=== PATIENT | male | born 1940 | race Caucasian/White ===

== ENCOUNTER 2017-04-20 12:06 | Inpatient (IN) ==
[2017-04-20] MEDS ORDERED: *HR* HYDROmorphone (PF) 1 MG/ML SYRINGE IVP ONE ×2 (12:27→14:17)
[2017-04-20] MEDS ORDERED: Ondansetron 4 MG/2 ML VIAL IVP PRN ×2 (12:27→21:21)
[2017-04-20] MEDS ORDERED: 0.9 % Sodium Chloride 1,000 ML IVC ONE (12:27)
[2017-04-20 12:50] LABS: Basophils # 0.1 K/mcL (0.0-0.2); Eosinophils # 0.4 K/mcL (0.0-0.6); Eosinophils % 4.3 %; Hematocrit 31.7 % (37.5-50.1); Hemoglobin 9.9 g/dL (12.9-16.9); Immature Granulocytes % 0.3 % (0-4); Lymphocytes % 10.3 %; Mean Corpuscular HGB Conc 31.2 g/dL (31.6-35.5); Mean Corpuscular Hemoglobin 30.7 pg (28.0-33.3); Mean Corpuscular Volume 98.4 fL (83.0-100.0); Monocytes # 0.7 K/mcL (0.0-1.3); Monocytes % 7.7 %; Neutrophils # 7.2 K/mcL (1.6-8.9); Platelet Count 251 K/mcL (140-400); Red Blood Count 3.22 M/mcL (4.19-5.50); Red Cell Distribution Width 14.6 % (11.5-14.5); Segmented Neutrophils % 76.4 %
--- NOTE | 2017-04-20 12:54 | Emergency Department Note ---
Disposition Clinical Impression: Left upper limb pain, Left upper extremity swelling Disposition: Admitted As Inpatient Condition: Fair Extremity Problem HPI - General Chief complaint: ED Extremity Problem,Nontraumatic Stated complaint: Left hand swelling/pain Time Seen by Provider: 04/20/17 12:15 Source: patient Mode of arrival: private vehicle Limitations: no limitations Nursing Notes Reviewed: Yes Vital Signs Reviewed: Yes - History of Present Illness HPI Narrative: 76-year-old male history of ESRD postoperative day 7 from left upper extremity thromboendarterectomy and fistula placement who presents to the ER with a chief complaint of left upper extremity pain. Patient reports he has had swelling in the left upper extremities since the procedure but it has worsened over the last week. States he was taking his home pain medication regimen prescribed by his vascular surgeon but the pain became unbearable today so he came in for evaluation. He is scheduled to follow up with his vascular surgeon tomorrow. Patient states he is right-hand dominant. He does report some paresthesias to the left hand and forearm. Does have decreased range of motion of the left hand secondary to swelling and pain. Pt Subjective Complaint: extremity pain, extremity swelling Onset (ago): day(s) Consistency: Worsening Injury Location: left, upper extremity Pain Scale: 9 Improves with: nothing Worsens with: nothing Associated symptoms: Reports: denies other symptoms Context: recent surgery/procedure - Related Data Home Medications Medication Instructions Recorded Confirmed Aspirin 81 mg PO DAILY 09/07/15 04/20/17 Atorvastatin [Lipitor] 40 mg PO DAILY 09/07/15 04/20/17 Calcitriol [Rocaltrol] 0.25 mcg PO BID 09/07/15 04/20/17 Calcium Carbonate/Vitamin D3 1 each PO DAILY 09/07/15 04/20/17 [Calcium 500-Vit D3 400 Tablet] Cyanocobalamin (Vitamin B-12) 500 mcg SL DAILY 09/07/15 04/20/17 [Vitamin B-12] Furosemide [Lasix] 40 mg PO DAILY 09/07/15 04/20/17 Gabapentin [Neurontin] 600 mg PO HS 09/07/15 04/20/17 Gluc/Samy-MSM#1/C/Heber/Slava/Bor 1 each PO DAILY 09/07/15 04/20/17 [Osteo Bi-Flex Caplet] Insulin Glargine [Lantus] 15 unit SQ QAM 09/07/15 04/20/17 Propafenone [Rhythmol] 150 mg PO BID 09/07/15 04/20/17 Sodium Bicarbonate 325 mg PO BID 09/07/15 04/20/17 Warfarin [Coumadin] 2.5 mg PO [id number] 09/07/15 04/20/17 Warfarin [Coumadin] 5 mg PO MO 09/07/15 04/20/17 clonazePAM [Klonopin] 0.5 mg PO HS 09/07/15 04/20/17 Calcium Acetate 667 mg PO TID 04/13/17 04/20/17 Cilostazol [Pletal] 100 mg PO BID 04/13/17 04/20/17 Multivitamin [One Daily Essential] 1 tab PO DAILY 04/13/17 04/20/17 Allergies Allergy/AdvReac Type Severity Reaction Status Date / Time Sulfa (Sulfonamide Allergy Rash Verified 04/20/17 12:13 Antibiotics) All systems ED: reviewed and negative except as stated. Cardiovascular: Denies: chest pain Respiratory: Denies: dyspnea Gastrointestinal: Denies: abdominal pain Integumentary: Reports: lesions Neurological: Reports: paresthesias Past Medical History - Past Medical History Medical history: Reports: atrial fibrillation, COPD, coronary artery disease, diabetes, GERD, hyperlipidemia, hypertension, myocardial infarction, other Surgical history: Reports: bariatric surgery, cholecystectomy, pacemaker/AICD, other Psychiatric history: Reports: no psych history, anxiety - Social History Smoking Status: Never smoker Smokeless Tobacco Status: No Alcohol use: Reports: none Drug use: Reports: none Physical Exam - General Limitations: no limitations General appearance: alert, in no apparent distress - Head Head exam: atraumatic, normocephalic - Eye Eye exam: Present: normal appearance - ENT ENT exam: normal exam - Neck Neck exam: Present: normal inspection, full ROM - Chest Chest inspection: Present: normal inspection, symmetric chest wall rise - Respiratory Respiratory exam: Present: normal lung sounds bilaterally - Cardiovascular Cardiovascular exam: Present: regular rate, normal rhythm, normal heart sounds - Abdominal Exam Abdominal exam: Present: soft, Non-Tender. Absent: tenderness - Expanded Upper Extremity Exam Shoulder exam: Present: normal inspection, full ROM Arm exam: Present: swelling (Mild soft tissue swelling) Elbow exam: Present: tenderness, other (bruit palpated just medial to the left elbow) Forearm/Wrist exam: Present: tenderness, swelling (Soft tissue swelling of the elbow distal to the hand) Hand exam: Present: tenderness (There is tenderness over the dorsum of the left hand with significant soft tissue swelling and ecchymosis), swelling, ecchymosis. Absent: full ROM Course Course Narrative: Patient seen and examined upon arrival. Unable to appreciate a radial pulse by ultrasound or palpation. Bruit is present adjacent to the medial epicondyle. He has significant soft tissue swelling more appreciable just proximal to the elbow and distal to the hand. His hand is cold to the touch with a delayed cap refill of 4 seconds. Plan to discuss with his mold yard supervisor and vascular surgeon for workup and management. - Reevaluation(s) Reevaluation #1: Discussed with emergency vehicle technician after arterial and venous studies. Reports the patient was unable to tolerate some of the procedure but they were able to visualize to mistreated and no proximal DVT normal arterial flow and patency of his fistula. I relayed these findings to the patient was agreeable with admission. He does feel better after some pain medication. I will also discuss with his vascular surgeon given his ultrasound findings - Consultations Consultation #1: I spoke with the on-call mold yard supervisor Dr. Mcdonald. The patient follows with him for end-stage renal disease currently being managed without dialysis. Discussed the patient's history and exam and concerns. He agrees with concern for a still syndrome and recommends we also speak with vascular surgery. Reports that if we have to do a dye load at study to treat with gentle fluids as well as NAC and the patient will likely require dialysis. Consultation #2: I spoke with the on-call vascular surgeon Dr. Ambrose. Patient is postoperative day 7 from a left upper extremity radial thromboendarterectomy and fistula placement. Here we were unable to appreciate a radial pulse by ultrasound or palpation. Discussed with the vascular surgeon who reports that he had poor radial signal operatively. Does report to check and ulnar pulse as well as pursue arterial Doppler imaging. Agreeable with DVT rule out of the upper betsy by ultrasound as well. Does not recommend angiogram for evaluation. Consultation #3: I spoke again with the patient's vascular surgeon and mold yard supervisor. They are both in agreement to evaluate the patient in the hospital and consultation. Vital Signs Temperature 98.1 F 04/20/17 12:10 Pulse Rate 93 04/20/17 12:10 Respiratory Rate 20 04/20/17 12:10 Blood Pressure 188/82 04/20/17 12:10 O2 Sat by Pulse Oximetry 94 04/20/17 12:10 Temperature 98.0 F 04/24/17 11:46 Pulse Rate 52 04/24/17 11:46 Respiratory Rate 15 04/24/17 11:46 Blood Pressure 144/62 04/24/17 11:46 O2 Sat by Pulse Oximetry 91 04/24/17 11:46 Oxygen Delivery Oxygen Delivery Room Air Extremity Problem, Nontraumati - MDM Narrative Medical decision making narrative: 76-year-old male presents to the ER to the left upper extremity pain and swelling. He is postoperative day 7 from a left upper extremity fistula placement for dialysis. Here noted to have an absent radial pulse on exam with the presence of an ulnar pulse. Case discussed with his vascular surgeon who reported that his radial signal was poor when he evaluated him one week ago. Did discuss about ultrasound for DVT evaluation as well as Doppler study. Ultrasound does not demonstrate a proximal DVT with flow confirmed through the fistula however the patient was unable to tolerate the full procedure. Case discussed with his mold yard supervisor and vascular surgeon. He is admitted to the hospitalist service for pain control and for further management. - Medical Records Medical records reviewed: Yes I reviewed the patient's medical records. - Lab Data Lab results reviewed: Yes I reviewed the patient's lab results. Result diagrams: 04/24/17 03:55 04/24/17 03:55 Lab Results 04/20/17 04/20/17 04/20/17 Range/Units 12:40 12:40 12:40 WBC 9.4 (4.3-11.1) K/mcL RBC 3.22 L (4.19-5.50) M/mcL Hgb 9.9 L (12.9-16.9) g/dL Hct 31.7 L (37.5-50.1) % MCV 98.4 (83.0-100.0) fL MCH 30.7 (28.0-33.3) pg MCHC 31.2 L (31.6-35.5) g/dL RDW 14.6 H (11.5-14.5) % Plt Count 251 (140-400) K/mcL MPV 10.0 (9.4-12.4) fL Immature Gran % 0.3 (0-4) % Seg Neutrophils % 76.4 % Lymphocytes % 10.3 % Monocytes % 7.7 % Eosinophils % 4.3 % Basophils % 1.0 % Neutrophils # 7.2 (1.6-8.9) K/mcL Lymphocytes # 1.0 (0.6-4.6) K/mcL Monocytes # 0.7 (0.0-1.3) K/mcL Eosinophils # 0.4 (0.0-0.6) K/mcL Basophils # 0.1 (0.0-0.2) K/mcL PT 15.3 H (9.4-12.1) Seconds INR 1.4 APTT 33.5 (26.0-36.0) Seconds Sodium 140 (136-145) mEq/L Potassium 3.8 (3.5-5.1) mEq/L Chloride 109 H (98-107) mEq/L Carbon Dioxide 18 L (23-29) mEq/L BUN 119 H (8-23) mg/dL Creatinine 6.28 H (0.70-1.30) mg/dL Est GFR ( Amer) 11 L (> 60) Est GFR (Non-Af Amer) 9 L (> 60) BUN/Creatinine Ratio 19 (6-26) Glucose 185 H (70-105) mg/dL POC Glucose (58-89) Calculated Osmolality 333 H (280-300) Lactic Acid (0.5-2.2) mmol/L Calcium 9.0 (8.6-10.3) mg/dL Magnesium (1.6-2.6) mg/dL Total Bilirubin (0.3-1.0) mg/dL AST (13-39) Units/L ALT (7-52) Units/L Alkaline Phosphatase (34-104) Units/L Serum Total Protein (6.4-8.9) g/dL Albumin (3.5-5.7) g/dL Globulin (2.4-3.5) g/dL Albumin/Globulin Ratio (1.1-2.2) Triglycerides (< 150) mg/dL Cholesterol (< 200) mg/dL LDL Cholesterol, Calc (0-99) mg/dL VLDL Cholesterol, Calc (< 31) mg/dL HDL Cholesterol (40-59) mg/dL Cholesterol/HDL Ratio (0-4.9) Hep Bs Antigen (Nonreactive) Hep Bs Antibody mIU/mL Specimen Rejected 04/20/17 04/20/17 04/20/17 Range/Units 14:47 18:10 21:21 WBC (4.3-11.1) K/mcL RBC (4.19-5.50) M/mcL Hgb (12.9-16.9) g/dL Hct (37.5-50.1) % MCV (83.0-100.0) fL MCH (28.0-33.3) pg MCHC (31.6-35.5) g/dL RDW (11.5-14.5) % Plt Count (140-400) K/mcL MPV (9.4-12.4) fL Immature Gran % (0-4) % Seg Neutrophils % % Lymphocytes % % Monocytes % % Eosinophils % % Basophils % % Neutrophils # (1.6-8.9) K/mcL Lymphocytes # (0.6-4.6) K/mcL Monocytes # (0.0-1.3) K/mcL Eosinophils # (0.0-0.6) K/mcL Basophils # (0.0-0.2) K/mcL PT (9.4-12.1) Seconds INR APTT (26.0-36.0) Seconds Sodium (136-145) mEq/L Potassium (3.5-5.1) mEq/L Chloride (98-107) mEq/L Carbon Dioxide (23-29) mEq/L BUN (8-23) mg/dL Creatinine (0.70-1.30) mg/dL Est GFR ( Amer) (> 60) Est GFR (Non-Af Amer) (> 60) BUN/Creatinine Ratio (6-26) Glucose (70-105) mg/dL POC Glucose 167 H 151 H (58-89) Calculated Osmolality (280-300) Lactic Acid 1.0 (0.5-2.2) mmol/L Calcium (8.6-10.3) mg/dL Magnesium (1.6-2.6) mg/dL Total Bilirubin (0.3-1.0) mg/dL AST (13-39) Units/L ALT (7-52) Units/L Alkaline Phosphatase (34-104) Units/L Serum Total Protein (6.4-8.9) g/dL Albumin (3.5-5.7) g/dL Globulin (2.4-3.5) g/dL Albumin/Globulin Ratio (1.1-2.2) Triglycerides (< 150) mg/dL Cholesterol (< 200) mg/dL LDL Cholesterol, Calc (0-99) mg/dL VLDL Cholesterol, Calc (< 31) mg/dL HDL Cholesterol (40-59) mg/dL Cholesterol/HDL Ratio (0-4.9) Hep Bs Antigen (Nonreactive) Hep Bs Antibody mIU/mL Specimen Rejected 04/21/17 04/21/17 04/21/17 Range/Units 04:06 04:06 04:06 WBC (4.3-11.1) K/mcL RBC (4.19-5.50) M/mcL Hgb (12.9-16.9) g/dL Hct (37.5-50.1) % MCV (83.0-100.0) fL MCH (28.0-33.3) pg MCHC (31.6-35.5) g/dL RDW (11.5-14.5) % Plt Count (140-400) K/mcL MPV (9.4-12.4) fL Immature Gran % (0-4) % Seg Neutrophils % % Lymphocytes % % Monocytes % % Eosinophils % % Basophils % % Neutrophils # (1.6-8.9) K/mcL Lymphocytes # (0.6-4.6) K/mcL Monocytes # (0.0-1.3) K/mcL Eosinophils # (0.0-0.6) K/mcL Basophils # (0.0-0.2) K/mcL PT 16.2 H (9.4-12.1) Seconds INR 1.5 APTT 31.7 (26.0-36.0) Seconds Sodium 136 (136-145) mEq/L Potassium 4.6 (3.5-5.1) mEq/L Chloride 110 H (98-107) mEq/L Carbon Dioxide 11 L (23-29) mEq/L BUN 121 H (8-23) mg/dL Creatinine 6.28 H (0.70-1.30) mg/dL Est GFR ( Amer) 11 L (> 60) Est GFR (Non-Af Amer) 9 L (> 60) BUN/Creatinine Ratio 19 (6-26) Glucose 218 H (70-105) mg/dL POC Glucose (58-89) Calculated Osmolality 327 H (280-300) Lactic Acid (0.5-2.2) mmol/L Calcium 8.2 L (8.6-10.3) mg/dL Magnesium 1.8 (1.6-2.6) mg/dL Total Bilirubin 0.6 (0.3-1.0) mg/dL AST 19 (13-39) Units/L ALT 5 L (7-52) Units/L Alkaline Phosphatase 135 H (34-104) Units/L Serum Total Protein 6.3 L (6.4-8.9) g/dL Albumin 3.3 L (3.5-5.7) g/dL Globulin 3.0 (2.4-3.5) g/dL Albumin/Globulin Ratio 1.1 (1.1-2.2) Triglycerides 88 (< 150) mg/dL Cholesterol 64 (< 200) mg/dL LDL Cholesterol, Calc 25 (0-99) mg/dL VLDL Cholesterol, Calc 18 (< 31) mg/dL HDL Cholesterol 21 L (40-59) mg/dL Cholesterol/HDL Ratio 3.0 (0-4.9) Hep Bs Antigen (Nonreactive) Hep Bs Antibody mIU/mL Specimen Rejected Clotted 04/21/17 04/21/17 04/21/17 Range/Units 05:27 07:11 10:45 WBC 8.0 (4.3-11.1) K/mcL RBC 3.00 L (4.19-5.50) M/mcL Hgb 9.2 L (12.9-16.9) g/dL Hct 29.9 L (37.5-50.1) % MCV 99.7 (83.0-100.0) fL MCH 30.7 (28.0-33.3) pg MCHC 30.8 L (31.6-35.5) g/dL RDW 14.7 H (11.5-14.5) % Plt Count 221 (140-400) K/mcL MPV 9.8 (9.4-12.4) fL Immature Gran % 0.4 (0-4) % Seg Neutrophils % 71.2 % Lymphocytes % 12.9 % Monocytes % 11.4 % Eosinophils % 3.1 % Basophils % 1.0 % Neutrophils # 5.7 (1.6-8.9) K/mcL Lymphocytes # 1.0 (0.6-4.6) K/mcL Monocytes # 0.9 (0.0-1.3) K/mcL Eosinophils # 0.3 (0.0-0.6) K/mcL Basophils # 0.1 (0.0-0.2) K/mcL PT (9.4-12.1) Seconds INR APTT (26.0-36.0) Seconds Sodium (136-145) mEq/L Potassium (3.5-5.1) mEq/L Chloride (98-107) mEq/L Carbon Dioxide (23-29) mEq/L BUN (8-23) mg/dL Creatinine (0.70-1.30) mg/dL Est GFR ( Amer) (> 60) Est GFR (Non-Af Amer) (> 60) BUN/Creatinine Ratio (6-26) Glucose (70-105) mg/dL POC Glucose 188 H 139 H (58-89) Calculated Osmolality (280-300) Lactic Acid (0.5-2.2) mmol/L Calcium (8.6-10.3) mg/dL Magnesium (1.6-2.6) mg/dL Total Bilirubin (0.3-1.0) mg/dL AST (13-39) Units/L ALT (7-52) Units/L Alkaline Phosphatase (34-104) Units/L Serum Total Protein (6.4-8.9) g/dL Albumin (3.5-5.7) g/dL Globulin (2.4-3.5) g/dL Albumin/Globulin Ratio (1.1-2.2) Triglycerides (< 150) mg/dL Cholesterol (< 200) mg/dL LDL Cholesterol, Calc (0-99) mg/dL VLDL Cholesterol, Calc (< 31) mg/dL HDL Cholesterol (40-59) mg/dL Cholesterol/HDL Ratio (0-4.9) Hep Bs Antigen (Nonreactive) Hep Bs Antibody mIU/mL Specimen Rejected 04/21/17 Range/Units 12:40 WBC (4.3-11.1) K/mcL RBC (4.19-5.50) M/mcL Hgb (12.9-16.9) g/dL Hct (37.5-50.1) % MCV (83.0-100.0) fL MCH (28.0-33.3) pg MCHC (31.6-35.5) g/dL RDW (11.5-14.5) % Plt Count (140-400) K/mcL MPV (9.4-12.4) fL Immature Gran % (0-4) % Seg Neutrophils % % Lymphocytes % % Monocytes % % Eosinophils % % Basophils % % Neutrophils # (1.6-8.9) K/mcL Lymphocytes # (0.6-4.6) K/mcL Monocytes # (0.0-1.3) K/mcL Eosinophils # (0.0-0.6) K/mcL Basophils # (0.0-0.2) K/mcL PT (9.4-12.1) Seconds INR APTT (26.0-36.0) Seconds Sodium (136-145) mEq/L Potassium (3.5-5.1) mEq/L Chloride (98-107) mEq/L Carbon Dioxide (23-29) mEq/L BUN (8-23) mg/dL Creatinine (0.70-1.30) mg/dL Est GFR ( Amer) (> 60) Est GFR (Non-Af Amer) (> 60) BUN/Creatinine Ratio (6-26) Glucose (70-105) mg/dL POC Glucose (58-89) Calculated Osmolality (280-300) Lactic Acid (0.5-2.2) mmol/L Calcium (8.6-10.3) mg/dL Magnesium (1.6-2.6) mg/dL Total Bilirubin (0.3-1.0) mg/dL AST (13-39) Units/L ALT (7-52) Units/L Alkaline Phosphatase (34-104) Units/L Serum Total Protein (6.4-8.9) g/dL Albumin (3.5-5.7) g/dL Globulin (2.4-3.5) g/dL Albumin/Globulin Ratio (1.1-2.2) Triglycerides (< 150) mg/dL Cholesterol (< 200) mg/dL LDL Cholesterol, Calc (0-99) mg/dL VLDL Cholesterol, Calc (< 31) mg/dL HDL Cholesterol (40-59) mg/dL Cholesterol/HDL Ratio (0-4.9) Hep Bs Antigen Nonreactive (Nonreactive) Hep Bs Antibody 0.00 mIU/mL Specimen Rejected - Radiology Data Radiology results reviewed: Yes I reviewed the patient's radiology results. Yulissa - Yulissa Situation: Demographics, MOA Background: Presenting Complaint, Relevant PMH, Meds, & Allergies Assessment: Course and respsone to treatment, Exam Concerns, Patient/Family Expectation Recommendation: Barrier(s) to disposition, Recommendation based on pending studies, treatments, or consults SMaximilian Report Given to: Dr. Elise Duenas Repor Time: 15:02 Attestation Statement - Attestation Attestation: I, Joe Villareal, examined this patient and my medical decision-making was reviewed with the DESKIDDING MACHINE OPERATOR/PA/Advanced Practice Nurse/Resident Physician. I agree with the documented findings, disposition and treatment plan as described except to the extent set forth below. 76-year-old male presents to emergency room with concerns of left upper extremity pain and swelling. Patient is status post thromboendarterectomy and fistula placement of the left upper extremity 7 days. On initial presentation the patient has significant edema of the left upper extremity. He has decreased pulse to the radial artery of the left upper extremity. Resident spoke with the vascular surgeon who is familiar with this patient's case and presentation who stated patient had poor radial artery flow to begin with. Patient has identifiable flow within the radial artery although it is limited however there is palpable pulse to the ulnar artery. Initial concern was for possible compartment syndrome however after speaking with the vascular surgeon we will forego the CTA of the left upper extremity and obtain ultrasound of the left of her x-rays to rule out DVT and to further evaluate vascular flow. Patient will be admitted to the hospital for further care and evaluation.
[2017-04-20 12:55] LABS: INR 1.4; Prothrombin Time 15.3 Seconds (9.4-12.1)
[2017-04-20 12:58] LABS: Activated Partial Thrombo Time 33.5 Seconds (26.0-36.0)
[2017-04-20 13:08] LABS: Potassium 3.8 mEq/L (3.5-5.1)
[2017-04-20] MEDS ORDERED: Naloxone 0.4 MG/ML INJ IVP PRN (21:21)
[2017-04-20] MEDS ORDERED: Acetaminophen 325 MG TABLET PO PRN (21:21)
[2017-04-20] MEDS ORDERED: Dextrose Gel 15 GM PO PRN ×2 (21:31)
[2017-04-20] MEDS ORDERED: D5% in Water 1,000 ML IVC PRN (21:31)
[2017-04-20] MEDS ORDERED: *HR* Dextrose 50 % in Water (Syg) 50 ML SYRINGE IVP PRN (21:31)
[2017-04-20] MEDS: Insulin LISPRO 300 UNITS/3 ML VIAL SQ SCH (21:54)
--- NOTE | 2017-04-20 23:08 | Internal Med History&Physical ---
Date of Encounter: 04/20/17 Time of Encounter: 20:00 Assessment and Plan (1) Pain and swelling of left upper extremity Current visit: Yes Status: Acute Acute edema and erythema of LUE 1 week following thromboendarterectomy and fistula placement. Consults placed to Nephrology and Surgery in ED and I appreciate the consults. Pt. to be NPO @ midnight for possible surgical intervention in a.m. Will hold Coumadin tonight and resume tomorrow if surgery is not warranted. Continue Rhythmol and aspirin. Stair-step pain medications for pain mgmt. Pt. discussed w/Dr. Meraz who agrees w/plan of care. Pt. is at high risk for further morbidity based on current pain/sweeling/sx in LUE and current GFR of 9 and creatinine of 6.28. Observation. (2) GERD (gastroesophageal reflux disease) Current visit: Yes Status: Chronic Hx of chronic GERD. IVP Zofran 6 mg Q6 PRN. Prilosec 40 mg daily. Qualifiers: Esophagitis presence: esophagitis presence not specified Qualified Code(s) : K21.9 - Gastro-esophageal reflux disease without esophagitis (3) HLD (hyperlipidemia) Current visit: Yes Status: Chronic Hx of chronic HLD. Lipid panel in a.m. labs. Continue pts. Lipitor. Qualifiers: Hyperlipidemia type: pure hypercholesterolemia Qualified Code(s): E78.00 - Pure hypercholesterolemia, unspecified; E78.0 - Pure hypercholesterolemia (4) HTN (hypertension) Current visit: Yes Status: Chronic Hx of chronic HTN. Pt. does not currently take HTN medication. Monitor pt. and VS. Qualifiers: Hypertension type: essential hypertension Qualified Code(s): I10 - Essential (primary) hypertension (5) Atrial fibrillation Current visit: Yes Status: Chronic Hx of chronic paroxysmal atrial fibrillation. Continuous cardiac telemetry. Continue pts. Rhythmol and aspirin therapy. Will hold Coumadin d/t possible surgical intervention in a.m. and continue w/pharmacy dosing tomorrow if surgery is not warranted. Qualifiers: Atrial fibrillation type: paroxysmal Qualified Code(s): I48.0 - Paroxysmal atrial fibrillation (6) CAD (coronary artery disease) Current visit: Yes Status: Chronic Hx of chronic CAD w/hx of angioplasty and stent placement x2. Continuous cardiac telemetry. Continue patient's Lipitor, aspirin therapy, and Rythmol. We will hold patient's Coumadin due to possible surgical intervention tomorrow. If surgery is not recommended or warranted, will continue patient's Coumadin with pharmacy dosing. Qualifiers: Coronary Disease-Associated Artery/Lesion type: unspecified vessel or lesion type Associated angina: without angina Qualified Code(s): I25.10 - Atherosclerotic heart disease of [place] coronary artery without angina pectoris (7) Diabetes Current visit: Yes Status: Chronic Hx of chronic diabetes controlled w/insulin. Continue pts. a.m. insulin and add low-dose correction insulin sliding scale with hypoglycemic protocol. A1c in a.m. labs. BG checks before meals at bedtime. Qualifiers: Diabetes mellitus type: type 2 Diabetes mellitus complication status: without complication Diabetes mellitus shelter insulin use: with superintendent container terminal use Qualified Code(s): E11.9 - Type 2 diabetes mellitus without complications (8) ESRD (end stage renal disease) Current visit: Yes Status: Chronic Hx of ESRD. Pt. had LUE thromboendarterectomy and fistula placement one week ago. Current creatinine 6.28 and GFR 9. Will use IV fluids judiciously and avoid nephrotoxins. (9) DVT prophylaxis Current visit: Yes Status: Acute Bilateral SCDs on LEs for DVT prophylaxis d/t possible surgical intervention in the a.m. on LUE. Internal Medicine - H&P: HPI Chief complaint: LUE swelling/pain Admitted From: Emergency Dept Plans for Post Hospital Care: Home History of present illness: Mr. Nicole is a 76 year old male with medical hx of atrial fibrillation, COPD, CAD, diabetes controlled with insulin, GERD, HLD, HTN, and history of angioplasty with stent placement 2 presents to ED with chief complaint of erythema and edema to left upper extremity. Patient reports surgery in 1 week ago in [facility]. Pt reports pain and swelling began 1 day after surgery which has worsened in the past 2 days. Pt. reports residual weakness to the LUE and LLE d/ t previous stroke. Patient denies recent illness, fever, chills, nausea, vomiting, chest pain, palpitations, changes in vision, headache, cough, congestion, unusual bleeding, diarrhea, constipation, numbness, tingling, dizziness, lightheadedness, pre-syncope, or syncope. Past Med Surg Social Fam HX - Past Medical History Source: patient, old records reviewed Medical history: atrial fibrillation, COPD, coronary artery disease, diabetes, GERD, hyperlipidemia, hypertension, myocardial infarction, other Psychiatric history: no psych history, anxiety - Past Surgical History Surgical History: bariatric surgery, cholecystectomy, pacemaker/AICD, other - Social History Smoking Status: Former smoker Packs per day: 4 PPD - Reports quitting 22 years ago Smokeless Tobacco Status: No Alcohol use: none Drug use: none Current living situation: Home Activity Level: Independent ambulation Recent Out of Country Travel Within the Last 8 Weeks: No Exposure or Possible Exposure to Illness During Travel: No - Family History Father History Unknown: Yes Race: Family Member Ethnicity: Non- Living Status: Age at : 55 Cause of : Stroke Hx Family Cardiac Disorders: Yes (Stroke) Hx Family Respiratory Disorders: No Hx Family Cancer: No Hx Family GI Disorders: No Hx Family Endocrine Disorder: No Hx Family Neuromuscular Disorders: No Hx Family Neurologic Disorders: No Hx Family HEENT Disorders: No Hx Family Autoimmune Disorders: No Mother Race: Family Member Ethnicity: Non- Living Status: Age at : 70 Cause of : [place] Hx Family Cardiac Disorders: Yes ([place], HTN) Hx Family Endocrine Disorder: Yes (DM) Brother Race: Family Member Ethnicity: Non- Living Status: Age at : 70 Cause of : Fall w/injury to head Sister Race: Family Member Ethnicity: Non- Living Status: Still Living Hx Family Endocrine Disorder: Yes (DM) Internal Medicine - H&P: Meds Aspirin 81 mg PO DAILY 09/07/15 [History] Atorvastatin [Lipitor] 40 mg PO DAILY 09/07/15 [History] Calcitriol [Rocaltrol] 0.25 mcg PO BID 09/07/15 [History] Calcium Carbonate/Vitamin D3 [Calcium 500-Vit D3 400 Tablet] 1 each PO DAILY 11/15 [History] Cyanocobalamin (Vitamin B-12) [Vitamin B-12] 500 mcg SL DAILY 09/07/15 [History] Furosemide [Lasix] 40 mg PO DAILY 09/07/15 [History] Gabapentin [Neurontin] 600 mg PO HS 09/07/15 [History] Gluc/Samy-MSM#1/C/Heber/Slava/Bor [Osteo Bi-Flex Caplet] 1 each PO DAILY 09/07/15 [ History] Insulin Glargine [Lantus] 15 unit SQ QAM 09/07/15 [History] Propafenone [Rhythmol] 150 mg PO BID 09/07/15 [History] Sodium Bicarbonate 325 mg PO BID 09/07/15 [History] Warfarin [Coumadin] 2.5 mg PO SUTUWETHFRSA 09/07/15 [History] Warfarin [Coumadin] 5 mg PO MO 09/07/15 [History] clonazePAM [Klonopin] 0.5 mg PO HS 09/07/15 [History] Calcium Acetate 667 mg PO TID 04/13/17 [History] Cilostazol [Pletal] 100 mg PO BID 04/13/17 [History] Multivitamin [One Daily Essential] 1 tab PO DAILY 04/13/17 [History] 3 Allergy/AdvReac Type Severity Reaction Status Date / Time Sulfa (Sulfonamide Allergy Rash Verified 04/20/17 12:13 Antibiotics) All Systems PM: A 10-system review of systems was performed and is negative for pertinent findings except as documented above in the HPI. - Constitutional Constitutional: no chills, no fever(s), no night sweats - EENT Eyes: no change in vision, no discharge, no pain, no photophobia Ears: no ear discharge, no ear pain, no tinnitus Nose, mouth and throat: no dysphagia, no nasal discharge, no neck pain, no sore throat - Breasts Breasts: as per HPI - Cardiovascular Cardiovascular ROS IM: no chest pain, no diaphoresis, no dyspnea, no lightheadedness, no palpitations, no syncope - Respiratory Respiratory: no cough, no dyspnea, no wheezing, no excessive phlegm production - Gastrointestinal Gastrointestinal: no abdominal pain, no diarrhea, no hematemesis, no hematochezia, no melena, no nausea, no vomiting - Genitourinary Genitourinary ROS male: as per HPI - Musculoskeletal Musculoskeletal ROS IM: no numbness, no tingling - Integumentary Integumentary IM: as per HPI, erythema (LUE), other (Edema to LUE) - Neurological Neurological ROS: no confusion, no convulsions, no focal weakness, no numbness, no tingling, no tremor(s) - Psychiatric Psychiatric: as per HPI - Endocrine Endocrine IM: as per HPI - Hematologic/Lymphatic Hematologic/Lymphatic: no easy bruising - Allergic/Immunologic Allergic/Immunologic: as per HPI - Constitutional Vitals: Temp Pulse Resp BP Pulse Ox 98.0 F 93 16 172/89 96 04/20/17 20:43 04/20/17 20:43 04/20/17 20:43 04/20/17 20:43 04/20/17 20:43 General appearance: Present: cooperative, mild distress (Pain in LUE), A&O X 3, pleasant, obese, answers questions appropriately - Head Head exam: Present: atraumatic, normocephalic - Eye Eye exam: Present: PERRL, conjuntiva pink, sclera anicteric Pupils: Present: PERRL - ENT ENT exam: Present: normal exam, normal external ear exam - Neck Neck exam general surgery: Present: normal inspection, supple, trachea midline. Absent: lymphadenopathy - Respiratory Respiratory exam: Present: CTAB. Absent: accessory muscle use, rales, rhonchi, wheezes - Cardiovascular Cardiovascular exam: Present: RRR, +S1, +S2. Absent: diastolic murmur, gallop, rubs, systolic murmur - GI/Abdominal GI/Abdominal exam: Present: normal bowel sounds, soft, no peritoneal signs. Absent: distended, tenderness - Rectal Rectal exam: Present: deferred - Additional comments: exam deferred. - Extremities Exam Extremities exam: Present: warm, radial pulses palpable and symmetrical. Absent : calf tenderness, cyanotic, pedal edema - Back Exam Back exam: Present: normal inspection - Neurological Exam Neurological exam: Present: CN II-XII intact, oriented X3, no focal deficits. Absent: pronater drift, facial droop, speech deficit - Psychiatric Psychiatric exam: Present: agitated - Skin Skin exam: Present: erythema (And edema of LUE) Internal Med - H&P Results - Labs CBC & Chem 7: 04/20/17 12:40 04/20/17 12:40 - Diagnostic Studies Chest x-ray Additional comments: Impressions Chest X-Ray 04/20/17 12:27 IMPRESSION: Cardiomegaly with trace left pleural effusion. D/ / Mimi Gonzalez MD / Mimi Gonzalez MD Interpreting Provider: Mimi M. Gonzalez, MD
[2017-04-20] MEDS: *HR* HYDROcodone/Acet 5/325 mg TABLET PO PRN (23:27)
[2017-04-21] MEDS: *HR* HYDROmorphone (PF) 1 MG/ML SYRINGE IVP PRN ×5 (00:09→21:33)
[2017-04-21] MEDS ORDERED: *HR* HYDROmorphone (PF) 1 MG/ML SYRINGE IVP ONE (02:35)
[2017-04-21 04:38] LABS: INR 1.5; Prothrombin Time 16.2 Seconds (9.4-12.1)
[2017-04-21 04:40] LABS: Activated Partial Thrombo Time 31.7 Seconds (26.0-36.0)
[2017-04-21 05:20] LABS: Albumin 3.3 g/dL (3.5-5.7); Albumin/Globulin Ratio 1.1 (1.1-2.2); Bilirubin,Total 0.6 mg/dL (0.3-1.0); Calcium 8.2 mg/dL (8.6-10.3); Magnesium 1.8 mg/dL (1.6-2.6); Potassium 4.6 mEq/L (3.5-5.1); Total Protein 6.3 g/dL (6.4-8.9)
[2017-04-21 05:41] LABS: Basophils # 0.1 K/mcL (0.0-0.2); Eosinophils # 0.3 K/mcL (0.0-0.6); Eosinophils % 3.1 %; Hematocrit 29.9 % (37.5-50.1); Hemoglobin 9.2 g/dL (12.9-16.9); Immature Granulocytes % 0.4 % (0-4); Lymphocytes % 12.9 %; Mean Corpuscular HGB Conc 30.8 g/dL (31.6-35.5); Mean Corpuscular Hemoglobin 30.7 pg (28.0-33.3); Mean Corpuscular Volume 99.7 fL (83.0-100.0); Mean Platelet Volume 9.8 fL (9.4-12.4); Monocytes # 0.9 K/mcL (0.0-1.3); Monocytes % 11.4 %; Neutrophils # 5.7 K/mcL (1.6-8.9); Platelet Count 221 K/mcL (140-400); Red Cell Distribution Width 14.7 % (11.5-14.5); Segmented Neutrophils % 71.2 %
[2017-04-21] MEDS: Calcium Acetate 667 MG CAPSULE PO SCH ×3 (08:09→17:51)
[2017-04-21] MEDS: Cyanocobalamin (B-12) 1,000 MCG TABLET PO SCH (08:09)
[2017-04-21] MEDS: OSTEO BI FLEX PO SCH (08:10)
[2017-04-21] MEDS: Multivit/Ca/Min/Fe/FA 1 TAB TABLET PO SCH (08:10)
[2017-04-21] MEDS: Furosemide 40 MG TABLET PO SCH (08:10)
[2017-04-21] MEDS: Calcium 500-Vit D3 PO SCH (08:11)
[2017-04-21] MEDS ORDERED: Aspirin 81 MG TAB.CHEW PO SCH (09:00)
[2017-04-21] MEDS ORDERED: NON-FORMULARY MEDICATION 1 EACH EACH (Insulin Glargine [Lantus] 15 UNIT) SQ SCH (09:00)
[2017-04-21] MEDS: Insulin LISPRO 300 UNITS/3 ML VIAL SQ SCH ×4 (09:08→21:34)
[2017-04-21] MEDS: Insulin DETEMIR 100 UNIT/ML X5UNITS SQ SCH (09:08)
--- NOTE | 2017-04-21 10:54 | Nephrology Consult Note ---
Date of Encounter: 04/21/17 Time of Encounter: 10:49 Assessment and Plan (1) Chronic kidney disease, stage V Current Visit: Yes Status: Chronic Patient has chronic kidney disease stage V secondary to diabetes and hypertension. GFR is 9. Patient is 1 week postop from AV fistula formation and is having complications related to this with an apparent cellulitis with worsening pain and swelling. Vascular surgery, Dr. Ambrose, is following and we appreciate his assistance. Concern for vascular steal syndrome. Formal vascular studies pending. Patient has worsening of his metabolic acidosis and uremia related to chronic kidney disease. In light of this we will plan to initiate hemodialysis. We will consult interventional radiology for permacath placement. Continue to hold Coumadin, aspirin has been stopped in preparation for this procedure. Nothing by mouth at midnight. Plan for initiation of hemodialysis tomorrow pending access. Anemia: Likely related to anemia of chronic kidney disease. Hemoglobin 9.2 this morning, goal hemoglobin of 10 and 11. No evidence of active bleeding. We will initiate Aranesp 40 g. Continue iron-containing vitamin supplementation. Albumin low at 3.3. Recommend adding Nepro shakes, one can, 3 times a day with meals once the patient is able to eat. (2) Complication of AV dialysis fistula Current Visit: Yes Status: Acute Qualifiers: Encounter type: initial encounter Qualified Code(s): T82.9XXA - Unspecified complication of cardiac and vascular prosthetic device, implant and graft, initial encounter (3) Atrial fibrillation Current Visit: Yes Status: Chronic Qualifiers: Atrial fibrillation type: paroxysmal Qualified Code(s): I48.0 - Paroxysmal atrial fibrillation (4) Diabetes Current Visit: Yes Status: Chronic Qualifiers: Diabetes mellitus type: type 2 Diabetes mellitus complication status: without complication Diabetes mellitus penitentiary insulin use: with penitentiary use Qualified Code(s): E11.9 - Type 2 diabetes mellitus without complications ; Z79.4 - terminal gauger (current) use of insulin; Z79.4 - prison (current) use of insulin; Z79.4 - terminal gauger (current) use of insulin; Z79.4 - prison ( current) use of insulin (5) HTN (hypertension) Current Visit: Yes Status: Chronic Qualifiers: Hypertension type: essential hypertension Qualified Code(s): I10 - Essential (primary) hypertension (6) CAD (coronary artery disease) Current Visit: Yes Status: Chronic Qualifiers: Coronary Disease-Associated Artery/Lesion type: unspecified vessel or lesion type Associated angina: without angina Qualified Code(s): I25.10 - Atherosclerotic heart disease of [place] coronary artery without angina pectoris History of Present Illness - Reason for Consult Consult date: 04/21/17 Chronic Kidney Disease Requesting physician: Kyle Sanchez - Chief Complaint L arm pain - History of Present Illness Patient is a 76-year-old male with history of chronic kidney disease stage V, atrial fibrillation who presents with left arm pain and swelling. History is somewhat limited by the patient recently receiving pain medication and being somewhat drowsy. Patient states that approximately 1 week ago on April 13 the patient underwent procedure to establish a fistula in his left extremity for chronic dialysis access. He states that since then he has had increasing pain and swelling in the left upper extremity. He states that the pain was so unbearable that he had to come to the hospital yesterday. He states he has never had anything like this before. Other than this he has no other complaints. He denies uremic symptoms such as loss of appetite, fatigue, confusion. He denies fever, chills, chest pain, shortness of breath, abdominal pain, worsening lower extremity edema. Past Med Surg Social Fam HX - Past Medical History Medical history: atrial fibrillation, COPD, coronary artery disease, diabetes, GERD, hyperlipidemia, hypertension, myocardial infarction, other Psychiatric history: no psych history, anxiety - Past Surgical History Surgical History: bariatric surgery, cholecystectomy, pacemaker/AICD, other - Social History Smoking Status: Former smoker Packs per day: 4 PPD - Reports quitting 22 years ago Smokeless Tobacco Status: No Alcohol use: none Drug use: none - Family History Mother Race: Family Member Ethnicity: Non- Living Status: Age at : 70 Cause of : ID Hx Family Cardiac Disorders: Yes ([place], HTN) Hx Family Endocrine Disorder: Yes (DM) Brother Race: Family Member Ethnicity: Non- Living Status: Age at : 70 Cause of : Fall w/injury to head Sister Race: Family Member Ethnicity: Non- Living Status: Still Living Hx Family Endocrine Disorder: Yes (DM) Father History Unknown: Yes Race: Family Member Ethnicity: Non- Living Status: Age at : 55 Cause of : Stroke Hx Family Cardiac Disorders: Yes (Stroke) Hx Family Respiratory Disorders: No Hx Family Cancer: No Hx Family GI Disorders: No Hx Family Endocrine Disorder: No Hx Family Neuromuscular Disorders: No Hx Family Neurologic Disorders: No Hx Family HEENT Disorders: No Hx Family Autoimmune Disorders: No Medications and Allergies Aspirin 81 mg PO DAILY 09/07/15 [History] Atorvastatin [Lipitor] 40 mg PO DAILY 09/07/15 [History] Calcitriol [Rocaltrol] 0.25 mcg PO BID 09/07/15 [History] Calcium Carbonate/Vitamin D3 [Calcium 500-Vit D3 400 Tablet] 1 each PO DAILY 11/15 [History] Cyanocobalamin (Vitamin B-12) [Vitamin B-12] 500 mcg SL DAILY 09/07/15 [History] Furosemide [Lasix] 40 mg PO DAILY 09/07/15 [History] Gabapentin [Neurontin] 600 mg PO HS 09/07/15 [History] Gluc/Samy-MSM#1/C/Heber/Slava/Bor [Osteo Bi-Flex Caplet] 1 each PO DAILY 09/07/15 [ History] Insulin Glargine [Lantus] 15 unit SQ QAM 09/07/15 [History] Propafenone [Rhythmol] 150 mg PO BID 09/07/15 [History] Sodium Bicarbonate 325 mg PO BID 09/07/15 [History] Warfarin [Coumadin] 2.5 mg PO SUTUWETHFRSA 09/07/15 [History] Warfarin [Coumadin] 5 mg PO MO 09/07/15 [History] clonazePAM [Klonopin] 0.5 mg PO HS 09/07/15 [History] Calcium Acetate 667 mg PO TID 04/13/17 [History] Cilostazol [Pletal] 100 mg PO BID 04/13/17 [History] Multivitamin [One Daily Essential] 1 tab PO DAILY 04/13/17 [History] 3 Allergy/AdvReac Type Severity Reaction Status Date / Time Sulfa (Sulfonamide Allergy Rash Verified 04/20/17 12:13 Antibiotics) Review of Systems ROS unobtainable: due to mental status (Patient slightly somnelent and unable to participate fully in ROS) Exam - Vital Signs Vital signs: Initial Vital Signs Temp Pulse Resp BP Pulse Ox 98.1 F 93 20 188/82 94 04/20/17 12:10 04/20/17 12:10 04/20/17 12:10 04/20/17 12:10 04/20/17 12:10 Vital Signs - Last 8 Hours Temp Pulse Resp BP Pulse Ox 04/21/17 07:16 97.6 F 76 16 156/91 93 04/21/17 04:52 97.7 F 85 16 136/60 95 Intake and Output 04/20/17 04/21/17 04/21/17 23:59 07:59 15:59 Output Total 700 / 700 0 / 0 Balance -700 / -700 0 / 0 Output: Urine 700 / 700 0 / 0 Other: Meal NPO # Voids 1 Weight 107.19 kg Blood Glucose* 151 188 Patient Weight 04/21/17 23:59 Weight 107.19 kg - General Appearance General appearance: well-developed, well-nourished, appears started age EENT: ATNC, PERRL, mucous membranes moist Neck: supple Respiratory: clear Cardiology: no murmurs, no rub, no gallops, edema (Trace bilateral lower extremity.), regular rate, regular rhythm - Dialysis Access Dialysis Vascular Access: Arteriovenous Fistula (L UE) thrill: No bruit: No Gastrointestinal: normoactive bowel sounds, no tenderness, no guarding, no masses Integumentary: no rash, cool/clammy Additional Comments: Left upper extremity is cool to touch distally with edema and erythema present. There is a surgical incision at 2 sites in the left upper extremity. No drainage noted. Pulses in the left upper extremity were unable to be palpated but this is due to pain while attempting to palpate a radial pulse. Capillary refills less than 2 seconds. No cyanosis present. Neurologic: no focal deficit, alert and oriented x3 Additional Comments: Slightly somnolent. Responds to questions appropriately. Musculoskeletal: no deformities, erythema, no cyanosis Results - Lab Results 04/21/17 05:27 04/21/17 04:06 Most recent lab results Calcium 8.2 mg/dL (8.6-10.3) L 04/21/17 04:06 Magnesium 1.8 mg/dL (1.6-2.6) 04/21/17 04:06 Consult Discharge Plan - Plan Referrals: Jace Will DO [Primary Care Provider] -
[2017-04-21] MEDS ORDERED: 0.9 % Sodium Chloride 500 ML ONE ×2 (11:56→12:51)
--- NOTE | 2017-04-21 12:41 | Internal Med Progress Note ---
Date of Encounter: 04/21/17 Time of Encounter: 12:39 - Assessment and plan (1) Complication of AV dialysis fistula Current Visit: Yes Status: Acute Assessment and plan: s/p AVF formation on 04/13/[address] Ambrose. Now with swelling, pain and ecchymosis to left arm; appears cellulitic with warmth, tenderness and drainage. Start Vanco, cefepime. Left upper extremity arterial, venous Dopplers pending. Dr. Ambrose consulted. Cautious pain management with renal disease. Qualifiers: Encounter type: initial encounter Qualified Code(s): T82.9XXA - Unspecified complication of cardiac and vascular prosthetic device, implant and graft, initial encounter (2) Chronic kidney disease, stage V Current Visit: Yes Status: Chronic Assessment and plan: per hx. non-oliguric. Follows with Nephrology. Had recent AV fistula as noted above. Now with worsening renal function. Plan to place temporary HD catheter with HD initiation on 04/22. Holding Coumadin, ASA. NPO at midnight. IR consulted for temporary HD catheter placement. Nephrology following. (3) Atrial fibrillation Current Visit: Yes Status: Chronic Assessment and plan: hx PAF. Rate controlled. Continue home propafenone. Resume Coumadin when able Qualifiers: Atrial fibrillation type: paroxysmal Qualified Code(s): I48.0 - Paroxysmal atrial fibrillation (4) CAD (coronary artery disease) Current Visit: Yes Status: Chronic Assessment and plan: per hx. Denies CP. Cont home statin. Resume ASA, Coumadin when able Qualifiers: Coronary Disease-Associated Artery/Lesion type: unspecified vessel or lesion type Associated angina: without angina Qualified Code(s): I25.10 - Atherosclerotic heart disease of [place] coronary artery without angina pectoris (5) Diabetes Current Visit: Yes Status: Chronic Assessment and plan: per hx. blood sugars variable but acceptable. Continue home long-acting, add SSRI. Monitor blood sugar and titrate PRN Qualifiers: Diabetes mellitus type: type 2 Diabetes mellitus complication status: without complication Diabetes mellitus shelter insulin use: with long term care administrator use Qualified Code(s): E11.9 - Type 2 diabetes mellitus without complications ; Z79.4 - skilled nursing (current) use of insulin; Z79.4 - continuous churn buttermaker (current) use of insulin; Z79.4 - continuous churn buttermaker (current) use of insulin; Z79.4 - continuous churn buttermaker ( current) use of insulin (6) PVD (peripheral vascular disease) Current Visit: Yes Status: Acute Assessment and plan: per hx. Cont home Pletal. Resume ASA when able (7) DVT prophylaxis Current Visit: Yes Status: Acute Assessment and plan: SCDs. Resume Coumadin when able - Time Spent With Patient 25 - 35 minutes - Subjective Interval history: Seen and examined at bedside. Patient is new to me. Information obtained from chart review and patient report. He complains of 10 on a 10 left arm pain. Worse with dressing changes. PRN IV Dilaudid helps take the edge off. - Constitutional Vitals: Temp Pulse Resp BP Pulse Ox 98.0 F 75 16 135/63 92 04/21/17 10:42 04/21/17 10:42 04/21/17 10:42 04/21/17 10:42 04/21/17 10:42 General appearance: Present: cooperative, A&O X 3, morbidly obese, pleasant, obese, answers questions appropriately - Head Head exam: Present: atraumatic, normocephalic - Eye Eye exam: Present: PERRL, conjuntiva pink, sclera anicteric Pupils: Present: PERRL - Neck Neck exam general surgery: Present: supple, trachea midline. Absent: lymphadenopathy - Respiratory Respiratory exam: Present: CTAB. Absent: accessory muscle use, rales, rhonchi, wheezes - Cardiovascular Cardiovascular exam: Present: RRR, +S1, +S2. Absent: diastolic murmur, gallop, rubs, systolic murmur - GI/Abdominal GI/Abdominal exam: Present: normal bowel sounds, soft, no peritoneal signs. Absent: distended, tenderness - Extremities Exam Extremities exam: Present: joint swelling, tenderness, warm, radial pulses palpable and symmetrical. Absent: calf tenderness, cyanotic, pedal edema Additional comments: Left arm grossly edematous with ecchymosis and tenderness. Serous drainage from wrist incision. - Neurological Exam Neurological exam: Present: CN II-XII intact, oriented X3, no focal deficits. Absent: pronater drift, facial droop, speech deficit - Skin Skin exam: Present: dry, intact Internal Medicine: Result - Labs CBC & Chem 7: 04/21/17 05:27 04/21/17 04:06 Labs: Short CBC 04/21/17 Range/Units 05:27 WBC 8.0 (4.3-11.1) K/mcL Hgb 9.2 L (12.9-16.9) g/dL Hct 29.9 L (37.5-50.1) % Plt Count 221 (140-400) K/mcL Neutrophils # 5.7 (1.6-8.9) K/mcL BMP 04/21/17 04:06 Sodium 136 Potassium 4.6 Chloride 110 H Carbon Dioxide 11 L BUN 121 H Creatinine 6.28 H Glucose 218 H Calcium 8.2 L Liver Function 04/21/17 Range/Units 04:06 Total Bilirubin 0.6 (0.3-1.0) mg/dL AST 19 (13-39) Units/L ALT 5 L (7-52) Units/L Alkaline Phosphatase 135 H (34-104) Units/L Albumin 3.3 L (3.5-5.7) g/dL - ABG Interpretation ABG results: PT/INR, D-dimer PT 16.2 Seconds (9.4-12.1) H 04/21/17 04:06 Consult Discharge Plan - Plan Referrals: Jace Will DO [Primary Care Provider] -
[2017-04-21] MEDS ORDERED: *HR* FentaNYL (PF) 100 MCG/2 ML VIAL IVP ONE (12:47)
[2017-04-21] MEDS ORDERED: Vancomycin 1,500 MG in D5% in Water 250 ML IVPB SCH (13:00)
[2017-04-21] MEDS ORDERED: Cefepime HCl 1,000 MG in Water for inj. (sterile) 10 ML IVPB SCH (13:00)
[2017-04-21] MEDS ORDERED: *HR* Heparin 5,000 UNIT/ML VIAL ONE (13:06)
--- NOTE | 2017-04-21 13:20 | Vascular/Endovasc Consult Note ---
Date of Encounter: 04/22/17 Time of Encounter: 08:00 Assessment and Plan (1) Cellulitis Current Visit: Yes Status: Acute Patient has developed significant cellulitis of the left forearm following creation of his left antecubital AV fistula last week. I agree with the patient being admitted and placed on intravenous antibiotics. I also recommended that the patient keep the left upper extremity elevated so that the elbow and the wrist will be higher than the level of the heart. Qualifiers: Site of cellulitis: extremity Site of cellulitis of extremity: upper extremity Laterality: left Qualified Code(s): L03.114 - Cellulitis of left upper limb (2) Pain and swelling of left upper extremity Current Visit: Yes Status: Acute Patient has pain and swelling secondary to left upper extremity cellulitis. Venous scan was negative for DVT in the central venous system. Patient is undergoing intravenous antibiotic treatment as well as elevation to control his left upper extremity symptoms. (3) ESRD (end stage renal disease) Current Visit: Yes Status: Chronic Patient has worsening of his renal status. A temporary hemodialysis catheter was placed with intention for initiating dialysis tomorrow. - History of Present Illness Consult date: 04/21/17 Consult reason: Left arm pain and swelling Chief complaint: Left arm pain and swelling History of present illness: Mr. Nicole is a 76 year old male admitted from the emergency room yesterday with left upper extremity symptoms. He states that about 1 day after his surgery on April 13 he developed discomfort in the left upper extremity with swelling. The swelling involved the left fingers, hand, and forearm and upper arm. He denies any trauma or manipulation to the arm outside of what occurred with his surgical procedure. He states that the discomfort and swelling or worsening and he sought medical attention yesterday afternoon. He had undergone surgery on April 13 with creation of a left antecubital arteriovenous fistula. Initially the radial artery was explored at the wrist but was found to be a small and severely calcified vessel. This was endarterectomized and patched but flow through this vessel was very minimal. The ulnar artery was patent. At the conclusion of surgery the patient was documented to have a biphasic ulnar signal at the wrist. Past Med Surg Social Fam HX - Past Medical History Medical history: atrial fibrillation, COPD, coronary artery disease, diabetes, GERD, hyperlipidemia, hypertension, myocardial infarction, other Psychiatric history: no psych history, anxiety - Past Surgical History Surgical History: bariatric surgery, cholecystectomy, pacemaker/AICD, other - Social History Smoking Status: Former smoker Packs per day: 4 PPD - Reports quitting 22 years ago Smokeless Tobacco Status: No Alcohol use: none Drug use: none - Family History Mother Race: Family Member Ethnicity: Non- Living Status: Age at : 70 Cause of : CA Hx Family Cardiac Disorders: Yes (CA, HTN) Hx Family Endocrine Disorder: Yes (DM) Brother Race: Family Member Ethnicity: Non- Living Status: Age at : 70 Cause of : Fall w/injury to head Sister Race: Family Member Ethnicity: Non- Living Status: Still Living Hx Family Endocrine Disorder: Yes (DM) Father History Unknown: Yes Race: Family Member Ethnicity: Non- Living Status: Age at : 55 Cause of : Stroke Hx Family Cardiac Disorders: Yes (Stroke) Hx Family Respiratory Disorders: No Hx Family Cancer: No Hx Family GI Disorders: No Hx Family Endocrine Disorder: No Hx Family Neuromuscular Disorders: No Hx Family Neurologic Disorders: No Hx Family HEENT Disorders: No Hx Family Autoimmune Disorders: No Medications and Allergies Aspirin 81 mg PO DAILY 09/07/15 [History] Atorvastatin [Lipitor] 40 mg PO DAILY 09/07/15 [History] Calcitriol [Rocaltrol] 0.25 mcg PO BID 09/07/15 [History] Calcium Carbonate/Vitamin D3 [Calcium 500-Vit D3 400 Tablet] 1 each PO DAILY 11/15 [History] Cyanocobalamin (Vitamin B-12) [Vitamin B-12] 500 mcg SL DAILY 09/07/15 [History] Furosemide [Lasix] 40 mg PO DAILY 09/07/15 [History] Gabapentin [Neurontin] 600 mg PO HS 09/07/15 [History] Gluc/Samy-MSM#1/C/Heber/Slava/Bor [Osteo Bi-Flex Caplet] 1 each PO DAILY 09/07/15 [ History] Insulin Glargine [Lantus] 15 unit SQ QAM 09/07/15 [History] Propafenone [Rhythmol] 150 mg PO BID 09/07/15 [History] Sodium Bicarbonate 325 mg PO BID 09/07/15 [History] Warfarin [Coumadin] 2.5 mg PO SUTUWETHFRSA 09/07/15 [History] Warfarin [Coumadin] 5 mg PO MO 09/07/15 [History] clonazePAM [Klonopin] 0.5 mg PO HS 09/07/15 [History] Calcium Acetate 667 mg PO TID 04/13/17 [History] Cilostazol [Pletal] 100 mg PO BID 04/13/17 [History] Multivitamin [One Daily Essential] 1 tab PO DAILY 04/13/17 [History] 3 Allergy/AdvReac Type Severity Reaction Status Date / Time Sulfa (Sulfonamide Allergy Rash Verified 04/20/17 12:13 Antibiotics) All Systems Review: A 10-system review of systems was performed and is negative for pertinent findings except as documented above in the HPI. Exam Vital Signs, Last 4 Hours Temp Pulse Resp BP Pulse Ox 04/21/17 10:42 98.0 F 75 16 135/63 92 General: Present: Conversant HEENT: Present: Atraumatic, Normocephaly Neck: Absent: JVD Cardiac: Present: Reg Rate and Rhythm Lungs: Present: Normal Breath Sounds Neuro: Present: Alert and responsive. Absent: No focal deficits noted ( Decreased range of motion of left upper extremity due to swelling and pain on minimal manipulation.) Abdomen: Present: Soft, Non-tender Vascular: Present: Edema (Patient has edema of the left upper extremity extending from the fingers into the upper third of the upper arm region. There is skin discoloration on the ventral lateral aspect of the forearm. The patient has tenderness to manipulation of the hand and forearm and upper arm region. The AV fistula is patent by Doppler but the patient is tender to manipulation I palpation over the area so I was unable to feel a thrill though the patient had an excellent thrill at the time of the creation of the AV fistula.) Consult Discharge Plan - Plan Referrals: Jace Will DO [Primary Care Provider] -
--- NOTE | 2017-04-21 13:23 | IR Procedure Note ---
Date of procedure: 04/21/17 Consent Obtained: Written consent Timeout: Correct patient and procedure verified, Time out performed, Skin prep completed Local anesthetic: Lidocaine 1% Indications: Acute on chronic renal failure Procedure Performed: Temp dialysis catheter placement Results/Findings: RIJ 15.5 fr 20 cm temp dialysis catheter placement Complications: None; Tolerated procedure well (Monitor on floor)
[2017-04-21] MEDS ORDERED: Vancomycin 1,500 MG in D5% in Water 250 ML IVPB ONE (14:00)
[2017-04-21] MEDS: *HR* HYDROcodone/Acet 5/325 mg TABLET PO PRN (14:11)
[2017-04-21] MEDS: clonazePAM 0.5 MG TABLET PO SCH (21:33)
[2017-04-21] MEDS: Gabapentin 300 MG CAPSULE PO SCH (21:33)
[2017-04-22 05:51] LABS: Basophils # 0.1 K/mcL (0.0-0.2); Basophils % 0.7 %; Eosinophils # 0.1 K/mcL (0.0-0.6); Eosinophils % 0.9 %; Hematocrit 29.2 % (37.5-50.1); Immature Granulocytes % 1.3 % (0-4); Lymphocytes # 0.8 K/mcL (0.6-4.6); Mean Corpuscular HGB Conc 30.8 g/dL (31.6-35.5); Mean Corpuscular Hemoglobin 31.4 pg (28.0-33.3); Mean Corpuscular Volume 101.7 fL (83.0-100.0); Mean Platelet Volume 10.7 fL (9.4-12.4); Monocytes # 0.9 K/mcL (0.0-1.3); Monocytes % 10.6 %; Neutrophils # 6.8 K/mcL (1.6-8.9); Nucleated Red Blood Cells 0.3 /100 WBC (0); Platelet Count 223 K/mcL (140-400); Red Blood Count 2.87 M/mcL (4.19-5.50); Red Cell Distribution Width 14.6 % (11.5-14.5); Segmented Neutrophils % 77.5 %
[2017-04-22] MEDS ORDERED: 0.9 % Sodium Chloride 250 ML IVC PRN (06:27)
[2017-04-22] MEDS: *HR* HYDROmorphone (PF) 1 MG/ML SYRINGE IVP PRN ×3 (08:10→20:52)
--- NOTE | 2017-04-22 09:03 | Nephrology Progress Note ---
Date of Encounter: 04/22/17 Time of Encounter: 09:01 - Assessment and Plan (1) ESRD (end stage renal disease) Current Visit: Yes Status: Chronic Stage V chronic kidney disease progressed to end-stage renal disease requiring dialysis, secondary to DM, HTN. Patient had temporary hemodialysis catheter placed yesterday and hemodialysis was initiated today. Today's date 1 of 3 consecutive treatments to initiate hemodialysis. We hope to have a tunneled permacath placed yesterday however the patient was on aspirin and cilostazol and this was required to be held for 2 days before permacath could be placed there for a temporary hemodialysis line was placed and aspirin and cilostazol was held with the anticipation of placement of an tunneled HD catheter tomorrow by interventional radiology. NPO at midnight for planned procedure. Given the patient's edema patient may have complications including steel syndrome or central vein stenosis. Will discuss with vascular surgery regarding any further workup to evaluate proper flow through his developing fistula. Anemia: Slightly worse today at 9.0, likely related to anemia of chronic kidney disease. No evidence of active bleeding. Hemoglobin is below goal of 10-11 for anemia of chronic kidney disease therefore we will start Aranesp 40 g weekly. Recent Iron studies in January show an Iron level of 33 and 12%, will recheck in the morning, if still low patient may benefit from IV iron infusion. As for the patient's chronic metabolic acidosis, this should improve with the initiation of dialysis, therefore will stop oral sodium bicarbonate. Patient's left upper extremity erythema and edema looks improved today. I am not convinced there is a clear cellulitis present, we would recommend narrowing antibiotic coverage with the hopes of discontinuing vancomycin due to potential nephrotoxicity. Continue a nephro protective strategy by avoiding nephrotoxins, dosing medications by GFR, and avoiding IV contrast if able. (2) Complication of AV dialysis fistula Current Visit: Yes Status: Acute Qualifiers: Encounter type: initial encounter Qualified Code(s): T82.9XXA - Unspecified complication of cardiac and vascular prosthetic device, implant and graft, initial encounter (3) Atrial fibrillation Current Visit: Yes Status: Chronic Qualifiers: Atrial fibrillation type: paroxysmal Qualified Code(s): I48.0 - Paroxysmal atrial fibrillation (4) Diabetes Current Visit: Yes Status: Chronic Qualifiers: Diabetes mellitus type: type 2 Diabetes mellitus complication status: without complication Diabetes mellitus superintendent marine oil terminal insulin use: with superintendent marine oil terminal use Qualified Code(s): E11.9 - Type 2 diabetes mellitus without complications ; Z79.4 - nursing home (current) use of insulin; Z79.4 - nursing home (current) use of insulin; Z79.4 - buttermaker (current) use of insulin; Z79.4 - buttermaker ( current) use of insulin (5) HTN (hypertension) Current Visit: Yes Status: Chronic Qualifiers: Hypertension type: essential hypertension Qualified Code(s): I10 - Essential (primary) hypertension (6) CAD (coronary artery disease) Current Visit: Yes Status: Chronic Qualifiers: Coronary Disease-Associated Artery/Lesion type: unspecified vessel or lesion type [place] vs. transplanted heart: [place] heart Associated angina: without angina Qualified Code(s): I25.10 - Atherosclerotic heart disease of [place] coronary artery without angina pectoris Subjective Principal diagnosis: LUE swelling Interval history: Patient seen and examined in dialysis. Patient states that he feels okay today. He states the pain in his left arm is slightly better. He is somewhat sleepy due to recently receiving pain medication. He is currently receiving hemodialysis treatment and is tolerating it well. He denies uremic symptoms such as loss of appetite, nausea, vomiting, confusion. Objective - Vital Signs Vital signs: Vital Signs Temp Pulse Resp BP Pulse Ox 04/22/17 06:39 98.5 F 87 14 152/90 90 04/22/17 04:27 97.9 F 112 16 112/60 94 04/21/17 23:12 97.6 F 92 16 115/41 91 04/21/17 20:30 91 04/21/17 19:23 97.6 F 83 18 116/42 91 04/21/17 14:14 97.5 F L 71 14 165/75 90 Intake and Output 04/21/17 04/22/17 04/22/17 23:59 07:59 15:59 Intake Total 0 / 0 0 / 0 Output Total 600 / 600 300 / 300 Balance -600 / -600 -300 / -300 Intake: Oral 0 / 0 0 / 0 Output: Urine 600 / 600 300 / 300 Other: Weight 107.19 kg Blood Glucose* 303 199 Patient Weight 04/22/17 23:59 Weight 107.19 kg - General Appearance General appearance: Present: well-developed, well-nourished, appears started age EENT: Present: ATNC, PERRL, mucous membranes moist Neck: Present: supple Respiratory: Present: clear Cardiology: Present: no murmurs, no rub, no gallops, rapid rhythm, irregular rhythm Dialysis Vascular Access: Arteriovenous Fistula (Left antecubital area) thrill: Yes bruit: Yes Gastrointestinal: Present: normoactive bowel sounds, no tenderness, no guarding Integumentary: Present: warm and dry, erythema Additional Comments: Left upper extremity: Extremity is edematous and erythematous to the area above the elbow. Exquisitely tender to touch. Appears improved from yesterday. Neurologic: Present: no focal deficit, alert and oriented x3 Musculoskeletal: Present: no cyanosis, no clubbing - Lab 04/22/17 03:40 04/22/17 03:40 Most recent lab results Calcium 8.2 mg/dL (8.6-10.3) L 04/21/17 04:06 Magnesium 1.8 mg/dL (1.6-2.6) 04/21/17 04:06 Consult Discharge Plan - Plan Referrals: Jace Will DO [Primary Care Provider] -
[2017-04-22 09:12] LABS: Albumin 3.4 g/dL (3.5-5.7); Albumin/Globulin Ratio 1.1 (1.1-2.2); Bilirubin,Total 0.5 mg/dL (0.3-1.0); Calcium 8.6 mg/dL (8.6-10.3); Potassium 4.8 mEq/L (3.5-5.1); Total Protein 6.4 g/dL (6.4-8.9)
--- NOTE | 2017-04-22 10:26 | Internal Med Progress Note ---
Date of Encounter: 04/22/17 Time of Encounter: 10:30 - Assessment and plan (1) ESRD (end stage renal disease) Current Visit: Yes Status: Chronic Assessment and plan: Nephrology is following and initiating HD today. Appreciate their help. (2) Cellulitis Current Visit: Yes Status: Acute Assessment and plan: I have changed his antibiotic to ceftriaxone. Stop vancomycin cefepime. Qualifiers: Site of cellulitis: extremity Site of cellulitis of extremity: upper extremity Laterality: left Qualified Code(s): L03.114 - Cellulitis of left upper limb (3) Diabetes Current Visit: Yes Status: Chronic Assessment and plan: per hx. blood sugars 199 this morning. He is injuring up and down as low as 60 point. Continue Levemir 15 units and insulin sliding scale. Continue with Accu -Cheks. Qualifiers: Diabetes mellitus type: type 2 Diabetes mellitus complication status: without complication Diabetes mellitus custodial insulin use: with custodial use Qualified Code(s): E11.9 - Type 2 diabetes mellitus without complications ; Z79.4 - long term care administrator (current) use of insulin; Z79.4 - long term care administrator (current) use of insulin; Z79.4 - long term care administrator (current) use of insulin; Z79.4 - long term care administrator ( current) use of insulin (4) HTN (hypertension) Current Visit: Yes Status: Chronic Assessment and plan: Blood pressure stable. lasix Qualifiers: Hypertension type: essential hypertension Qualified Code(s): I10 - Essential (primary) hypertension (5) Atrial fibrillation Current Visit: Yes Status: Chronic Assessment and plan: hx PAF. Rate controlled. Continue home propafenone. Resume Coumadin when able Qualifiers: Atrial fibrillation type: paroxysmal Qualified Code(s): I48.0 - Paroxysmal atrial fibrillation (6) DVT prophylaxis Current Visit: Yes Status: Acute Assessment and plan: SCDs. Resume Coumadin when able - Subjective Interval history: No acute events. The patient was seen and examined. He is to start dialysis today through a temporary catheter. Plans for tunneled HD catheter tomorrow. He is afebrile complaints. - Constitutional Vitals: Temp Pulse Resp BP Pulse Ox 97.9 F 87 19 122/46 90 04/22/17 08:30 04/22/17 06:39 04/22/17 08:30 04/22/17 10:15 04/22/17 06:39 General appearance: Present: cooperative, A&O X 3, morbidly obese, pleasant, obese, answers questions appropriately Exam: GEN: NAD CVS: RRR. S1, S2, No m/r/g RESP: CTAB ABD: Soft, NT, ND, +BS EXT: Left upper extremity is noted with edema and erythema. Area is tender to palpation.. 2+ DP, NEURO: Nonfocal Internal Medicine: Result - Labs CBC & Chem 7: 04/22/17 03:40 04/22/17 03:40 Labs: Short CBC 04/22/17 Range/Units 03:40 WBC 8.8 (4.3-11.1) K/mcL Hgb 9.0 L (12.9-16.9) g/dL Hct 29.2 L (37.5-50.1) % Plt Count 223 (140-400) K/mcL Neutrophils # 6.8 (1.6-8.9) K/mcL BMP 04/22/17 03:40 Sodium 139 Potassium 4.8 Chloride 109 H Carbon Dioxide 13 L BUN 124 H Creatinine 7.12 H Glucose 186 H Calcium 8.6 Liver Function 04/22/17 Range/Units 03:40 Total Bilirubin 0.5 (0.3-1.0) mg/dL AST 18 (13-39) Units/L ALT 7 (7-52) Units/L Alkaline Phosphatase 127 H (34-104) Units/L Albumin 3.4 L (3.5-5.7) g/dL - ABG Interpretation ABG results: PT/INR, D-dimer PT 16.2 Seconds (9.4-12.1) H 04/21/17 04:06 Consult Discharge Plan - Plan Referrals: Jace Will DO [Primary Care Provider] -
[2017-04-22 12:09] LABS: Hepatitis B Surface Antigen Nonreactive (Nonreactive)
[2017-04-22] MEDS: Furosemide 40 MG TABLET PO SCH (12:11)
[2017-04-22] MEDS: Multivit/Ca/Min/Fe/FA 1 TAB TABLET PO SCH (12:11)
[2017-04-22] MEDS: Calcium Acetate 667 MG CAPSULE PO SCH ×3 (12:11→17:11)
[2017-04-22] MEDS: Cyanocobalamin (B-12) 1,000 MCG TABLET PO SCH (12:11)
[2017-04-22] MEDS: Insulin LISPRO 300 UNITS/3 ML VIAL SQ SCH ×4 (12:49→20:43)
[2017-04-22] MEDS ORDERED: Aminoglycoside Consult 1 EACH MC ONE (13:47)
[2017-04-22] MEDS: Insulin DETEMIR 100 UNIT/ML X5UNITS SQ SCH (15:00)
--- NOTE | 2017-04-22 16:24 | Vascular/Endovas Progress Note ---
Date of Encounter: 04/22/17 Time of Encounter: 16:15 - Assessment and plan (1) Cellulitis Current Visit: Yes Status: Acute Patient has developed significant cellulitis of the left forearm following creation of his left antecubital AV fistula last week. I agree with the patient being admitted and placed on intravenous antibiotics. I also recommended that the patient keep the left upper extremity elevated so that the elbow and the wrist will be higher than the level of the heart. The patient's edema is less on my examination afternoon. The patient's erythema at the elbow area is essentially the same. The induration of the tissue around the elbow is less than yesterday. The patient's arm was lying flat in bed and so I elevated it again on a pillow as noted above. Qualifiers: Site of cellulitis: extremity Site of cellulitis of extremity: upper extremity Laterality: left Qualified Code(s): L03.114 - Cellulitis of left upper limb (2) Pain and swelling of left upper extremity Current Visit: Yes Status: Acute Patient has pain and swelling secondary to left upper extremity cellulitis. Venous scan was negative for DVT in the central venous system. Patient is undergoing intravenous antibiotic treatment as well as elevation to control his left upper extremity symptoms. (3) ESRD (end stage renal disease) Current Visit: Yes Status: Chronic Patient has worsening of his renal status. A temporary hemodialysis catheter was placed with intention for initiating dialysis tomorrow. - Subjective Interval history: Patient is seen in his room as he is now onto a period he had had his first treatment with hemodialysis today. He is very exhausted and is lying in a diagonal fashion across his bed. He offers very little verbal stimuli and appears sleeping. His is at his bedside and I discussed with her primarily the patient's situation. Vital Signs, Last 4 Hours Temp Pulse Resp BP Pulse Ox 04/22/17 16:03 97.3 F L 87 13 181/51 93 - Physical Examination General: Present: Other (Patient is sleeping) Vascular: Present: Other (Left upper extremity edema is significantly less at the finger and hand level. The edema at the left elbow and upper arm level is approximately the same though the swelling is softer and less rigid. There is no exacerbation of the erythema. The fingers are cool. There is a dressing on his left forearm. He has a temporary hemodialysis catheter in the right internal jugular vein.) Results 04/22/17 03:40 04/22/17 03:40 Lab Results, Last 24 hours 04/22/17 04/22/17 03:40 03:40 WBC 8.8 Hgb 9.0 L Hct 29.2 L Plt Count 223 Sodium 139 Potassium 4.8 Chloride 109 H Carbon Dioxide 13 L BUN 124 H Creatinine 7.12 H Glucose 186 H Calcium 8.6 Total Bilirubin 0.5 AST 18 ALT 7 Alkaline Phosphatase 127 H Consult Discharge Plan - Plan Referrals: Jace Will DO [Primary Care Provider] -
[2017-04-22] MEDS: cefTRIAXone 1,000 MG in Water for inj. (sterile) 10 ML IVP SCH (17:11)
[2017-04-22] MEDS: Gabapentin 300 MG CAPSULE PO SCH (20:43)
[2017-04-22] MEDS: clonazePAM 0.5 MG TABLET PO SCH (20:43)
[2017-04-23] MEDS: *HR* HYDROmorphone (PF) 1 MG/ML SYRINGE IVP PRN (04:26)
[2017-04-23 05:01] LABS: INR 1.3; Prothrombin Time 14.3 Seconds (9.4-12.1)
[2017-04-23 05:04] LABS: Albumin 3.3 g/dL (3.5-5.7); Albumin/Globulin Ratio 1.1 (1.1-2.2); Bilirubin,Total 0.6 mg/dL (0.3-1.0); Calcium 8.8 mg/dL (8.6-10.3); Globulin 3.1 g/dL (2.4-3.5); Potassium 3.9 mEq/L (3.5-5.1); Total Protein 6.4 g/dL (6.4-8.9)
[2017-04-23 05:06] LABS: Basophils # 0.1 K/mcL (0.0-0.2); Basophils % 0.9 %; Eosinophils # 0.2 K/mcL (0.0-0.6); Eosinophils % 2.8 %; Hemoglobin 9.7 g/dL (12.9-16.9); Immature Granulocytes % 0.2 % (0-4); Lymphocytes # 0.9 K/mcL (0.6-4.6); Lymphocytes % 10.2 %; Mean Corpuscular HGB Conc 30.3 g/dL (31.6-35.5); Mean Corpuscular Hemoglobin 30.4 pg (28.0-33.3); Mean Corpuscular Volume 100.3 fL (83.0-100.0); Mean Platelet Volume 10.3 fL (9.4-12.4); Neutrophils # 6.4 K/mcL (1.6-8.9); Platelet Count 222 K/mcL (140-400); Red Blood Count 3.19 M/mcL (4.19-5.50); Red Cell Distribution Width 14.6 % (11.5-14.5); Segmented Neutrophils % 73.9 %
[2017-04-23] MEDS ORDERED: 0.9 % Sodium Chloride 250 ML IVC PRN (06:42)
[2017-04-23] MEDS ORDERED: Heparin 1,000 UNITS/500 mL 500 ML ONE (07:19)
[2017-04-23] MEDS ORDERED: ceFAZolin 2,000 MG in Water for inj. (sterile) 20 ML IVP ONE (08:05)
[2017-04-23] MEDS ORDERED: *HR* Midazolam HCl 2 MG/2 ML VIAL IVP ONE (08:06)
[2017-04-23] MEDS ORDERED: *HR* FentaNYL (PF) 100 MCG/2 ML VIAL IVP ONE (08:07)
[2017-04-23] MEDS ORDERED: 0.9 % Sodium Chloride 500 ML ONE (08:21)
[2017-04-23] MEDS ORDERED: *HR* Midazolam HCl 2 MG/2 ML VIAL ONE (08:27)
[2017-04-23] MEDS ORDERED: *HR* FentaNYL (PF) 100 MCG/2 ML VIAL ONE (08:28)
--- NOTE | 2017-04-23 08:47 | IR Procedure Note ---
Date of procedure: 04/23/17 Consent Obtained: Written consent Timeout: Correct patient and procedure verified, Time out performed, Skin prep completed Local anesthetic: Lidocaine 1% Indications: CRF Procedure Performed: permacath placement Results/Findings: RIJ 14F 28 cm Alexys-Split TDC placement Complications: None; Tolerated procedure well (Monitor on floor)
[2017-04-23] MEDS ORDERED: CeFAZolin Premix DUPLEX 2,000 MG/50 ML BAG IVPB ONE (09:00)
[2017-04-23] MEDS ORDERED: cefTRIAXone 1,000 MG in Water for inj. (sterile) 10 ML IVP SCH (09:00)
[2017-04-23] MEDS: Insulin LISPRO 300 UNITS/3 ML VIAL SQ SCH ×4 (10:09→20:12)
[2017-04-23] MEDS: Calcium Acetate 667 MG CAPSULE PO SCH ×3 (10:09→17:05)
[2017-04-23] MEDS: *HR* OxyCODONE/APAP 10/325 TABLET PO PRN ×2 (10:58→17:05)
--- NOTE | 2017-04-23 12:04 | Internal Med Progress Note ---
Date of Encounter: 04/23/17 Time of Encounter: 11:55 - Assessment and plan (1) ESRD (end stage renal disease) Current Visit: Yes Status: Chronic Assessment and plan: Nephrology is following him dialyzed again this morning. Was dialyzed yesterday. Appreciate their help. (2) Cellulitis Current Visit: Yes Status: Acute Assessment and plan: continue with ceftriaxone. Stop vancomycin cefepime. Qualifiers: Site of cellulitis: extremity Site of cellulitis of extremity: upper extremity Laterality: left Qualified Code(s): L03.114 - Cellulitis of left upper limb (3) Diabetes Current Visit: Yes Status: Chronic Assessment and plan: Continue Levemir 15 units and insulin sliding scale. Continue with Accu- Cheks. Qualifiers: Diabetes mellitus type: type 2 Diabetes mellitus complication status: without complication Diabetes mellitus long-term insulin use: with long-term use Qualified Code(s): E11.9 - Type 2 diabetes mellitus without complications ; Z79.4 - intermediate (current) use of insulin; Z79.4 - terminal press operator (current) use of insulin; Z79.4 - terminal press operator (current) use of insulin; Z79.4 - terminal press operator ( current) use of insulin (4) HTN (hypertension) Current Visit: Yes Status: Chronic Assessment and plan: Blood pressure stable. On lasix Qualifiers: Hypertension type: essential hypertension Qualified Code(s): I10 - Essential (primary) hypertension (5) Atrial fibrillation Current Visit: Yes Status: Chronic Assessment and plan: hx PAF. Rate controlled. Continue home propafenone. Resume Coumadin as I do not think there is any more surgical procedures planned. Qualifiers: Atrial fibrillation type: paroxysmal Qualified Code(s): I48.0 - Paroxysmal atrial fibrillation (6) DVT prophylaxis Current Visit: Yes Status: Acute Assessment and plan: SCDs. We will resume Coumadin. - Subjective Interval history: No acute events. The patient went for permacath placement this morning. There is no complications. I saw the patient while he is in dialyzed. He feels tired otherwise has no complaints. He has been afebrile. - Constitutional Vitals: Temp Pulse Resp BP Pulse Ox 97.4 F L 111 18 125/97 94 04/23/17 09:35 04/23/17 08:40 04/23/17 09:35 04/23/17 11:20 04/23/17 08:40 General appearance: Present: cooperative, A&O X 3, morbidly obese, pleasant, obese, answers questions appropriately Exam: GEN: NAD CVS: RRR. S1, S2, No m/r/g RESP: CTAB ABD: Soft, NT, ND, +BS EXT: Left upper extremity is noted with edema and erythema. Area is tender to palpation.. 2+ DP, NEURO: Nonfocal Internal Medicine: Result - Labs CBC & Chem 7: 04/23/17 04:24 04/23/17 04:24 Labs: Short CBC 04/23/17 Range/Units 04:24 WBC 8.7 (4.3-11.1) K/mcL Hgb 9.7 L (12.9-16.9) g/dL Hct 32.0 L (37.5-50.1) % Plt Count 222 (140-400) K/mcL Neutrophils # 6.4 (1.6-8.9) K/mcL BMP 04/23/17 04:24 Sodium 142 Potassium 3.9 Chloride 106 Carbon Dioxide 24 BUN 96 H Creatinine 5.71 H Glucose 86 Calcium 8.8 Liver Function 04/23/17 Range/Units 04:24 Total Bilirubin 0.6 (0.3-1.0) mg/dL AST 19 (13-39) Units/L ALT 8 (7-52) Units/L Alkaline Phosphatase 128 H (34-104) Units/L Albumin 3.3 L (3.5-5.7) g/dL - ABG Interpretation ABG results: PT/INR, D-dimer PT 14.3 Seconds (9.4-12.1) H 04/23/17 04:24 Consult Discharge Plan - Plan Referrals: Jace Will DO [Primary Care Provider] -
[2017-04-23] MEDS ORDERED: 0.9 % Sodium Chloride 2,000 ML ONE (12:45)
[2017-04-23] MEDS: Insulin DETEMIR 100 UNIT/ML X5UNITS SQ SCH (13:41)
[2017-04-23] MEDS: Cyanocobalamin (B-12) 1,000 MCG TABLET PO SCH (13:42)
[2017-04-23] MEDS: Furosemide 40 MG TABLET PO SCH (13:42)
[2017-04-23] MEDS: Renal Vitamin 1 MG CAPSULE PO SCH (13:42)
[2017-04-23] MEDS: *HR* HYDROcodone/Acet 5/325 mg TABLET PO PRN ×2 (13:42→20:37)
--- NOTE | 2017-04-23 15:48 | Electrocardiograph Report ---
[address] [place] [address] Test Date: 2017-04-22 Pat Name: Pawan Nicole Department: 115 Room: 2A Gender: M Professor Of Voice: [id number] : 1940 Requested By: Tammy Gaytan Order Number: [id number] Reading MD: Shree Patrick DO Measurements Intervals [place] Rate: 85 P: 99 FL: 114 QRS: -3 QRSD: 142 T: -35 QT: 395 QTc: 438 Interpretive Statements SINUS RHYTHM RIGHT BUNDLE BRANCH BLOCK POSSIBLE ANTEROSEPTAL MYOCARDIAL INFARCTION, OF INDETERMINATE AGE POSSIBLE INFERIOR MYOCARDIAL INFARCTION, OF INDETERMINATE AGE Electronically Signed On 04-23-2017 15:47:11 EST by Shree Patrick DO
--- NOTE | 2017-04-23 16:37 | Vascular/Endovas Progress Note ---
Date of Encounter: 04/23/17 Time of Encounter: 16:35 - Assessment and plan (1) Cellulitis Current Visit: Yes Status: Acute Left upper extremity cellulitis is improving. Edema of the left upper extremity is improving. Increased range of motion of fingers and hand. No signs of extension of infection. Qualifiers: Site of cellulitis: extremity Site of cellulitis of extremity: upper extremity Laterality: left Qualified Code(s): L03.114 - Cellulitis of left upper limb (2) Pain and swelling of left upper extremity Current Visit: Yes Status: Acute Left upper extremity swelling is decreased at the hand and wrist area. Maximum swelling appears to be in the proximal forearm and distal upper arm. I would recommend continued treatment with elevation and occupational therapy for range of motion therapy as well. Once patient is stabilized on dialysis the patient may be discharged so he may require short-term extended care assistance. (3) ESRD (end stage renal disease) Current Visit: Yes Status: Chronic Patient had PermCath placed today via right internal jugular vein. Patient had second hemodialysis treatment today. From vascular surgery perspective patient may be discharged once dialysis stability has been achieved. - Subjective Interval history: P the patient was seen on to a period he is status post insertion of permanent hemodialysis catheter via the right internal jugular vein and is status post his second hemodialysis treatment earlier today. On his visit this afternoon he has no new complaints. He appears to be more awake and alert and talkative than he was yesterday. He has no new left upper extremity symptoms. Vital Signs, Last 4 Hours Temp Resp BP 04/23/17 12:36 98 F 20 138/89 - Physical Examination General: Present: Conversant, No Apparent Distress Vascular: Present: Other (The left upper extremity dressing was removed and the wound inspected and then a new clean dressing applied. The patient's left fingers and hand shows improvement with significant decrease in the edema. The greatest area of edema remains at the proximal forearm and lower upper arm region. The erythema is diminished. The patient does have areas of bleb formation which are intact and other areas with a bleb formation has spontaneously sloughed. The underlying tissue here is pain. There is no signs to suggest a compartment syndrome or necrotizing fasciitis. He has increased range of motion of his fingers and wrist but still not normal. He is receiving care from rehabilitative services to assist in his recovery for the left upper extremity.) Results 04/23/17 04:24 12/22/17 04:24 Lab Results, Last 24 hours 04/23/17 04/23/17 04/23/17 04:24 04:24 04:24 WBC 8.7 Hgb 9.7 L Hct 32.0 L Plt Count 222 INR 1.3 Sodium 142 Potassium 3.9 Chloride 106 Carbon Dioxide 24 BUN 96 H Creatinine 5.71 H Glucose 86 Calcium 8.8 Total Bilirubin 0.6 AST 19 ALT 8 Alkaline Phosphatase 128 H Consult Discharge Plan - Plan Referrals: Jace Will DO [Primary Care Provider] -
--- NOTE | 2017-04-23 16:37 | Nephrology Progress Note ---
Date of Encounter: 04/23/17 Time of Encounter: 10:35 - Assessment and Plan (1) Complication of AV dialysis fistula Current Visit: Yes Status: Acute Per vascular surgery. Qualifiers: Encounter type: initial encounter Qualified Code(s): T82.9XXA - Unspecified complication of cardiac and vascular prosthetic device, implant and graft, initial encounter (2) Diabetes Current Visit: Yes Status: Chronic Per primary team. Qualifiers: Diabetes mellitus type: type 2 Diabetes mellitus complication status: without complication Diabetes mellitus terminal carman insulin use: with terminal carman use Qualified Code(s): E11.9 - Type 2 diabetes mellitus without complications ; Z79.4 - director long term care (current) use of insulin; Z79.4 - director long term care (current) use of insulin; Z79.4 - alf (current) use of insulin; Z79.4 - director long term care ( current) use of insulin (3) ESRD (end stage renal disease) Current Visit: Yes Status: Chronic Patient on dialysis. Today is day 2. Plan to dialyze Wednesday. Renal dose medications. Renal diet. (4) HTN (hypertension) Current Visit: Yes Status: Chronic Goal blood pressure less than 130/80. Titrate antihypertensive medications as needed. Qualifiers: Hypertension type: essential hypertension Qualified Code(s): I10 - Essential (primary) hypertension Subjective Principal diagnosis: LUE swelling Interval history: Patient seen while on dialysis. He had no new complaint. Objective - Vital Signs Vital signs: Vital Signs Temp Pulse Resp BP Pulse Ox 04/23/17 12:36 98 F 20 138/89 04/23/17 12:05 121/72 04/23/17 11:50 129/74 04/23/17 11:35 122/80 04/23/17 11:20 125/97 04/23/17 11:05 169/86 04/23/17 10:50 145/81 04/23/17 10:35 176/90 04/23/17 10:20 120/76 04/23/17 10:05 178/68 04/23/17 09:50 163/73 04/23/17 09:35 97.4 F L 18 166/53 04/23/17 08:40 111 11 165/94 94 04/23/17 08:35 110 20 139/76 92 04/23/17 08:30 108 14 148/90 94 04/23/17 08:09 95 14 167/74 04/23/17 06:25 97.7 F 115 20 139/50 93 04/23/17 03:58 97.8 F 72 16 128/68 92 04/23/17 00:56 98.2 F 80 15 133/65 94 04/22/17 20:09 97.3 F L 87 17 166/76 90 Intake and Output 04/23/17 04/23/17 04/23/17 07:59 15:59 23:59 Intake Total 600 / 600 Output Total 3100 / 3100 Balance -2500 / -2500 Intake: Oral 0 / 0 Intake, Rinseback and Flushes 600 / 600 Output: Urine 0 / 0 Total Dialysis (HD) Output 3100 / 3100 Other: Weight 105.7 kg Blood Glucose* 111 105 Hemodialysis Net Fluid Removed 2500 (mL) Patient Weight 04/23/17 23:59 Weight 105.7 kg - General Appearance General appearance: Present: well-developed, well-nourished EENT: Present: ATNC Neck: Present: supple Respiratory: Present: clear (anteriorly) Dialysis Vascular Access: Venous Catheter Integumentary: Present: warm and dry Musculoskeletal: Present: no cyanosis Psychiatric: Present: mood/affect appropriate - Lab 04/23/17 04:24 04/23/17 04:24 Most recent lab results Calcium 8.8 mg/dL (8.6-10.3) 04/23/17 04:24 Magnesium 1.8 mg/dL (1.6-2.6) 04/21/17 04:06 Consult Discharge Plan - Plan Referrals: Jace Will DO [Primary Care Provider] -
[2017-04-23] MEDS: cefTRIAXone 1,000 MG in Water for inj. (sterile) 10 ML IVP SCH (17:05)
[2017-04-23] MEDS ORDERED: Warfarin perPT PO PRN (18:00)
[2017-04-23] MEDS ORDERED: *HR* Warfarin 5 MG TABLET PO ONE (18:00)
--- NOTE | 2017-04-23 18:10 | Electrocardiograph Report ---
[address] [address] Test Date: 2017-04-22 Pat Name: Pawan Nicole Department: 115 Room: [facility] Gender: M Va Underwriter: [id number] : [id number] Requested By: Tammy Gaytan Order Number: [id number] Reading MD: Joe Avery Measurements Intervals [place] Rate: 97 P: [place]: 0 QRS: -2 QRSD: 157 T: -36 QT: 380 QTc: 434 Interpretive Statements ELECTRONIC VENTRICULAR PACEMAKER ABNORMAL RHYTHM ECG Electronically Signed On 04-23-2017 18:09:00 EST by Joe Avery
[2017-04-23] MEDS: clonazePAM 0.5 MG TABLET PO SCH (20:13)
[2017-04-23] MEDS: Gabapentin 300 MG CAPSULE PO SCH (20:13)
[2017-04-23] MEDS: Calcium 500-Vit D3 PO SCH (22:24)
[2017-04-23] MEDS: OSTEO BI FLEX PO SCH (22:24)
[2017-04-23] MEDS: Multivit/Ca/Min/Fe/FA 1 TAB TABLET PO SCH (22:25)
[2017-04-24] MEDS: *HR* OxyCODONE/APAP 10/325 TABLET PO PRN ×2 (01:45→19:40)
[2017-04-24 04:50] LABS: Calcium 8.6 mg/dL (8.6-10.3); Potassium 4.3 mEq/L (3.5-5.1)
[2017-04-24 04:52] LABS: Basophils # 0.1 K/mcL (0.0-0.2); Basophils % 1.2 %; Eosinophils # 0.3 K/mcL (0.0-0.6); Eosinophils % 3.3 %; Hematocrit 29.8 % (37.5-50.1); Hemoglobin 9.1 g/dL (12.9-16.9); Immature Granulocytes % 0.5 % (0-4); Lymphocytes # 1.4 K/mcL (0.6-4.6); Lymphocytes % 15.6 %; Mean Corpuscular HGB Conc 30.5 g/dL (31.6-35.5); Mean Corpuscular Hemoglobin 30.5 pg (28.0-33.3); Mean Platelet Volume 10.7 fL (9.4-12.4); Monocytes # 1.1 K/mcL (0.0-1.3); Monocytes % 12.1 %; Neutrophils # 5.9 K/mcL (1.6-8.9); Platelet Count 212 K/mcL (140-400); Red Blood Count 2.98 M/mcL (4.19-5.50); Red Cell Distribution Width 14.5 % (11.5-14.5); Segmented Neutrophils % 67.3 %
[2017-04-24] MEDS: *HR* HYDROcodone/Acet 5/325 mg TABLET PO PRN ×2 (05:08→09:01)
--- NOTE | 2017-04-24 07:17 | Internal Med Progress Note ---
Date of Encounter: 04/24/17 Time of Encounter: 07:30 - Assessment and plan (1) ESRD (end stage renal disease) Current Visit: Yes Status: Chronic Assessment and plan: Nephrology is following him dialyzed again this morning for day 3. Appreciate their help. (2) Cellulitis Current Visit: Yes Status: Acute Assessment and plan: continue with ceftriaxone. Stopped vancomycin cefepime. Qualifiers: Site of cellulitis: extremity Site of cellulitis of extremity: upper extremity Laterality: left Qualified Code(s): L03.114 - Cellulitis of left upper limb (3) Diabetes Current Visit: Yes Status: Chronic Assessment and plan: Increase to 30 units of Levemir from 15 units and insulin sliding scale. Continue with Accu-Cheks. Qualifiers: Diabetes mellitus type: type 2 Diabetes mellitus complication status: without complication Diabetes mellitus buttermaker insulin use: with buttermaker use Qualified Code(s): E11.9 - Type 2 diabetes mellitus without complications ; Z79.4 - exterminator helper termite (current) use of insulin; Z79.4 - MCC (current) use of insulin; Z79.4 - MCC (current) use of insulin; Z79.4 - exterminator helper termite ( current) use of insulin (4) HTN (hypertension) Current Visit: Yes Status: Chronic Assessment and plan: Blood pressure stable. On lasix Qualifiers: Hypertension type: essential hypertension Qualified Code(s): I10 - Essential (primary) hypertension (5) Atrial fibrillation Current Visit: Yes Status: Chronic Assessment and plan: hx PAF. Rate controlled. Continue home propafenone. On Coumadin for anticoag Qualifiers: Atrial fibrillation type: paroxysmal Qualified Code(s): I48.0 - Paroxysmal atrial fibrillation (6) DVT prophylaxis Current Visit: Yes Status: Acute Assessment and plan: coumadin. - Subjective Interval history: No acute events. The patient was dialyzed yesterday with plans for HD this morning. He has been afebrile. - Constitutional Vitals: Temp Pulse Resp BP Pulse Ox 98.0 F 74 17 131/76 90 04/24/17 04:55 04/24/17 04:55 04/24/17 04:55 04/24/17 04:55 04/24/17 04:55 General appearance: Present: cooperative, A&O X 3, morbidly obese, pleasant, obese, answers questions appropriately Exam: GEN: NAD CVS: RRR. S1, S2, No m/r/g RESP: CTAB ABD: Soft, NT, ND, +BS EXT: Left upper extremity is noted with edema and erythema. Area is tender to palpation.. 2+ DP, NEURO: Nonfocal Internal Medicine: Result - Labs CBC & Chem 7: 04/24/17 03:55 04/24/17 03:55 Labs: Short CBC 04/24/17 Range/Units 03:55 WBC 8.7 (4.3-11.1) K/mcL Hgb 9.1 L (12.9-16.9) g/dL Hct 29.8 L (37.5-50.1) % Plt Count 212 (140-400) K/mcL Neutrophils # 5.9 (1.6-8.9) K/mcL BMP 04/24/17 03:55 Sodium 137 Potassium 4.3 Chloride 99 Carbon Dioxide 25 BUN 68 H Creatinine 4.83 H Glucose 171 H Calcium 8.6 - ABG Interpretation ABG results: PT/INR, D-dimer PT 14.3 Seconds (9.4-12.1) H 04/23/17 04:24 - Impressions Impressions Guidance Needle Placement Ultrasound 04/23/17 00:00 IMPRESSION: 1. Right internal jugular vein tunneled dialysis catheter placement as discussed above. D/ / Cesar Blanco MD / Cesar Blanco MD Interpreting Provider: Cesar Blanco MD Insertion Tunneled Catheter 04/23/17 00:00 IMPRESSION: 1. Right internal jugular vein tunneled dialysis catheter placement as discussed above. D/ / Cesar Blanco MD / Cesar Blanco MD Interpreting Provider: Cesar Blanco MD Consult Discharge Plan - Plan Referrals: Jace Will DO [Primary Care Provider] -
[2017-04-24] MEDS: Furosemide 40 MG TABLET PO SCH (07:43)
[2017-04-24] MEDS: Calcium Acetate 667 MG CAPSULE PO SCH ×3 (07:43→18:04)
[2017-04-24] MEDS: Renal Vitamin 1 MG CAPSULE PO SCH (07:43)
[2017-04-24] MEDS: Insulin LISPRO 300 UNITS/3 ML VIAL SQ SCH ×4 (07:43→21:28)
[2017-04-24] MEDS: Cyanocobalamin (B-12) 1,000 MCG TABLET PO SCH (07:43)
[2017-04-24] MEDS ORDERED: 0.9 % Sodium Chloride 250 ML IVC PRN (08:49)
[2017-04-24] MEDS ORDERED: 0.9 % Sodium Chloride 1,000 ML PRIME SCH (09:00)
--- NOTE | 2017-04-24 09:23 | Vascular/Endovas Progress Note ---
Date of Encounter: 04/24/17 Time of Encounter: 09:19 - Assessment and plan (1) Cellulitis Current Visit: Yes Status: Acute Left upper extremity cellulitis continues to slowly improve. The patient has more spontaneous movement of the arm and hand and fingers. I recommended that the patient continue on elevation therapy, dressing changes, antibiotics, and occupational therapy for the left upper extremity. I will remain available as requested for this patient. Please let me know if I can be of any further assistance. Qualifiers: Site of cellulitis: extremity Site of cellulitis of extremity: upper extremity Laterality: left Qualified Code(s): L03.114 - Cellulitis of left upper limb (2) Pain and swelling of left upper extremity Current Visit: Yes Status: Acute Left upper extremity swelling is decreased at the hand and wrist area. Maximum swelling appears to be in the proximal forearm and distal upper arm. I would recommend continued treatment with elevation and occupational therapy for range of motion therapy as well. Once patient is stabilized on dialysis the patient may be discharged so he may require short-term extended care assistance. (3) ESRD (end stage renal disease) Current Visit: Yes Status: Chronic Patient had PermCath placed Wednesday a.m. via right internal jugular vein. From vascular surgery perspective patient may be discharged/Rehab transfer once dialysis stability has been achieved. - Subjective Interval history: Patient is sleeping onto a on my visit. He is easily aroused. He has no new complaints. He denies any issues overnight. He is tentatively scheduled for dialysis again today. Vital Signs, Last 4 Hours Temp Pulse Resp BP Pulse Ox 04/24/17 07:17 98.2 F 47 15 106/54 90 - Physical Examination General: Present: Conversant, Well developed Vascular: Present: Edema (The edema of the left upper extremity continues to slowly decrease. Again the induration in the area of the elbow is also slowly decreasing. The patient does have 2 unbroken blebs on the proximal ventral aspect of the forearm. The ecchymoses along the ventral surface is stable if not slightly improved. The patient has a easily palpable thrill over the cephalic vein in the lower upper arm region.) Results 04/24/17 03:55 04/24/17 03:55 Lab Results, Last 24 hours 04/24/17 04/24/17 03:55 03:55 WBC 8.7 Hgb 9.1 L Hct 29.8 L Plt Count 212 Sodium 137 Potassium 4.3 Chloride 99 Carbon Dioxide 25 BUN 68 H Creatinine 4.83 H Glucose 171 H Calcium 8.6 Consult Discharge Plan - Plan Referrals: Jace Will DO [Primary Care Provider] -
[2017-04-24] MEDS: Insulin DETEMIR 100 UNIT/ML X5UNITS SQ SCH (09:29)
[2017-04-24] MEDS ORDERED: *HR* HYDROmorphone (PF) 1 MG/ML SYRINGE IVP ONE (12:57)
--- NOTE | 2017-04-24 13:05 | Nephrology Progress Note ---
Date of Encounter: 04/24/17 Time of Encounter: 13:03 - Assessment and Plan (1) Complication of AV dialysis fistula Current Visit: Yes Status: Acute Per vascular surgery. s/p surgical intervention. surgical dressing c/d/i. Qualifiers: Encounter type: initial encounter Qualified Code(s): T82.9XXA - Unspecified complication of cardiac and vascular prosthetic device, implant and graft, initial encounter (2) ESRD (end stage renal disease) Current Visit: Yes Status: Chronic Patient on dialysis. Today is day 3 of dialysis. Plan to dialyze today and possibly Wednesday. Patient experienced cramping on dialysis yesterday so will not remove fluid today. Renal dose medications. Renal diet. Awaiting dialysis chair. Will likely be next week before dialysis chair is confirmed. (3) Diabetes Current Visit: Yes Status: Chronic Per primary team. Qualifiers: Diabetes mellitus type: type 2 Diabetes mellitus complication status: without complication Diabetes mellitus fdc insulin use: with fdc use Qualified Code(s): E11.9 - Type 2 diabetes mellitus without complications ; Z79.4 - skilled nursing (current) use of insulin; Z79.4 - skilled nursing (current) use of insulin; Z79.4 - skilled nursing (current) use of insulin; Z79.4 - skilled nursing ( current) use of insulin (4) HTN (hypertension) Current Visit: Yes Status: Chronic Goal blood pressure less than 130/80. Titrate antihypertensive medications as needed. Qualifiers: Hypertension type: essential hypertension Qualified Code(s): I10 - Essential (primary) hypertension Subjective Principal diagnosis: LUE swelling Interval history: Patient seen. He is frustrated that his pain is not controlled and reports he felt "terrible" while on dialysis. He initially was expressing a desire to quit dialysis, but recanted after venting his frustration. He is unaware of when he will be going home. He denies dyspnea or chest pain. Objective - Vital Signs Vital signs: Vital Signs Temp Pulse Resp BP Pulse Ox 04/24/17 11:46 98.0 F 52 15 144/62 91 04/24/17 07:17 98.2 F 47 15 106/54 90 04/24/17 04:55 98.0 F 74 17 131/76 90 04/23/17 23:39 97.7 F 100 16 118/71 88 04/23/17 19:35 98.1 F 79 16 119/91 95 Intake and Output 04/23/17 04/24/17 04/24/17 23:59 07:59 15:59 Intake Total 120 / 120 Balance 120 / 120 Intake: Oral 120 / 120 Other: Meal Breakfast Percent of Meal Consumed 80% Blood Glucose* 281 191 214 - General Appearance General appearance: Present: well-developed, well-nourished EENT: Present: ATNC Neck: Present: supple Cardiology: Present: no edema Additional Comments: bradycardic Dialysis Vascular Access: Venous Catheter (Right IJ) Additional Comments: Left arm surgical dressing c/d/i. Integumentary: Present: warm and dry Neurologic: Present: alert and oriented x3 Musculoskeletal: Present: no cyanosis Psychiatric: Present: agitated, depressed - Lab 04/24/17 03:55 04/24/17 03:55 Most recent lab results Calcium 8.6 mg/dL (8.6-10.3) 04/24/17 03:55 Magnesium 1.8 mg/dL (1.6-2.6) 04/21/17 04:06 Consult Discharge Plan - Plan Referrals: Jace Will DO [Primary Care Provider] -
[2017-04-24] MEDS ORDERED: *HR* Warfarin 5 MG TABLET PO ONE (18:00)
[2017-04-24] MEDS: cefTRIAXone 1,000 MG in Water for inj. (sterile) 10 ML IVP SCH (18:03)
[2017-04-24] MEDS: clonazePAM 0.5 MG TABLET PO SCH (19:40)
[2017-04-24] MEDS: Gabapentin 300 MG CAPSULE PO SCH (19:40)
[2017-04-24] MEDS ORDERED: 0.9 % Sodium Chloride 1,000 ML ONE (20:51)
[2017-04-25] MEDS: *HR* Morphine 2 MG/ML SYRINGE IVP PRN ×2 (01:40→22:37)
[2017-04-25 02:01] LABS: Basophils # 0.1 K/mcL (0.0-0.2); Basophils % 1.1 %; Eosinophils # 0.3 K/mcL (0.0-0.6); Eosinophils % 2.7 %; Hematocrit 30.7 % (37.5-50.1); Hemoglobin 9.7 g/dL (12.9-16.9); Immature Granulocytes % 0.3 % (0-4); Lymphocytes # 1.3 K/mcL (0.6-4.6); Mean Corpuscular HGB Conc 31.6 g/dL (31.6-35.5); Mean Corpuscular Hemoglobin 31.4 pg (28.0-33.3); Mean Corpuscular Volume 99.4 fL (83.0-100.0); Monocytes # 1.1 K/mcL (0.0-1.3); Neutrophils # 6.6 K/mcL (1.6-8.9); Platelet Count 242 K/mcL (140-400); Red Blood Count 3.09 M/mcL (4.19-5.50); Red Cell Distribution Width 14.5 % (11.5-14.5); Segmented Neutrophils % 69.9 %
[2017-04-25 02:25] LABS: Calcium 8.9 mg/dL (8.6-10.3); Potassium 3.9 mEq/L (3.5-5.1)
[2017-04-25] MEDS: Furosemide 40 MG TABLET PO SCH (09:37)
[2017-04-25] MEDS: Renal Vitamin 1 MG CAPSULE PO SCH (09:37)
[2017-04-25] MEDS: *HR* OxyCODONE/APAP 10/325 TABLET PO PRN ×2 (09:37→22:51)
[2017-04-25] MEDS: Cyanocobalamin (B-12) 1,000 MCG TABLET PO SCH (09:37)
[2017-04-25] MEDS: Calcium Acetate 667 MG CAPSULE PO SCH ×3 (09:37→17:20)
[2017-04-25] MEDS: Insulin LISPRO 300 UNITS/3 ML VIAL SQ SCH ×4 (09:38→23:13)
[2017-04-25] MEDS: *HR* Metoprolol 5 MG/5 ML VIAL IVP PRN (09:41)
--- NOTE | 2017-04-25 10:01 | Internal Med Progress Note ---
Date of Encounter: 04/25/17 Time of Encounter: 08:00 - Assessment and plan (1) ESRD (end stage renal disease) Current Visit: Yes Status: Chronic Assessment and plan: Nephrology is following. He is status post 3 days of initiation of dialysis. Appreciate their help. (2) Cellulitis Current Visit: Yes Status: Acute Assessment and plan: continue with ceftriaxone. I think this is improving. Stopped vancomycin cefepime. Qualifiers: Site of cellulitis: extremity Site of cellulitis of extremity: upper extremity Laterality: left Qualified Code(s): L03.114 - Cellulitis of left upper limb (3) Diabetes Current Visit: Yes Status: Chronic Assessment and plan: Still uncontrolled. I would give him an extra 15 units daily on top of the 30 units of Levemir that he is on. Continue with insulin sliding scale. Continue with Accu-Cheks. Qualifiers: Diabetes mellitus type: type 2 Diabetes mellitus complication status: without complication Diabetes mellitus prison insulin use: with prison use Qualified Code(s): E11.9 - Type 2 diabetes mellitus without complications ; Z79.4 - care home (current) use of insulin; Z79.4 - care home (current) use of insulin; Z79.4 - test desk trouble locator (current) use of insulin; Z79.4 - care home ( current) use of insulin (4) HTN (hypertension) Current Visit: Yes Status: Chronic Assessment and plan: Blood pressure stable. On lasix Qualifiers: Hypertension type: essential hypertension Qualified Code(s): I10 - Essential (primary) hypertension (5) Atrial fibrillation Current Visit: Yes Status: Chronic Assessment and plan: hx PAF. Rate controlled. Continue home propafenone. On Coumadin for anticoag Qualifiers: Atrial fibrillation type: paroxysmal Qualified Code(s): I48.0 - Paroxysmal atrial fibrillation (6) DVT prophylaxis Current Visit: Yes Status: Acute Assessment and plan: coumadin. (7) Goals of care, counseling/discussion Current Visit: Yes Status: Acute Assessment and plan: Patient would likely need some rehabilitation or skilled facility placement. This is likely not going to happen until after the holidays. We will keep going as is up until this is set up. - Subjective Interval history: The patient was being combative at night apparently in was disrespectful nursing staff. He is much more calmer this morning. The patient was dialyzed yesterday and has now been dialyzed for 3 days. He has been afebrile. - Constitutional Vitals: Temp Pulse Resp BP Pulse Ox 97.5 F L 91 16 137/56 90 04/25/17 03:51 04/25/17 03:51 04/25/17 03:51 04/25/17 03:51 04/25/17 03:51 General appearance: Present: cooperative, A&O X 3, morbidly obese, pleasant, obese, answers questions appropriately Exam: GEN: NAD CVS: RRR. S1, S2, No m/r/g RESP: CTAB ABD: Soft, NT, ND, +BS EXT: Left upper extremity is noted with edema and erythema. Area is tender to palpation.. 2+ DP, NEURO: Nonfocal Internal Medicine: Result - Labs CBC & Chem 7: 04/25/17 01:45 04/25/17 01:45 Labs: Short CBC 04/25/17 Range/Units 01:45 WBC 9.4 (4.3-11.1) K/mcL Hgb 9.7 L (12.9-16.9) g/dL Hct 30.7 L (37.5-50.1) % Plt Count 242 (140-400) K/mcL Neutrophils # 6.6 (1.6-8.9) K/mcL BMP 04/25/17 01:45 Sodium 138 Potassium 3.9 Chloride 100 Carbon Dioxide 26 BUN 41 H Creatinine 3.57 H Glucose 116 H Calcium 8.9 - ABG Interpretation ABG results: PT/INR, D-dimer PT 14.3 Seconds (9.4-12.1) H 04/23/17 04:24 Consult Discharge Plan - Plan Referrals: Jace Will DO [Primary Care Provider] -
[2017-04-25] MEDS ORDERED: Insulin DETEMIR 100 UNIT/ML X5UNITS SQ SCH (10:02)
--- NOTE | 2017-04-25 10:47 | Nephrology Progress Note ---
Date of Encounter: 04/25/17 Time of Encounter: 10:45 - Assessment and Plan (1) Complication of AV dialysis fistula Current Visit: Yes Status: Acute Per vascular surgery. s/p surgical intervention. surgical dressing c/d/i. Qualifiers: Encounter type: initial encounter Qualified Code(s): T82.9XXA - Unspecified complication of cardiac and vascular prosthetic device, implant and graft, initial encounter (2) ESRD (end stage renal disease) Current Visit: Yes Status: Chronic Patient on dialysis. Today is day 4 of dialysis. Plan to dialyze today for uncontrolled hypertension . . Renal dose medications. Renal diet. Awaiting dialysis chair. Will likely be next week before dialysis chair is confirmed. (3) Diabetes Current Visit: Yes Status: Chronic Per primary team. Qualifiers: Diabetes mellitus type: type 2 Diabetes mellitus complication status: without complication Diabetes mellitus ferry terminal agent insulin use: with ferry terminal agent use Qualified Code(s): E11.9 - Type 2 diabetes mellitus without complications ; Z79.4 - long-term (current) use of insulin; Z79.4 - terminal worker (current) use of insulin; Z79.4 - terminal worker (current) use of insulin; Z79.4 - terminal worker ( current) use of insulin (4) HTN (hypertension) Current Visit: Yes Status: Chronic Goal blood pressure less than 130/80. Titrate antihypertensive medications as needed. Qualifiers: Hypertension type: essential hypertension Qualified Code(s): I10 - Essential (primary) hypertension Subjective Principal diagnosis: LUE swelling Interval history: Patient seen. He is frustrated again that his pain is not controlled and reports he didn't feel "great" while on dialysis. He seems to be frustrated with all of his comorbidities. . Objective - Vital Signs Vital signs: Vital Signs Temp Pulse Resp BP Pulse Ox 04/25/17 03:51 97.5 F L 91 16 137/56 90 04/24/17 23:43 98.5 F 99 16 123/79 90 04/24/17 19:51 97.5 F L 111 17 103/54 91 04/24/17 16:50 97.0 F L 18 147/78 04/24/17 16:30 159/79 04/24/17 16:15 136/62 04/24/17 16:00 143/75 04/24/17 15:45 169/60 04/24/17 15:30 126/63 04/24/17 15:15 156/54 04/24/17 15:00 148/57 04/24/17 14:45 155/71 04/24/17 14:30 144/56 04/24/17 14:15 155/58 04/24/17 14:00 138/87 04/24/17 13:45 139/61 04/24/17 11:46 98.0 F 52 15 144/62 91 Intake and Output 04/24/17 04/25/17 04/25/17 23:59 07:59 15:59 Intake Total Output Total 2099 125 / 125 Balance -2099 -2100 -115 / -115 Intake: IV Fluids Rocephin 1,000 MG In Water for inj. (sterile) 10 ML @ 300 mls/ hr IVP Q24H [facility] Rx#:[id number] Output: Urine 0 / 0 125 / 125 Total Dialysis (HD) Output 2099 Other: Weight 106.7 kg Blood Glucose* 131 Hemodialysis Net Fluid Removed 1500 (mL) Patient Weight 04/25/17 23:59 Weight 106.7 kg - General Appearance General appearance: Present: well-developed, well-nourished EENT: Present: ATNC Neck: Present: supple Respiratory: Present: course breath sounds Cardiology: Present: edema (trace edema. ), regular rate Dialysis Vascular Access: Venous Catheter Integumentary: Present: warm and dry Neurologic: Present: alert and oriented x3 Musculoskeletal: Present: no cyanosis Psychiatric: Present: agitated (/frustrated), depressed (seems to have some element of depression. ) - Lab 04/25/17 01:45 04/25/17 01:45 Most recent lab results Calcium 8.9 mg/dL (8.6-10.3) 04/25/17 01:45 Magnesium 1.8 mg/dL (1.6-2.6) 04/21/17 04:06 Consult Discharge Plan - Plan Referrals: Jace Will DO [Primary Care Provider] -
[2017-04-25] MEDS ORDERED: *HR* Heparin 10,000 UNIT/10 ML VIAL IV PRN (11:34)
[2017-04-25] MEDS: Insulin DETEMIR 100 UNIT/ML X5UNITS SQ SCH (12:14)
[2017-04-25] MEDS: cefTRIAXone 1,000 MG in Water for inj. (sterile) 10 ML IVP SCH (17:20)
[2017-04-25 17:41] LABS: INR 1.5; Prothrombin Time 16.8 Seconds (9.4-12.1)
[2017-04-25] MEDS ORDERED: *HR* Warfarin 5 MG TABLET PO ONE (20:17)
[2017-04-25] MEDS: Gabapentin 300 MG CAPSULE PO SCH (22:39)
[2017-04-25] MEDS: clonazePAM 0.5 MG TABLET PO SCH (22:40)
[2017-04-26] MEDS: *HR* Morphine 2 MG/ML SYRINGE IVP PRN (03:45)
[2017-04-26] MEDS: *HR* Metoprolol 5 MG/5 ML VIAL IVP PRN (03:45)
[2017-04-26] MEDS: *HR* OxyCODONE/APAP 10/325 TABLET PO PRN ×2 (05:52→20:33)
[2017-04-26] MEDS: Insulin LISPRO 300 UNITS/3 ML VIAL SQ SCH ×4 (07:22→20:33)
[2017-04-26] MEDS: Renal Vitamin 1 MG CAPSULE PO SCH (07:51)
[2017-04-26] MEDS: Cyanocobalamin (B-12) 1,000 MCG TABLET PO SCH (07:51)
[2017-04-26] MEDS: Furosemide 40 MG TABLET PO SCH (07:51)
[2017-04-26] MEDS: Calcium Acetate 667 MG CAPSULE PO SCH ×3 (07:51→16:51)
--- NOTE | 2017-04-26 09:04 | Nephrology Progress Note ---
Date of Encounter: 04/26/17 Time of Encounter: 09:02 - Assessment and Plan (1) Complication of AV dialysis fistula Current Visit: Yes Status: Acute Per vascular surgery. s/p surgical intervention. surgical dressing c/d/i. Qualifiers: Encounter type: initial encounter Qualified Code(s): T82.9XXA - Unspecified complication of cardiac and vascular prosthetic device, implant and graft, initial encounter (2) ESRD (end stage renal disease) Current Visit: Yes Status: Chronic Patient on dialysis. Did not need dialysis yesterday. Plan to perform dialysis Wednesday. . Renal dose medications. Renal diet. Awaiting dialysis chair. (3) Diabetes Current Visit: Yes Status: Chronic Per primary team. Qualifiers: Diabetes mellitus type: type 2 Diabetes mellitus complication status: without complication Diabetes mellitus long-term insulin use: with long-term use Qualified Code(s): E11.9 - Type 2 diabetes mellitus without complications ; Z79.4 - petroleum terminal plant operator (current) use of insulin; Z79.4 - jail (current) use of insulin; Z79.4 - petroleum terminal plant operator (current) use of insulin; Z79.4 - jail ( current) use of insulin (4) HTN (hypertension) Current Visit: Yes Status: Chronic Goal blood pressure less than 130/80. Titrate antihypertensive medications as needed. Qualifiers: Hypertension type: essential hypertension Qualified Code(s): I10 - Essential (primary) hypertension Subjective Principal diagnosis: LUE swelling Interval history: Patient seen. He is eating better, complaining of arm pain, but overall in a better mood. Objective - Vital Signs Vital signs: Vital Signs Temp Pulse Resp BP Pulse Ox 04/26/17 06:59 98.3 F 84 16 147/83 94 04/26/17 03:18 98.1 F 80 17 171/102 94 04/25/17 23:48 97.9 F 81 18 160/80 94 04/25/17 19:58 97.9 F 75 17 127/42 98 04/25/17 15:33 97.9 F 73 17 133/58 92 04/25/17 11:21 97.8 F 81 18 108/46 92 Intake and Output 04/25/17 04/26/17 04/26/17 23:59 07:59 15:59 Intake Total 200 / 200 Output Total 200 / 200 Balance 0 / 0 Intake: Oral 200 / 200 Output: Urine 200 / 200 Other: Weight 103.5 kg Blood Glucose* 92 96 Patient Weight 04/26/17 23:59 Weight 103.5 kg - General Appearance General appearance: Present: well-developed, well-nourished, obese EENT: Present: ATNC Cardiology: Present: regular rate Neurologic: Present: alert and oriented x3 Psychiatric: Present: mood/affect appropriate - Lab 04/25/17 01:45 04/25/17 01:45 Most recent lab results Calcium 8.9 mg/dL (8.6-10.3) 04/25/17 01:45 Magnesium 1.8 mg/dL (1.6-2.6) 04/21/17 04:06 Consult Discharge Plan - Plan Referrals: Jace Will DO [Primary Care Provider] -
--- NOTE | 2017-04-26 10:00 | Internal Med Progress Note ---
Date of Encounter: 04/26/17 Time of Encounter: 09:00 - Assessment and plan (1) ESRD (end stage renal disease) Current Visit: Yes Status: Chronic Assessment and plan: Nephrology is following. He is status post 3 days of initiation of dialysis. Plan for dialysis tomorrow. Appreciate their help. (2) Cellulitis Current Visit: Yes Status: Acute Assessment and plan: continue with ceftriaxone. I think this is improving again. Stopped vancomycin cefepime. Qualifiers: Site of cellulitis: extremity Site of cellulitis of extremity: upper extremity Laterality: left Qualified Code(s): L03.114 - Cellulitis of left upper limb (3) Diabetes Current Visit: Yes Status: Chronic Assessment and plan: Much better controlled. Continue with current 45 units of Levemir every morning. Continue with insulin sliding scale. Continue with Accu-Cheks. 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 On lasix Qualifiers: Hypertension type: essential hypertension Qualified Code(s): I10 - Essential (primary) hypertension (5) Atrial fibrillation Current Visit: Yes Status: Chronic Assessment and plan: hx PAF. Rate controlled. Continue home propafenone. On Coumadin for anticoag Qualifiers: Atrial fibrillation type: paroxysmal Qualified Code(s): I48.0 - Paroxysmal atrial fibrillation (6) DVT prophylaxis Current Visit: Yes Status: Acute Assessment and plan: coumadin. (7) Goals of care, counseling/discussion Current Visit: Yes Status: Acute - Subjective Interval history: No acute events. The patient did not need dialysis yesterday. He has been afebrile. - Constitutional Vitals: Temp Pulse Resp BP Pulse Ox 98.3 F 84 16 147/83 94 04/26/17 06:59 04/26/17 06:59 04/26/17 06:59 04/26/17 06:59 04/26/17 06:59 General appearance: Present: cooperative, A&O X 3, morbidly obese, pleasant, obese, answers questions appropriately Exam: GEN: NAD CVS: RRR. S1, S2, No m/r/g RESP: CTAB ABD: Soft, NT, ND, +BS EXT: Left upper extremity is noted with edema and erythema. Area is tender to palpation.. 2+ DP, NEURO: Nonfocal Internal Medicine: Result - Labs CBC & Chem 7: 04/25/17 01:45 04/25/17 01:45 - ABG Interpretation ABG results: PT/INR, D-dimer PT 16.8 Seconds (9.4-12.1) H 04/25/17 17:20 Consult Discharge Plan - Plan Referrals: Jace Will DO [Primary Care Provider] -
[2017-04-26 10:45] LABS: INR 1.7
[2017-04-26] MEDS: cefTRIAXone 1,000 MG in Water for inj. (sterile) 10 ML IVP SCH (16:52)
[2017-04-26] MEDS ORDERED: *HR* Warfarin 5 MG TABLET PO ONE (18:00)
[2017-04-26] MEDS: Gabapentin 300 MG CAPSULE PO SCH (20:34)
[2017-04-26] MEDS: clonazePAM 0.5 MG TABLET PO SCH (20:34)
[2017-04-27] MEDS: *HR* Morphine 2 MG/ML SYRINGE IVP PRN (03:54)
[2017-04-27] MEDS: *HR* Metoprolol 5 MG/5 ML VIAL IVP PRN (03:54)
[2017-04-27 05:32] LABS: Calcium 8.5 mg/dL (8.6-10.3); Potassium 4.9 mEq/L (3.5-5.1)
[2017-04-27 05:33] LABS: Basophils # 0.1 K/mcL (0.0-0.2); Basophils % 0.9 %; Eosinophils # 0.3 K/mcL (0.0-0.6); Eosinophils % 2.5 %; Hemoglobin 10.1 g/dL (12.9-16.9); Immature Granulocytes % 0.5 % (0-4); Lymphocytes # 0.9 K/mcL (0.6-4.6); Lymphocytes % 6.9 %; Mean Corpuscular HGB Conc 30.6 g/dL (31.6-35.5); Mean Corpuscular Hemoglobin 31.2 pg (28.0-33.3); Mean Corpuscular Volume 101.9 fL (83.0-100.0); Mean Platelet Volume 10.2 fL (9.4-12.4); Monocytes # 1.1 K/mcL (0.0-1.3); Monocytes % 8.9 %; Neutrophils # 10.2 K/mcL (1.6-8.9); Platelet Count 282 K/mcL (140-400); Red Blood Count 3.24 M/mcL (4.19-5.50); Red Cell Distribution Width 13.8 % (11.5-14.5); Segmented Neutrophils % 80.3 %
[2017-04-27 05:42] LABS: INR 2.3; Prothrombin Time 24.9 Seconds (9.4-12.1)
[2017-04-27] MEDS: *HR* HYDROcodone/Acet 5/325 mg TABLET PO PRN ×2 (06:33→14:00)
[2017-04-27] MEDS ORDERED: *HR* Heparin 10,000 UNIT/10 ML VIAL IV PRN (08:02)
[2017-04-27] MEDS ORDERED: 0.9 % Sodium Chloride 250 ML IVC PRN (08:02)
[2017-04-27] MEDS ORDERED: 0.9 % Sodium Chloride 2,000 ML ONE (09:02)
--- NOTE | 2017-04-27 10:11 | Nephrology Progress Note ---
Date of Encounter: 04/27/17 Time of Encounter: 10:09 - Assessment and Plan (1) ESRD (end stage renal disease) on dialysis Current Visit: Yes Status: Acute HD today Continue strict I/Os Continue renal diet Avoid nephrotoxins if possible Waiting on chair time-per social insurance administrator notes patient going to [facility]. Once he has a chair time he can be discharged from a nephrology standpoint. (2) Complication of AV dialysis fistula Current Visit: Yes Status: Acute per vascular surgery Qualifiers: Encounter type: initial encounter Qualified Code(s): T82.9XXA - Unspecified complication of cardiac and vascular prosthetic device, implant and graft, initial encounter (3) Diabetes Current Visit: Yes Status: Chronic per primary team Qualifiers: Diabetes mellitus type: type 2 Diabetes mellitus complication status: without complication Diabetes mellitus halfway insulin use: with halfway use Qualified Code(s): E11.9 - Type 2 diabetes mellitus without complications ; Z79.4 - intermediate school teacher (current) use of insulin; Z79.4 - intermediate school teacher (current) use of insulin; Z79.4 - half-way (current) use of insulin; Z79.4 - half-way ( current) use of insulin Subjective Principal diagnosis: LUE swelling Interval history: Patient seen and examined while on dialysis. Sleeps through entire exam Objective - Vital Signs Vital signs: Vital Signs Temp Pulse Resp BP Pulse Ox 04/27/17 09:30 161/74 04/27/17 09:15 150/69 04/27/17 09:00 155/71 04/27/17 08:45 99.1 F 16 142/79 04/27/17 06:53 80 17 117/76 95 04/27/17 03:58 97.9 F 130 16 139/97 92 04/27/17 03:36 97.9 F 04/26/17 23:34 97.5 F L 87 16 125/42 94 04/26/17 19:58 97.8 F 16 141/73 96 04/26/17 16:02 98.2 F 91 17 152/76 94 04/26/17 10:57 98.0 F 94 17 142/79 95 Intake and Output 04/26/17 04/27/17 04/27/17 23:59 07:59 15:59 Intake Total 540 / 540 0 / 0 600 / 600 Output Total 275 / 275 470 / 470 Balance 265 / 265 -470 / -470 600 / 600 Intake: Oral 540 / 540 0 / 0 0 / 0 Intake, Rinseback and Flushes 600 / 600 Output: Urine 275 / 275 220 / 220 Catheter 250 / 250 Other: Meal Dinner Percent of Meal Consumed 65% # Voids 1 Weight 104.3 kg Blood Glucose* 270 202 Hemodialysis Net Fluid Removed 565 (mL) Patient Weight 04/27/17 23:59 Weight 104.3 kg - General Appearance General appearance: Present: well-developed, well-nourished EENT: Present: ATNC Neck: Present: supple Respiratory: Present: clear Cardiology: Present: no edema, normal S1, normal S2 Dialysis Vascular Access: Venous Catheter Gastrointestinal: Present: no tenderness, no guarding Integumentary: Present: warm and dry Psychiatric: Present: mood/affect appropriate, cooperative - Lab 04/27/17 04:55 04/27/17 04:55 Most recent lab results Calcium 8.5 mg/dL (8.6-10.3) L 04/27/17 04:55 Magnesium 1.8 mg/dL (1.6-2.6) 04/21/17 04:06 Consult Discharge Plan - Plan Referrals: Jace Will DO [Primary Care Provider] -
[2017-04-27] MEDS ORDERED: Insulin DETEMIR 100 UNIT/ML X5UNITS SQ SCH (10:30)
[2017-04-27] MEDS: Insulin LISPRO 300 UNITS/3 ML VIAL SQ SCH ×3 (10:55→17:29)
[2017-04-27] MEDS: Renal Vitamin 1 MG CAPSULE PO SCH (10:57)
[2017-04-27] MEDS: Calcium Acetate 667 MG CAPSULE PO SCH ×3 (10:58→17:47)
[2017-04-27] MEDS: Furosemide 40 MG TABLET PO SCH (10:58)
[2017-04-27] MEDS: Cyanocobalamin (B-12) 1,000 MCG TABLET PO SCH (10:58)
--- NOTE | 2017-04-27 11:22 | Internal Med Progress Note ---
Date of Encounter: 04/27/17 Time of Encounter: 11:00 - Assessment and plan (1) ESRD (end stage renal disease) Current Visit: Yes Status: Chronic Assessment and plan: Nephrology is following. He is status post 3 days of initiation of dialysis. He is going to be Wednesday dialysis. Appreciate their help. (2) Cellulitis Current Visit: Yes Status: Acute Assessment and plan: continue with ceftriaxone. He has a mild elevation in his white count today. We will check labs in the morning for discharge. Clinically he looks better. Qualifiers: Site of cellulitis: extremity Site of cellulitis of extremity: upper extremity Laterality: left Qualified Code(s): L03.114 - Cellulitis of left upper limb (3) Diabetes Current Visit: Yes Status: Chronic Assessment and plan: I think we can decrease his Levemir to 20 units from 45 units. He was on 15 units before coming here. Continue with insulin sliding scale. Continue with Accu-Cheks. Qualifiers: Diabetes mellitus type: type 2 Diabetes mellitus complication status: without complication Diabetes mellitus [facility] insulin use: with predatory animal exterminator use Qualified Code(s): E11.9 - Type 2 diabetes mellitus without complications ; Z79.4 - superintendent terminal (current) use of insulin; Z79.4 - group home (current) use of insulin; Z79.4 - superintendent terminal (current) use of insulin; Z79.4 - superintendent terminal ( current) use of insulin (4) HTN (hypertension) Current Visit: Yes Status: Chronic Assessment and plan: Nephrology thinks his blood pressure being elevated is secondary to volume. We will continue with Lasix. Dialysis should help. Qualifiers: Hypertension type: essential hypertension Qualified Code(s): I10 - Essential (primary) hypertension (5) Atrial fibrillation Current Visit: Yes Status: Chronic Assessment and plan: hx PAF. Rate controlled. Continue home propafenone. On Coumadin for anticoag Qualifiers: Atrial fibrillation type: paroxysmal Qualified Code(s): I48.0 - Paroxysmal atrial fibrillation (6) DVT prophylaxis Current Visit: Yes Status: Acute Assessment and plan: coumadin. (7) Goals of care, counseling/discussion Current Visit: Yes Status: Acute Assessment and plan: The patient apparently has a place to go to. I will hold his discharge today. Check labs in the morning to see if his white count continues to elevate. If his white count stays on the same or normalizes he can be discharged. - Subjective Interval history: No acute events. Patient is in dialyzed now. His blood pressures on the higher side. He has been afebrile. - Constitutional Vitals: Temp Pulse Resp BP Pulse Ox 99.1 F 80 16 173/66 95 04/27/17 08:45 04/27/17 06:53 04/27/17 08:45 04/27/17 11:00 04/27/17 06:53 General appearance: Present: cooperative, A&O X 3, morbidly obese, pleasant, obese, answers questions appropriately Exam: GEN: NAD CVS: RRR. S1, S2, No m/r/g RESP: CTAB ABD: Soft, NT, ND, +BS EXT: Left upper extremity is noted with edema and erythema. Area is tender to palpation.. 2+ DP, NEURO: Nonfoc Internal Medicine: Result - Labs CBC & Chem 7: 04/27/17 04:55 04/27/17 04:55 Labs: Short CBC 04/27/17 Range/Units 04:55 WBC 12.7 H (4.3-11.1) K/mcL Hgb 10.1 L (12.9-16.9) g/dL Hct 33.0 L (37.5-50.1) % Plt Count 282 (140-400) K/mcL Neutrophils # 10.2 H (1.6-8.9) K/mcL BMP 04/27/17 04:55 Sodium 135 L Potassium 4.9 Chloride 99 Carbon Dioxide 21 L BUN 80 H Creatinine 5.42 H Glucose 164 H Calcium 8.5 L - ABG Interpretation ABG results: PT/INR, D-dimer PT 24.9 Seconds (9.4-12.1) H 04/27/17 04:55 Consult Discharge Plan - Plan Referrals: Jace Will DO [Primary Care Provider] - (web request 04/27/2017)
--- NOTE | 2017-04-27 16:54 | Vascular/[facility] Progress Note ---
Date of Encounter: 04/27/17 Time of Encounter: 16:52 - Assessment and plan (1) Cellulitis Current Visit: Yes Status: Acute Left upper extremity cellulitis and edema is dramatically improved. Focus now is on resolution of wound care issues and increasing strength and range of motion to the left upper extremity. The AV fistula remains patent. Qualifiers: Site of cellulitis: extremity Site of cellulitis of extremity: upper extremity Laterality: left Qualified Code(s): L03.114 - Cellulitis of left upper limb (2) Pain and swelling of left upper extremity Current Visit: Yes Status: Acute Significant improvement of edema of left upper extremity. (3) ESRD (end stage renal disease) Current Visit: Yes Status: Chronic Patient had PermCath placed Wednesday a.m. via right internal jugular vein. From vascular surgery perspective patient may be discharged/Rehab transfer once dialysis stability has been achieved. The patient had dialysis today. - Subjective Interval history: Patient is resting in bed. His is at his bedside. He had dialysis earlier today. He has no new complaints. Vital Signs, Last 4 Hours Pulse Resp BP Pulse Ox 04/27/17 15:33 99 17 157/43 90 - Physical Examination Vascular: Present: Pulse, normal (The patient has a palpable thrill over the runoff veins at the antecubital area from the brachial antecubital AV fistula.) , Edema (The left upper extremity edema is markedly improved since my last checking of the wound on April 24. There is significantly less induration at the proximal elbow and distal upper arm. The erythema in the upper arm area is resolved. Patient still has decreased range of motion and some pain of the left elbow. There is essentially complete resolution of the edema of the hand and fingers.) Results 04/27/17 04:55 04/27/17 04:55 Lab Results, Last 24 hours 04/27/17 04/27/17 04/27/17 04:55 04:55 04:55 WBC 12.7 H Hgb 10.1 L Hct 33.0 L Plt Count 282 INR 2.3 Sodium 135 L Potassium 4.9 Chloride 99 Carbon Dioxide 21 L BUN 80 H Creatinine 5.42 H Glucose 164 H Calcium 8.5 L Consult Discharge Plan - Plan Referrals: Jace Will DO [Primary Care Provider] - (web request 04/27/2017) Ziggy Ambrose MD [Partnered Physician] - (Follow-up with Dr. Ambrose in 2 weeks)
[2017-04-27] MEDS: cefTRIAXone 1,000 MG in Water for inj. (sterile) 10 ML IVP SCH (17:47)
[2017-04-27] MEDS ORDERED: *HR* Warfarin 1 MG TABLET PO ONE (18:00)
[2017-04-27] MEDS: Gabapentin 300 MG CAPSULE PO SCH (21:13)
[2017-04-27] MEDS: *HR* OxyCODONE/APAP 10/325 TABLET PO PRN (21:13)
[2017-04-27] MEDS: clonazePAM 0.5 MG TABLET PO SCH (21:13)
[2017-04-28] MEDS: Insulin LISPRO 300 UNITS/3 ML VIAL SQ SCH ×2 (04:12→10:26)
[2017-04-28] MEDS: *HR* OxyCODONE/APAP 10/325 TABLET PO PRN (04:16)
[2017-04-28 04:53] LABS: Basophils # 0.1 K/mcL (0.0-0.2); Eosinophils # 0.2 K/mcL (0.0-0.6); Eosinophils % 1.8 %; Hematocrit 33.7 % (37.5-50.1); Hemoglobin 10.5 g/dL (12.9-16.9); Immature Granulocytes % 0.3 % (0-4); Immature Platelets 2.3 % (1.1-6.1); Lymphocytes # 1.4 K/mcL (0.6-4.6); Lymphocytes % 11.9 %; Mean Corpuscular HGB Conc 31.2 g/dL (31.6-35.5); Mean Corpuscular Hemoglobin 31.3 pg (28.0-33.3); Mean Corpuscular Volume 100.6 fL (83.0-100.0); Monocytes # 1.7 K/mcL (0.0-1.3); Monocytes % 13.7 %; Neutrophils # 8.6 K/mcL (1.6-8.9); Platelet Count 286 K/mcL (140-400); Red Blood Count 3.35 M/mcL (4.19-5.50); Segmented Neutrophils % 71.3 %
[2017-04-28 04:57] LABS: INR 2.3; Prothrombin Time 25.4 Seconds (9.4-12.1)
[2017-04-28 05:48] LABS: Calcium 8.7 mg/dL (8.6-10.3)
[2017-04-28] MEDS ORDERED: *HR* Heparin 10,000 UNIT/10 ML VIAL IV PRN (07:19)
[2017-04-28] MEDS ORDERED: 0.9 % Sodium Chloride 250 ML IVC PRN (07:19)
[2017-04-28] MEDS ORDERED: Insulin DETEMIR 100 UNIT/ML X5UNITS SQ SCH (10:09)
--- NOTE | 2017-04-28 10:12 | Discharge Summary ---
Date of Encounter: 04/28/17 Time of Encounter: 10:30 - Discharge Diagnosis (1) ESRD (end stage renal disease) Priority: Primary Status: Chronic (2) Cellulitis Priority: Primary Status: Acute Qualifiers: Site of cellulitis: extremity Site of cellulitis of extremity: upper extremity Laterality: left Qualified Code(s): L03.114 - Cellulitis of left upper limb (3) Diabetes Priority: Secondary Status: Chronic Qualifiers: Diabetes mellitus type: type 2 Diabetes mellitus complication status: without complication Diabetes mellitus [facility] insulin use: with oil heaterman use Qualified Code(s): E11.9 - Type 2 diabetes mellitus without complications ; Z79.4 - terminal worker (current) use of insulin; Z79.4 - intermediate (current) use of insulin; Z79.4 - intermediate (current) use of insulin; Z79.4 - intermediate ( current) use of insulin (4) HTN (hypertension) Priority: Secondary Status: Chronic Qualifiers: Hypertension type: essential hypertension Qualified Code(s): I10 - Essential (primary) hypertension (5) Atrial fibrillation Priority: Secondary Status: Chronic Qualifiers: Atrial fibrillation type: paroxysmal Qualified Code(s): I48.0 - Paroxysmal atrial fibrillation - Discharge Medications Prescriptions: OxyCODONE/APAP 10/325 [Percocet 10/325 MG] 1 each PO Q6HR PRN #12 tablet PRN Reason: Severe Pain (7-10) cephALEXin [Keflex] 500 mg PO TID #15 capsule clonazePAM [Klonopin] 0.5 mg PO HS #5 tablet Gabapentin [Neurontin] 300 mg PO HS #30 capsule Home Medications: Aspirin 81 mg PO DAILY 09/07/15 [History] Atorvastatin [Lipitor] 40 mg PO DAILY 09/07/15 [History] Calcitriol [Rocaltrol] 0.25 mcg PO BID 09/07/15 [History] Calcium Carbonate/Vitamin D3 [Calcium 500-Vit D3 400 Tablet] 1 each PO DAILY 11/15 [History] Cyanocobalamin (Vitamin B-12) [Vitamin B-12] 500 mcg SL DAILY 09/07/15 [History] Furosemide [Lasix] 40 mg PO DAILY 09/07/15 [History] Gluc/Samy-MSM#1/C/Heber/Slava/Bor [Osteo Bi-Flex Caplet] 1 each PO DAILY 09/07/15 [ History] Insulin Glargine [Lantus] 15 unit SQ QAM 09/07/15 [History] Propafenone [Rhythmol] 150 mg PO BID 09/07/15 [History] Warfarin [Coumadin] 2.5 mg PO SUTUWETHFRSA 09/07/15 [History] Warfarin [Coumadin] 5 mg PO MO 09/07/15 [History] Calcium Acetate 667 mg PO TID 04/13/17 [History] Cilostazol [Pletal] 100 mg PO BID 04/13/17 [History] Gabapentin [Neurontin] 300 mg PO HS #30 capsule 04/28/17 [Rx] Omeprazole [PriLOSEC] 40 mg PO DAILY@0630 capsule. 04/28/17 [Rx] OxyCODONE/APAP 10/325 [Percocet 10/325 MG] 1 each PO Q6HR PRN #12 tablet [Rx] Renal Vitamin [Renal Caps Softgel] 1 mg PO DAILY capsule 04/28/17 [Rx] Warfarin perPT [Coumadin perPT] 1 each PO DAILY@1800 PRN each 04/28/17 [Rx] cephALEXin [Keflex] 500 mg PO TID #15 capsule 04/28/17 [Rx] clonazePAM [Klonopin] 0.5 mg PO HS #5 tablet 04/28/17 [Rx] Allergies/Adverse Reactions: 3 Allergy/AdvReac Type Severity Reaction Status Date / Time Sulfa (Sulfonamide Allergy Rash Verified 04/20/17 12:13 Antibiotics) Date of admission: 04/21/17 13:04 Primary care physician: Jace Will DO Consults: 04/21/17 15:32 Consult to Invasive Line Access Team [CONS] Routine Reason for Consult: limited vascular access Line Type: EPIV 04/21/17 19:16 Consult to Media Buyer [CONS] Routine Reason for SW Consult: Please help arrange for a dialysis unit for new onset ESRD for thrice weekly HD. Thank you. 04/22/17 06:30 Consult to Dialysis [CONS] ONCE 04/23/17 06:45 Consult to Dialysis [CONS] ONCE 04/24/17 09:00 Consult to Dialysis [CONS] ONCE 04/25/17 11:45 Consult to Dialysis [CONS] ONCE 04/27/17 08:15 Consult to Dialysis [CONS] ONCE 04/28/17 07:30 Consult to Dialysis [CONS] ONCE - Patient Status Disposition: Transfer SNF - Discharge Instructions Follow Up With: Jace Will DO [Primary Care Provider] - (web request 04/27/2017) Ziggy Ambrose MD [Partnered Physician] - (Follow-up with Dr. Ambrose in 2 weeks) Ian Herrera MD [Partnered Physician] - (2 weeks) - Diet and Activity Activity: increase activity as tolerated Diet: diabetic diet (renal diet) Hospital course: Mr. Nicole is a 76 year old male with medical hx of atrial fibrillation, COPD, CAD, diabetes controlled with insulin, GERD, HLD, HTN, and history of angioplasty with stent placement 2 presented to ED with chief complaint of erythema and edema to left upper extremity. Patient reported surgery the week prior on 05/14 for which he underwent left radial artery thromboendarterecomy wt cephalic vein patch angioplasty and left antecubital AV fistula. He developed swelling and erythema post operatively and presented to the ED. he underwent venous duplex which rule out DVT. We admitted the patient to the hospitalist service. We treated him for cellulitis of the left upper extremity. The patient was seen by nephrology and was initiated on dialysis. He was already seen in nephrology as an outpatient with plans to start dialysis and was referred to vascular for the AV fistula creation. His kidney disease has progressed to end-stage renal disease and needed to be on dialysis urgently while hospitalized. He had 3 consecutive days of dialysis initiation. He had tunneled catheter placed for dialysis purposes. He is planned to be a Wednesday/ Wednesday/Wednesday dialysis and was set up with outpatient. Eventually the patient plans on transitioning into peritoneal dialysis and this will be discussed with the production manager as an outpatient. He was on IV ceftriaxone and showed significant improvement in his left upper extremity cellulitis. I ended up discharging the patient on oral Keflex. He was stable for discharge on 04/28. - Time Spent with Patient Total time spent providing and/or coordinating discharge services: Greater than 30 minutes - Constitutional Vitals: Temp Pulse Resp BP Pulse Ox 97.4 F L 99 18 128/95 93 04/28/17 08:04 04/28/17 08:04 04/28/17 08:04 04/28/17 08:04 04/28/17 08:04 General appearance: Present: cooperative, A&O X 3, morbidly obese, pleasant, obese, answers questions appropriately Exam: EN: NAD CVS: RRR. S1, S2, No m/r/g RESP: CTAB ABD: Soft, NT, ND, +BS EXT: Left upper extremity is noted with edema and erythema. Area is tender to palpation. 2+ DP, NEURO: Nonfoc - VTE Documentation of Mechanical Device: Intermittent pneumatic compression device
--- NOTE | 2017-04-28 10:20 | Physician Discharge Referral ---
ExtendedCare Referral Info Institutional Level of Care: Skilled - Diagnosis (1) ESRD (end stage renal disease) Status: Chronic (2) Cellulitis Priority: Primary Status: Acute (3) Diabetes Priority: Secondary Status: Chronic (4) HTN (hypertension) Priority: Secondary Status: Chronic (5) Atrial fibrillation Priority: Secondary Status: Chronic - Transfer Medications Prescriptions: OxyCODONE/APAP 10/325 [Percocet 10/325 MG] 1 each PO Q6HR PRN #12 tablet PRN Reason: Severe Pain (7-10) clonazePAM [Klonopin] 0.5 mg PO HS #5 tablet Gabapentin [Neurontin] 300 mg PO HS #30 capsule Home Medications: Aspirin 81 mg PO DAILY 09/07/15 [History] Atorvastatin [Lipitor] 40 mg PO DAILY 09/07/15 [History] Calcitriol [Rocaltrol] 0.25 mcg PO BID 09/07/15 [History] Calcium Carbonate/Vitamin D3 [Calcium 500-Vit D3 400 Tablet] 1 each PO DAILY 11/15 [History] Cyanocobalamin (Vitamin B-12) [Vitamin B-12] 500 mcg SL DAILY 09/07/15 [History] Furosemide [Lasix] 40 mg PO DAILY 09/07/15 [History] Gluc/Samy-MSM#1/C/Heber/Slava/Bor [Osteo Bi-Flex Caplet] 1 each PO DAILY 09/07/15 [ History] Insulin Glargine [Lantus] 15 unit SQ QAM 09/07/15 [History] Propafenone [Rhythmol] 150 mg PO BID 09/07/15 [History] Warfarin [Coumadin] 2.5 mg PO SUTUWETHFRSA 09/07/15 [History] Warfarin [Coumadin] 5 mg PO MO 09/07/15 [History] Calcium Acetate 667 mg PO TID 04/13/17 [History] Cilostazol [Pletal] 100 mg PO BID 04/13/17 [History] Gabapentin [Neurontin] 300 mg PO HS #30 capsule 04/28/17 [Rx] Omeprazole [PriLOSEC] 40 mg PO DAILY@0630 capsule. 04/28/17 [Rx] OxyCODONE/APAP 10/325 [Percocet 10/325 MG] 1 each PO Q6HR PRN #12 tablet [Rx] Renal Vitamin [Renal Caps Softgel] 1 mg PO DAILY capsule 04/28/17 [Rx] Warfarin perPT [Coumadin perPT] 1 each PO DAILY@1800 PRN each 04/28/17 [Rx] clonazePAM [Klonopin] 0.5 mg PO HS #5 tablet 04/28/17 [Rx] Allergies/Adverse Reactions: 3 Allergy/AdvReac Type Severity Reaction Status Date / Time Sulfa (Sulfonamide Allergy Rash Verified 04/20/17 12:13 Antibiotics) - Respiratory Orders Smoking Cessation: Smoking cessation has been advised. For more information, call the [place] Tobacco Quit Line at 8-656-RNOA-NOW. - Rehabiliation Orders Rehab Potential: Fair - Diet Orders Renal (diabetic) CERTIFICATION: I certify that the transfer of the above named patient to an Extended Care Facility is necessary for the continuing treatment of the diagnosis listed. The above information is true and accurate reflection of patient's current condition. Confidential - Redisclosure prohibited without a patient's written consent.
[2017-04-28] MEDS: Calcium Acetate 667 MG CAPSULE PO SCH ×2 (10:25→12:48)
[2017-04-28] MEDS: Furosemide 40 MG TABLET PO SCH (10:25)
[2017-04-28] MEDS: Renal Vitamin 1 MG CAPSULE PO SCH (10:25)
[2017-04-28] MEDS: Cyanocobalamin (B-12) 1,000 MCG TABLET PO SCH (10:26)
--- NOTE | 2017-04-28 11:31 | Nephrology Progress Note ---
Date of Encounter: 04/28/17 Time of Encounter: 11:29 - Assessment and Plan (1) Complication of AV dialysis fistula Current Visit: Yes Status: Acute Per vascular surgery. s/p surgical intervention. surgical dressing c/d/i. Qualifiers: Encounter type: initial encounter Qualified Code(s): T82.9XXA - Unspecified complication of cardiac and vascular prosthetic device, implant and graft, initial encounter (2) ESRD (end stage renal disease) Current Visit: Yes Status: Chronic Patient seen on dialysis. Renal dose medications. Renal diet. Will be on a [facility] schedule as an outpatient. (3) Diabetes Current Visit: Yes Status: Chronic Per primary team. Qualifiers: Diabetes mellitus type: type 2 Diabetes mellitus complication status: without complication Diabetes mellitus director long term care insulin use: with director long term care use Qualified Code(s): E11.9 - Type 2 diabetes mellitus without complications ; Z79.4 - director long term care (current) use of insulin; Z79.4 - skilled nursing (current) use of insulin; Z79.4 - skilled nursing (current) use of insulin; Z79.4 - skilled nursing ( current) use of insulin (4) HTN (hypertension) Current Visit: Yes Status: Chronic Goal blood pressure less than 130/80. Titrate antihypertensive medications as needed. Qualifiers: Hypertension type: essential hypertension Qualified Code(s): I10 - Essential (primary) hypertension Subjective Principal diagnosis: LUE swelling Interval history: Patient seen. He is on dialysis with no new complaint. Objective - Vital Signs Vital signs: Vital Signs Temp Pulse Resp BP Pulse Ox 04/28/17 11:00 161/61 04/28/17 10:45 154/64 04/28/17 10:30 165/53 04/28/17 10:15 153/56 04/28/17 10:00 116/62 04/28/17 09:45 147/76 04/28/17 09:30 97.4 F L 17 147/68 04/28/17 08:04 97.4 F L 99 18 128/95 93 04/28/17 05:08 98.4 F 98 16 134/83 95 04/28/17 01:22 98.2 F 90 18 144/76 96 04/27/17 18:59 97.6 F 92 16 153/64 94 04/27/17 15:33 99 17 157/43 90 04/27/17 12:30 97.2 F L 15 169/85 04/27/17 12:15 149/71 04/27/17 12:00 154/71 04/27/17 11:45 158/69 04/27/17 11:30 159/90 Intake and Output 04/27/17 04/28/17 04/28/17 23:59 07:59 15:59 Intake Total 100 / 100 840 / 840 Output Total 250 / 250 Balance -150 / -150 840 / 840 Intake: Oral 100 / 100 240 / 240 Intake, Rinseback and Flushes 600 / 600 Output: Urine 250 / 250 Other: Meal Dinner Breakfast Percent of Meal Consumed 10% 100% Weight 92.5 kg Blood Glucose* 81 82 Hemodialysis Net Fluid Removed 1299 (mL) - General Appearance General appearance: Present: well-developed, well-nourished EENT: Present: ATNC Neck: Present: supple Cardiology: Present: regular rate - Lab 04/28/17 04:30 04/28/17 04:30 Most recent lab results Calcium 8.7 mg/dL (8.6-10.3) 04/28/17 04:30 Magnesium 1.8 mg/dL (1.6-2.6) 04/21/17 04:06 - VTE Documentation of Mechanical Device: Intermittent pneumatic compression device Consult Discharge Plan - Plan Referrals: Ian Herrera MD [Partnered Physician] - (2 weeks) Jace Will DO [Primary Care Provider] - (web request 04/27/2017) Ziggy Ambrose MD [Partnered Physician] - (Follow-up with Dr. Ambrose in 2 weeks) Prescriptions: OxyCODONE/APAP 10/325 [Percocet 10/325 MG] 1 each PO Q6HR PRN #12 tablet PRN Reason: Severe Pain (7-10) cephALEXin [Keflex] 500 mg PO TID #15 capsule clonazePAM [Klonopin] 0.5 mg PO HS #5 tablet Gabapentin [Neurontin] 300 mg PO HS #30 capsule
[2017-04-28 12:43] VITALS: BP 158/69
[2017-04-28] MEDS: *HR* HYDROcodone/Acet 5/325 mg TABLET PO PRN (12:48)
[2017-04-28] MEDS: *HR* Metoprolol 5 MG/5 ML VIAL IVP PRN (12:48)
[2017-04-28] MEDS ORDERED: 0.9 % Sodium Chloride 2,000 ML ONE (13:03)
[2017-04-28] MEDS ORDERED: *HR* Warfarin 2 MG TABLET PO ONE (18:00)
== END 2017-04-28 15:28 | DRG 314 ==
LOC: 3ANU 12:06 → EMEROO 12:06 → 3ANU 17:21 → 2ANU 04-22 10:38
PROVIDERS: ADMIT Registered Nurse; ATTEND Internal Medicine
PROC: IRPERMA (2017-04-23 10:00)

== ENCOUNTER 2017-05-10 19:31 | Inpatient (IN) ==
--- NOTE | 2017-05-10 20:07 | Emergency Department Note ---
Disposition Clinical Impression: Cellulitis of forearm, left Disposition: Admitted As Inpatient Condition: Fair Time of Disposition: 00:09 General Adult HPI - General Chief complaint: ED Wound/Laceration Stated complaint: Wound infection Time Seen by Provider: 05/10/17 19:33 Source: patient Mode of arrival: EMS Limitations: no limitations Nursing Notes Reviewed: Yes Vital Signs Reviewed: Yes - History of Present Illness HPI Narrative: patient is a 76 her old male with a past medical history of atrial fibrillation , GA, COPD, left upper extremity fistula and dialysis presenting to the nurse's part with complaints of worsening left upper extremity pain, redness, swelling, and blistering and has been worsening over the past 2-3 days. The patient states that in early April 2017 he had a left upper extremity fistula placed for dialysis and after almost 1 week the fistula became cellulitic in which she was treated for antibiotics and underwent dialysis through his chest port and was placed in a senior living. The patient denies any fevers or chills, nausea or vomiting. He states he is unsure if he is on antibiotics at this time. He has seen Dr. Ambrose who is the surgeon that placed the fistula. Unsure of who his operations support representative is. He underwent dialysis today prior to arrival. Pain Scale: 10 - Related Data Home Medications Medication Instructions Recorded Confirmed Aspirin 81 mg PO DAILY 09/07/15 04/20/17 Atorvastatin [Lipitor] 40 mg PO DAILY 09/07/15 04/20/17 Calcitriol [Rocaltrol] 0.25 mcg PO BID 09/07/15 04/20/17 Calcium Carbonate/Vitamin D3 1 each PO DAILY 09/07/15 04/20/17 [Calcium 500-Vit D3 400 Tablet] Cyanocobalamin (Vitamin B-12) 500 mcg SL DAILY 09/07/15 04/20/17 [Vitamin B-12] Furosemide [Lasix] 40 mg PO DAILY 09/07/15 04/20/17 Gluc/Samy-MSM#1/C/Heber/Slava/Bor 1 each PO DAILY 09/07/15 04/20/17 [Osteo Bi-Flex Caplet] Insulin Glargine [Lantus] 15 unit SQ QAM 09/07/15 04/20/17 Propafenone [Rhythmol] 150 mg PO BID 09/07/15 04/20/17 Warfarin [Coumadin] 2.5 mg PO SUTUWETHFRSA 09/07/15 04/20/17 Warfarin [Coumadin] 5 mg PO MO 09/07/15 04/20/17 Calcium Acetate 667 mg PO TID 04/13/17 04/20/17 Cilostazol [Pletal] 100 mg PO BID 04/13/17 04/20/17 Previous Rx's Medication Instructions Recorded Gabapentin [Neurontin] 300 mg PO HS #30 capsule 04/28/17 Omeprazole [PriLOSEC] 40 mg PO DAILY@0630 capsule. 04/28/17 OxyCODONE/APAP 10/325 [Percocet 1 each PO Q6HR PRN #12 tablet 04/28/17 10/325 MG] Renal Vitamin [Renal Caps Softgel] 1 mg PO DAILY capsule 04/28/17 Warfarin perPT [Coumadin perPT] 1 each PO DAILY@1800 PRN each 04/28/17 cephALEXin [Keflex] 500 mg PO TID #15 capsule 04/28/17 clonazePAM [Klonopin] 0.5 mg PO HS #5 tablet 04/28/17 Allergies Allergy/AdvReac Type Severity Reaction Status Date / Time Sulfa (Sulfonamide Allergy Rash Verified 04/30/17 09:49 Antibiotics) All systems ED: reviewed and negative except as stated. Review of Systems: As Per HPI Constitutional: Denies: fever, chills ENT ED: Denies: congestion Cardiovascular: Denies: chest pain, palpitations Respiratory: Denies: cough, dyspnea Gastrointestinal: Denies: abdominal pain, nausea, vomiting, diarrhea Musculoskeletal: Reports: other (LUE swelling, redness, pain, ) Integumentary: Reports: rash (LUE is swelling, wound on dorsal aspect and antecubital fossa. ), other Past Medical History - Past Medical History Attestation: Yes The following information was validated with the patient. Medical history: Reports: atrial fibrillation, COPD, coronary artery disease, diabetes, GERD, hyperlipidemia, hypertension, myocardial infarction, other Surgical history: Reports: bariatric surgery, cholecystectomy, pacemaker/AICD, other Psychiatric history: Reports: no psych history, anxiety - Social History Smoking Status: Never smoker Smokeless Tobacco Status: No Alcohol use: Reports: none Drug use: Reports: none Physical Exam - General Limitations: no limitations General appearance: in no apparent distress, other - Head Head exam: atraumatic, normocephalic, normal inspection - Eye Eye exam: Present: normal appearance, PERRL, EOMI - ENT ENT exam: normal exam, normal oropharynx, mucous membranes moist - Neck Neck exam: Present: normal inspection, full ROM, trachea midline. Absent: tenderness - Chest Chest inspection: Present: other (Patient has a port on the right anterior chest wall does not appear erythematous or infected.). Absent: symmetric chest wall rise, tenderness - Respiratory Respiratory exam: Present: normal lung sounds bilaterally. Absent: respiratory distress, wheezes - Cardiovascular Cardiovascular exam: Present: regular rate, normal rhythm, normal heart sounds, +S1, +S2 - Abdominal Exam Abdominal exam: Present: soft, Non-Tender, normal bowel sounds - Extremities Exam Extremities exam: Present: full ROM, normal capillary refill. Absent: tenderness - Expanded Upper Extremity Exam Forearm/Wrist exam: Present: full ROM, tenderness (To the left upper extremity mostly over the forearm secondary to a wound and edema ), swelling (The left forearm ), erythema, other (Patient has a large wound on the dorsal aspect of the medial forearm that appears to have a black almost necrotic tissue with no drainage. Patient also has multiple small blisters over the left arm. Capillary refill is brisk. ) - Expanded Lower Extremity Exam Neurovascular/Tendon exam: Present: normal capillary refill. Absent: pulse deficit, motor deficit, sensory deficit Gait: not tested/not observed - Back Exam Back exam: Present: normal inspection. Absent: tenderness - Neurological Exam Neurological exam: Present: alert, oriented X3 - Psychiatric Psychiatric exam: Present: normal affect, normal mood - Skin Skin exam: Present: rash, erythema (left forearm), other Course Course Narrative: Patient had an arterial imaging study done on 04/30/18 which was a Doppler of the left upper extremity which showed an occluded AV fistula. It appears that the patient was discharged from the hospital on 04/28/2018 in which she underwent treatment for cellulitis of his left upper extremity and was initiated on dialysis through his chest port sites. He is given IV ceftriaxone and discharged home on Rocephin. In early April 2017 the patient [facility] and left antecubital AV fistula, prior to all of the events. Plan is to order CT with contrast of the left upper extremity and will also order basic labs as well as with labs for this patient to rule out any cellulitis, gangrene osteomyelitis infection going on and will consult with vascular surgery. Patient agrees with this plan. - Reevaluation(s) Reevaluation #1: Blood cultures were ordered. She will be initiated on vancomycin and cefepime antibiotic to cover for any possible gangrene pseudomonas infection. Time: 20:29 Reevaluation #2: I spoke with the vascular surgeon special education resource room teacher and he agrees with the current plan of action of the antibiotics broad spectrum. Discusses as the patient's vital signs are stable and this has been going on for the past 3 days patient should be admitted to the hospital [facility] with a consult to Dr. Baez in the morning. Discussed that patient does have movement of his fingers with 4/5 strength, radial pulses palpable, and capillary refill brisk <2 seconds. Discussed concerns for infection requiring surgical debridement due to possible gangrenous infection he states that due to patient being stable and this having been going on for the past 3 days is indicated with the patient the hospitalist [facility] with a consult to Dr. Miner in the morning. Patient does not require transfer to a different facility at this time. Time: 00:08 Vital Signs Temperature 98.0 F 05/10/17 19:32 Pulse Rate 88 05/10/17 19:32 Respiratory Rate 18 05/10/17 19:32 Blood Pressure 125/68 05/10/17 19:32 O2 Sat by Pulse Oximetry 95 05/10/17 19:32 Temperature 97.3 F L 05/11/17 02:04 Pulse Rate 79 05/11/17 02:04 Respiratory Rate 14 05/11/17 02:04 Blood Pressure 135/66 05/11/17 02:04 O2 Sat by Pulse Oximetry 98 05/11/17 02:04 Oxygen Delivery Oxygen Delivery Nasal Cannula Medical Decision Making - Medical Records Medical records reviewed: Yes I reviewed the patient's medical records. - Lab Data Lab results reviewed: Yes I reviewed the patient's lab results. Result diagrams: 05/10/17 20:06 05/10/17 20:06 Lab Results 05/10/17 05/10/17 05/10/17 Range/Units 20:06 20:06 20:06 WBC 10.1 (4.3-11.1) K/mcL RBC 3.11 L (4.19-5.50) M/mcL Hgb 9.3 L (12.9-16.9) g/dL Hct 30.3 L (37.5-50.1) % MCV 97.4 (83.0-100.0) fL MCH 29.9 (28.0-33.3) pg MCHC 30.7 L (31.6-35.5) g/dL RDW 13.9 (11.5-14.5) % Plt Count 437 H (140-400) K/mcL MPV 9.5 (9.4-12.4) fL Immature Gran % 0.6 (0-4) % Seg Neutrophils % 78.4 % Lymphocytes % 10.9 % Monocytes % 8.0 % Eosinophils % 1.3 % Basophils % 0.8 % Neutrophils # 8.0 (1.6-8.9) K/mcL Lymphocytes # 1.1 (0.6-4.6) K/mcL Monocytes # 0.8 (0.0-1.3) K/mcL Eosinophils # 0.1 (0.0-0.6) K/mcL Basophils # 0.1 (0.0-0.2) K/mcL Nucleated RBCs/100 WBC 0.2 H (0) /100 WBC ESR >= 130 H (0-10) mm/hr PT (9.4-12.1) Seconds INR APTT (26.0-36.0) Seconds Sodium 137 (136-145) mEq/L Potassium 3.9 (3.5-5.1) mEq/L Chloride 97 L (98-107) mEq/L Carbon Dioxide 27 (23-29) mEq/L BUN 24 H (8-23) mg/dL Creatinine 3.50 H (0.70-1.30) mg/dL Est GFR ( Amer) 21 L (> 60) Est GFR (Non-Af Amer) 17 L (> 60) BUN/Creatinine Ratio 7 (6-26) Glucose 96 (70-105) mg/dL Calculated Osmolality 288 (280-300) Lactic Acid (0.5-2.2) mmol/L Calcium 7.5 L (8.6-10.3) mg/dL C-Reactive Protein (Less than 10) mg/L 05/10/17 05/10/17 05/10/17 Range/Units 20:06 20:06 20:06 WBC (4.3-11.1) K/mcL RBC (4.19-5.50) M/mcL Hgb (12.9-16.9) g/dL Hct (37.5-50.1) % MCV (83.0-100.0) fL MCH (28.0-33.3) pg MCHC (31.6-35.5) g/dL RDW (11.5-14.5) % Plt Count (140-400) K/mcL MPV (9.4-12.4) fL Immature Gran % (0-4) % Seg Neutrophils % % Lymphocytes % % Monocytes % % Eosinophils % % Basophils % % Neutrophils # (1.6-8.9) K/mcL Lymphocytes # (0.6-4.6) K/mcL Monocytes # (0.0-1.3) K/mcL Eosinophils # (0.0-0.6) K/mcL Basophils # (0.0-0.2) K/mcL Nucleated RBCs/100 WBC (0) /100 WBC ESR (0-10) mm/hr PT 56.5 H* (9.4-12.1) Seconds INR 5.1 H* APTT 52.7 H (26.0-36.0) Seconds Sodium (136-145) mEq/L Potassium (3.5-5.1) mEq/L Chloride (98-107) mEq/L Carbon Dioxide (23-29) mEq/L BUN (8-23) mg/dL Creatinine (0.70-1.30) mg/dL Est GFR ( Amer) (> 60) Est GFR (Non-Af Amer) (> 60) BUN/Creatinine Ratio (6-26) Glucose (70-105) mg/dL Calculated Osmolality (280-300) Lactic Acid 1.2 (0.5-2.2) mmol/L Calcium (8.6-10.3) mg/dL C-Reactive Protein 246 H (Less than 10) mg/L - Radiology Data Radiology results reviewed: Yes I reviewed the patient's radiology results. Chest X-Ray 05/10/17 20:20 IMPRESSION: Shallow inspiration. No acute process. D/ / Shree Lam MD / Shree Lam MD Interpreting Provider: Shree Lam MD Forearm CT 05/10/17 21:17 IMPRESSION: 1. Very limited examination. 2. Suggestion of cellulitis along the radial aspect of the proximal forearm. Again, no definite focal fluid collection is identified to suggest abscess, but contrast resolution is very low. D/ / Ronnie Srinivasan MD / Ronnie Srinivasan MD Interpreting Provider: Ronnie Srinivasan MD - EKG Data EKG #1 EKG attestation: Yes I reviewed and interpreted this EKG. EKG results narrative: EKG done at 20:49 shows A. fib at a rate of 96 bpm. Normal axis. QRS is 158, QT is 376 and QTc is 430 these are within normal limits. Patient has a right bundle branch block patient does have what may be ST elevation in lead III, however this is improved when compared to EKG done on 04/30/2017. Attestation Statement - Attestation Attestation: I, Renato Slater DO, examined this patient [id number] and my medical decision-making was reviewed with Dr. Nathanael Willis, Resident Physician. I agree with the documented findings, disposition and treatment plan as described except to the extent set forth below. Please see my progress notes for details. 76-year-old male presents to emergency room for evaluation of wound his left arm. Patient had AV fistula placed at the beginning of April. Since then he has had progressive changes in color deterioration to the skin of the left upper extremity. He had confirmatory imaging and modalities completed showing complete occlusion to the fistula formation. Patient does have dusky colored lower extremity with good capillary refill in stable pulses. Clinical concern for arterial occlusion at this point the patient is concerning for cytological presentation to the skin and deterioration. Because of his dialysis patient is to be evaluated for gangrenous light presentation. CT of the arm does not show any acute signs of free air but does show cellulitic-like presentation. Patient started on vancomycin and cefepime covering for cellulitis and gangrene. Patient also had laboratory workup completed. Patient did receive dialysis today without any complications followed by the [facility] dialysis team here. Patient otherwise is resting comfortably in the bed denying chest pain shortness of breath fevers chills nausea vomiting or diarrhea. Denies any headache or vision change. Main complaint is the left upper extremity discomfort. After workup was completed and recommended that the patient is admitted for further IV antibiotics and evaluation by the vascular team and his operations support representative. Patient understands this is comfortable with the plan. No other concerns or issues noted. See detailed documentation of the physical exam, medical intervention, medical decision-making and disposition and the resident physician's note. No critical care applied to This patient's treatment course here in the emergency room. Admission process to be completed at this time. Patient is significantly elevated ESR and C-reactive protein. This is clinically concerning for necrotizing fasciitis despite the lack of free air on exam. Patient also has elevated INR of 5.1. The hospitalist was informed of all these issues and is happy to complete the treatment course here in the emergency room.
[2017-05-10 20:18] LABS: Basophils # 0.1 K/mcL (0.0-0.2); Basophils % 0.8 %; Eosinophils # 0.1 K/mcL (0.0-0.6); Eosinophils % 1.3 %; Hematocrit 30.3 % (37.5-50.1); Hemoglobin 9.3 g/dL (12.9-16.9); Immature Granulocytes % 0.6 % (0-4); Lymphocytes # 1.1 K/mcL (0.6-4.6); Lymphocytes % 10.9 %; Mean Corpuscular HGB Conc 30.7 g/dL (31.6-35.5); Mean Corpuscular Hemoglobin 29.9 pg (28.0-33.3); Mean Corpuscular Volume 97.4 fL (83.0-100.0); Mean Platelet Volume 9.5 fL (9.4-12.4); Monocytes # 0.8 K/mcL (0.0-1.3); Nucleated Red Blood Cells 0.2 /100 WBC (0); Platelet Count 437 K/mcL (140-400); Red Blood Count 3.11 M/mcL (4.19-5.50); Red Cell Distribution Width 13.9 % (11.5-14.5); Segmented Neutrophils % 78.4 %
[2017-05-10] MEDS ORDERED: Cefepime HCl 1,000 MG in Water for inj. (sterile) 10 ML IVP STA (20:23)
[2017-05-10 20:28] LABS: Activated Partial Thrombo Time 52.7 Seconds (26.0-36.0)
[2017-05-10 20:31] LABS: INR 5.1; Prothrombin Time 56.5 Seconds (9.4-12.1)
[2017-05-10 20:34] LABS: Calcium 7.5 mg/dL (8.6-10.3); Potassium 3.9 mEq/L (3.5-5.1)
[2017-05-10] MEDS ORDERED: *HR* Morphine 2 MG/ML SYRINGE IVP ONE (20:56)
[2017-05-10] MEDS ORDERED: Vancomycin 1,250 MG in D5% in Water 250 ML IVPB SCH (21:00)
[2017-05-10] MEDS ORDERED: Vancomycin 1,250 MG in D5% in Water 250 ML IVPB ONE (21:15)
[2017-05-11] MEDS ORDERED: D5% in Water 1,000 ML IVC PRN (02:09)
[2017-05-11] MEDS ORDERED: Dextrose Gel 15 GM/37.5 ML TUBE PO PRN ×2 (02:09)
[2017-05-11] MEDS ORDERED: Ondansetron 4 MG/2 ML VIAL IVP PRN (02:09)
[2017-05-11] MEDS ORDERED: Naloxone 0.4 MG/ML INJ IVP PRN (02:09)
[2017-05-11] MEDS ORDERED: Acetaminophen 325 MG TABLET PO PRN (02:09)
[2017-05-11] MEDS ORDERED: *HR* Dextrose 50 % in Water (Syg) 50 ML SYRINGE IVP PRN (02:09)
[2017-05-11] MEDS ORDERED: *HR* Morphine 2 MG/ML SYRINGE IVP PRN (02:12)
[2017-05-11] MEDS ORDERED: Ipratropium/Albuterol Neb 3 ML IH PRN (02:12)
--- NOTE | 2017-05-11 02:17 | Internal Med History&Physical ---
Date of Encounter: 05/11/17 Time of Encounter: 02:14 Assessment and Plan (1) Cellulitis of forearm, left Current visit: Yes Status: Acute Severe necrotic left forearm cellulitis/possible gangrene Continue Merrem and vancomycin Vascular surgery consulted Blood cultures, IV fluids, nothing by mouth for possible surgical procedure Protonix for GI prophylaxis and Coumadin for DVT prophylaxis. Patient will be admitted as inpatient, expected to stay more than 2 midnights. Full code. Time spent on this admission 40 minutes (2) Atrial fibrillation Current visit: No Status: Chronic Stable on Rythmol Hold Coumadin due to supratherapeutic INR Qualifiers: Atrial fibrillation type: paroxysmal Qualified Code(s): I48.0 - Paroxysmal atrial fibrillation (3) HTN (hypertension) Current visit: No Status: Chronic stable Qualifiers: Hypertension type: essential hypertension Qualified Code(s): I10 - Essential (primary) hypertension (4) CAD (coronary artery disease) Current visit: No Status: Chronic Qualifiers: Coronary Disease-Associated Artery/Lesion type: unspecified vessel or lesion type [place] vs. transplanted heart: [place] heart Associated angina: without angina Qualified Code(s): I25.10 - Atherosclerotic heart disease of [place] coronary artery without angina pectoris (5) CVA (cerebral vascular accident) Current visit: No Status: Acute Qualifiers: CVA mechanism: unspecified Qualified Code(s): I63.9 - Cerebral infarction, unspecified (6) Complication of AV dialysis fistula Current visit: No Status: Acute Qualifiers: Encounter type: initial encounter Qualified Code(s): T82.9XXA - Unspecified complication of cardiac and vascular prosthetic device, implant and graft, initial encounter (7) ESRD (end stage renal disease) on dialysis Current visit: No Status: Acute consult nephrology (8) Diabetes Current visit: No Status: Chronic Continue insulin sliding scale Qualifiers: Diabetes mellitus type: type 2 Diabetes mellitus complication status: without complication Diabetes mellitus termite treater insulin use: with termite treater use Qualified Code(s): E11.9 - Type 2 diabetes mellitus without complications ; Z79.4 - FDC (current) use of insulin; Z79.4 - FDC (current) use of insulin; Z79.4 - termite treater (current) use of insulin; Z79.4 - termite treater ( current) use of insulin Internal Medicine - H&P: HPI Chief complaint: Left arm pain Admitted From: Emergency Dept History of present illness: Mr. Nicole is a 76 year old male with a past medical history of end-stage renal disease on hemodialysis, ESBL UTI, atrial fibrillation on Coumadin and Rythmol, CAD status post stents, diabetes type 2 insulin-dependent, came to the emergency room complaining of severe left upper extremity pain. The patient was discharged at the end of last year where he was treated for cellulitis in the left upper extremity after having an AV fistula surgery performed by Dr. Ambrose. The area looks necrotic/eschar-like, dark, swollen. CT scan was performed showing left radial cellulitis in the proximal forearm. Chest x-ray was unremarkable. CRP is 246 creatinine 3.2, hemoglobin 9.3, INR is 5.1, platelets 432. The ER physician spoke with Dr. Jones from the vascular surgery service and ordered to evaluate the possibility of transferring this patient to another hospital but admission to the hospital was recommended. The patient was given vancomycin and cefepime, Merrem was given as the patient has history of ESBL in urine. Past Med Surg Social Fam HX - Past Medical History Medical history: atrial fibrillation (On Coumadin and Rythmol), COPD (Not oxygen dependent), coronary artery disease (Status post stents), CVA, diabetes ( Insulin-dependent), GERD, hyperlipidemia, hypertension, myocardial infarction, other (End-stage renal disease on hemodialysis, UTI with ESBL, anxiety, neuropathy) Psychiatric history: no psych history, anxiety - Past Surgical History Surgical History: bariatric surgery, cholecystectomy, pacemaker/AICD (Pacemaker only), other (Left radial artery thromboendarterectomy with cephalic vein patch angioplasty and left antecubital AV fistula, back surgery) - Social History Smoking Status: Never smoker Smokeless Tobacco Status: No Alcohol use: none Drug use: none - Family History Mother Family Member Ethnicity: Non- Living Status: Hx Family Cardiac Disorders: Yes (SD, HTN) Hx Family Endocrine Disorder: Yes (DM) Brother Family Member Ethnicity: Non- Living Status: Sister Family Member Ethnicity: Non- Living Status: Still Living Hx Family Endocrine Disorder: Yes (DM) Father Family Member Ethnicity: Non- Living Status: Hx Family Cardiac Disorders: Yes (Stroke) Hx Family Respiratory Disorders: No Hx Family Cancer: No Hx Family GI Disorders: No Hx Family Endocrine Disorder: No Hx Family Neuromuscular Disorders: No Hx Family Neurologic Disorders: No Hx Family HEENT Disorders: No Hx Family Autoimmune Disorders: No - Additional Family History Additional family history: Mother with myocardial infarction and diabetes, father with CVA Internal Medicine - H&P: Meds Aspirin 81 mg PO DAILY 09/07/15 [History] Atorvastatin [Lipitor] 40 mg PO DAILY 09/07/15 [History] Calcitriol [Rocaltrol] 0.25 mcg PO BID 09/07/15 [History] Calcium Carbonate/Vitamin D3 [Calcium 500-Vit D3 400 Tablet] 1 each PO DAILY 11/15 [History] Cyanocobalamin (Vitamin B-12) [Vitamin B-12] 500 mcg SL DAILY 09/07/15 [History] Furosemide [Lasix] 40 mg PO DAILY 09/07/15 [History] Gluc/Samy-MSM#1/C/Heber/Slava/Bor [Osteo Bi-Flex Caplet] 1 each PO DAILY 09/07/15 [ History] Insulin Glargine [Lantus] 15 unit SQ QAM 09/07/15 [History] Propafenone [Rhythmol] 150 mg PO BID 09/07/15 [History] Warfarin [Coumadin] 2.5 mg PO SUTUWETHFRSA 09/07/15 [History] Warfarin [Coumadin] 5 mg PO MO 09/07/15 [History] Calcium Acetate 667 mg PO TID 04/13/17 [History] Cilostazol [Pletal] 100 mg PO BID 04/13/17 [History] Gabapentin [Neurontin] 300 mg PO HS #30 capsule 04/28/17 [Rx] Omeprazole [PriLOSEC] 40 mg PO DAILY@0630 capsule. 04/28/17 [Rx] OxyCODONE/APAP 10/325 [Percocet 10/325 MG] 1 each PO Q6HR PRN #12 tablet [Rx] Renal Vitamin [Renal Caps Softgel] 1 mg PO DAILY capsule 04/28/17 [Rx] Warfarin perPT [Coumadin perPT] 1 each PO DAILY@1800 PRN each 04/28/17 [Rx] cephALEXin [Keflex] 500 mg PO TID #15 capsule 04/28/17 [Rx] clonazePAM [Klonopin] 0.5 mg PO HS #5 tablet 04/28/17 [Rx] 3 Allergy/AdvReac Type Severity Reaction Status Date / Time Sulfa (Sulfonamide Allergy Rash Verified 04/30/17 09:49 Antibiotics) All Systems PM: A 10-system review of systems was performed and is negative for pertinent findings except as documented above in the HPI. Review of systems: Severe pain, chills, no chest pain or shortness of breath, no abdominal pain, other systems out of the 10 reviewed were negative - Constitutional Vitals: Temp Pulse Resp BP Pulse Ox 97.3 F L 79 14 135/66 98 05/11/17 02:04 05/11/17 02:04 05/11/17 02:04 05/11/17 02:04 05/11/17 02:04 General appearance: Present: A&O X 3 - Head Head exam: Present: atraumatic, normocephalic - Eye Eye exam: Present: PERRL, conjuntiva pink, sclera anicteric Pupils: Present: PERRL Additional comments: The patient appears ill and toxic - Neck Neck exam general surgery: Present: supple, trachea midline. Absent: lymphadenopathy - Respiratory Respiratory exam: Present: CTAB. Absent: accessory muscle use, rales, rhonchi, wheezes - Cardiovascular Cardiovascular exam: Present: RRR, +S1, +S2. Absent: diastolic murmur, gallop, rubs, systolic murmur - GI/Abdominal GI/Abdominal exam: Present: normal bowel sounds, soft, no peritoneal signs. Absent: distended, tenderness - Extremities Exam Extremities exam: Present: warm, radial pulses palpable and symmetrical. Absent : calf tenderness, cyanotic, pedal edema - Neurological Exam Neurological exam: Present: CN II-XII intact, oriented X3, no focal deficits. Absent: pronater drift, facial droop, speech deficit - Skin Skin exam: Present: dry. Absent: intact Additional comments: Left forearm necrotic in the anterior area with surrounding swelling and darkening of the skin, no crepitus, large area of infection Internal Med - H&P Results - Labs CBC & Chem 7: 05/10/17 20:06 05/10/17 20:06
[2017-05-11] MEDS ORDERED: Vancomycin 1,250 MG in D5% in Water 250 ML IVPB SCH (03:00)
[2017-05-11] MEDS: 0.9 % Sodium Chloride 1,000 ML IVC SCH ×2 (03:09→13:25)
[2017-05-11] MEDS: *HR* Morphine 2 MG/ML SYRINGE IVP PRN ×3 (05:34→20:25)
[2017-05-11] MEDS ORDERED: Insulin LISPRO 300 UNITS/3 ML VIAL SQ SCH ×3 (06:00→21:00)
[2017-05-11 07:43] LABS: Hematocrit 28.8 % (37.5-50.1); Hemoglobin 8.8 g/dL (12.9-16.9); Mean Corpuscular HGB Conc 30.6 g/dL (31.6-35.5); Mean Corpuscular Hemoglobin 30.1 pg (28.0-33.3); Mean Corpuscular Volume 98.6 fL (83.0-100.0); Mean Platelet Volume 9.8 fL (9.4-12.4); Platelet Count 365 K/mcL (140-400); Red Blood Count 2.92 M/mcL (4.19-5.50)
[2017-05-11 07:53] LABS: Calcium 7.5 mg/dL (8.6-10.3); Potassium 3.9 mEq/L (3.5-5.1)
[2017-05-11] MEDS ORDERED: Meropenem 1,000 MG in Water for inj. (sterile) 20 ML 10 ML IVP SCH ×2 (08:00→18:00)
[2017-05-11] MEDS ORDERED: Aspirin 81 MG TAB.CHEW PO SCH (09:00)
[2017-05-11] MEDS ORDERED: Pantoprazole 40 MG VIAL IVP SCH (09:00)
[2017-05-11] MEDS ORDERED: Meropenem 500 MG in Water for inj. (sterile) 20 ML 10 ML IVP ONE (09:41)
[2017-05-11] MEDS: *HR* OxyCODONE Immed Rel 5 MG TABLET PO PRN ×2 (10:29→20:25)
--- NOTE | 2017-05-11 10:30 | Internal Med Progress Note ---
Date of Encounter: 05/11/17 Time of Encounter: 08:00 - Constitutional Vitals: Temp Pulse Resp BP Pulse Ox 98.6 F 89 18 118/62 93 05/11/17 09:37 05/11/17 09:37 05/11/17 09:37 05/11/17 09:37 05/11/17 09:37 General appearance: Present: A&O X 3 Internal Medicine: Result - Labs CBC & Chem 7: 05/11/17 07:14 05/11/17 07:14 Labs: Short CBC 05/11/17 Range/Units 07:14 WBC 7.8 (4.3-11.1) K/mcL Hgb 8.8 L (12.9-16.9) g/dL Hct 28.8 L (37.5-50.1) % Plt Count 365 (140-400) K/mcL BMP 05/11/17 07:14 Sodium 136 Potassium 3.9 Chloride 99 Carbon Dioxide 25 BUN 32 H Creatinine 4.31 H Glucose 113 H Calcium 7.5 L - ABG Interpretation ABG results: PT/INR, D-dimer PT 56.5 Seconds (9.4-12.1) H* 05/10/17 20:06 Consult Discharge Plan - Plan Referrals: Jace Will DO [Primary Care Provider] -
--- NOTE | 2017-05-11 10:32 | Infectious Disease Consult ---
Date of Encounter: 05/11/17 Time of Encounter: 10:31 Assessment and Plan (1) Cellulitis of forearm, left Status: Acute Assessment and plan: Causative organism not clear. No obvious source to culture No associated sirs criteria Discussed with Dr. Ambrose, might need to repeat imaging to see if there is cellulitis versus ischemia versus other. CT scan that was done was less than optimal Started the patient on broad-spectrum antibiotics including vancomycin and Zosyn : Goal vancomycin trough around 10-15 Dose adjust based on creatinine clearance We'll ask pharmacy to help us with the dosing (2) Complication of AV dialysis fistula Status: Acute Assessment and plan: Ultrasound done on 04/30/2017 and the emergency department reveals blood clot in the AV fistula. We'll discuss with Dr. Ambrose. Qualifiers: Encounter type: initial encounter Qualified Code(s): T82.9XXA - Unspecified complication of cardiac and vascular prosthetic device, implant and graft, initial encounter (3) ESRD (end stage renal disease) on dialysis Status: Acute (4) Atrial fibrillation Status: Chronic Qualifiers: Atrial fibrillation type: paroxysmal Qualified Code(s): I48.0 - Paroxysmal atrial fibrillation (5) CAD (coronary artery disease) Status: Chronic Qualifiers: Coronary Disease-Associated Artery/Lesion type: unspecified vessel or lesion type [place] vs. transplanted heart: [place] heart Associated angina: without angina Qualified Code(s): I25.10 - Atherosclerotic heart disease of [place] coronary artery without angina pectoris (6) ESRD (end stage renal disease) Status: Chronic Infectious Disease HPI - Data of Consult Patient: new to practice Consult date: 05/11/17 Requesting Physician: Aguila Tolentino MD Primary Care Provider: Jace Will DO Family Provider: Jace Will DO - Consult Narrative Reason for consult: cellulitis History of present illness: Mr. Nicole is a 76 year old male Patient is a 76-year-old gentleman admitted to [place] on 05/10/2017 with left arm pain and left arm cellulitis. We are consulted on 05/11/2017 for necrotic infection of the left arm AV fistula. Patient is 76-year-old gentleman with extensive past medical history mentioned below including end-stage renal disease on hemodialysis, atrial fibrillation on Coumadin, coronary artery disease, diabetes mellitus type 2 who came to the emergency department on 05/10/17 complaining of severe left upper extremity pain. Briefly, On 04/13/17 patient underwent a left radial artery thromboendarterectomy with cephalic vein patch angioplasty and left antecubital aVF by Dr. Ambrose. On 04/20/2017 patient had pain and swelling of the left upper extremity and was admitted to [facility] for evaluation. At that time patient was afebrile is presenting the UVC was 9.4 thousand at that time patient was treated with Rocephin and discharged home on Keflex 5 days. Patient was seen on 04/30/2017 in the emergency department with pain and swelling in the left upper extremity. There was apparently ecchymosis and unroofed bullae. Patient was discharged home to follow-up with Dr. richards. An ultrasound was done and it revealed the left upper extremity arteriovenous fistula to be occluded. Patient apparently was a sunken of rehabilitation because of deconditioning and the pain and swelling in his arm got worse so he came back to the emergency department. Patient denied any headache no chest pain or shortness of breath. Denies any nausea or vomiting. Denies any diarrhea he. Patient denies any fevers or chills or night sweats. Patient tells me he usually resides with his . No animals at home. No Or Bites. Patient has not had any travel. Since admission, patient has been afebrile with MAXIMUM TEMPERATURE of 98.6 Fahrenheit, normal heart rate and a presenting WBC of 10,000 with normal differential. Patients ESR was checked and it was over 130 and a CRP of 246.. Patient also has Coumadin toxicity with an INR of 5.1. CT of the forearm on the left revealed cellulitis along the radial aspect of the proximal forearm with no definite local fluid collection to suggest abscess but the exam was very limited and the contrast resolution was very low. Patient was started on empiric vancomycin, meropenem and we were consulted to evaluate the patient and make further recommendations. CC: Aguila Tolentino MD Past Med Surg Social Fam HX - Past Medical History Medical history: atrial fibrillation, COPD, coronary artery disease, diabetes, GERD, hyperlipidemia, hypertension, myocardial infarction, other Psychiatric history: no psych history, anxiety - Past Surgical History Surgical History: bariatric surgery, cholecystectomy, pacemaker/AICD, other - Social History Smoking Status: Never smoker Smokeless Tobacco Status: No Alcohol use: none Drug use: none - Family History Mother Family Member Ethnicity: Non- Living Status: Hx Family Cardiac Disorders: Yes ([place], HTN) Hx Family Endocrine Disorder: Yes (DM) Brother Family Member Ethnicity: Non- Living Status: Sister Family Member Ethnicity: Non- Living Status: Still Living Hx Family Endocrine Disorder: Yes (DM) Father Family Member Ethnicity: Non- Living Status: Hx Family Cardiac Disorders: Yes (Stroke) Hx Family Respiratory Disorders: No Hx Family Cancer: No Hx Family GI Disorders: No Hx Family Endocrine Disorder: No Hx Family Neuromuscular Disorders: No Hx Family Neurologic Disorders: No Hx Family HEENT Disorders: No Hx Family Autoimmune Disorders: No Infectious Disease-CN:Meds Aspirin 81 mg PO DAILY 09/07/15 [History] Atorvastatin [Lipitor] 40 mg PO HS 09/07/15 [History] Calcitriol [Rocaltrol] 0.25 mcg PO BID 09/07/15 [History] Calcium Carbonate/Vitamin D3 [Calcium 500-Vit D3 400 Tablet] 1 each PO DAILY 11/15 [History] Cyanocobalamin (Vitamin B-12) [Vitamin B-12] 500 mcg PO DAILY 09/07/15 [History] Furosemide [Lasix] 40 mg PO DAILY 09/07/15 [History] Gluc/Samy-MSM#1/C/Heber/Slava/Bor [Osteo Bi-Flex Caplet] 1 each PO DAILY 09/07/15 [ History] Propafenone [Rhythmol] 150 mg PO BID 09/07/15 [History] Warfarin [Coumadin] 2.5 mg PO SUTUWETHFRSA 09/07/15 [History] Calcium Acetate 667 mg PO TID 04/13/17 [History] Cilostazol [Pletal] 100 mg PO BID 04/13/17 [History] Gabapentin [Neurontin] 300 mg PO HS #30 capsule 04/28/17 [Rx] Omeprazole [PriLOSEC] 40 mg PO DAILY@0630 capsule.dr 04/28/17 [Rx] Renal Vitamin [Renal Caps Softgel] 1 mg PO DAILY capsule 04/28/17 [Rx] clonazePAM [Klonopin] 0.5 mg PO HS #5 tablet 04/28/17 [Rx] Polyethylene Glycol 3350 [MiraLAX] 17 gm PO DAILY 05/11/17 [History] Warfarin [Coumadin] 4 mg PO DAILY 05/11/17 [History] Wheat Dextrin [Benefiber] 1 each PO DAILY 05/11/17 [History] 3 Allergy/AdvReac Type Severity Reaction Status Date / Time Sulfa (Sulfonamide Allergy Rash Verified 04/30/17 09:49 Antibiotics) Review of systems: 10 point review of systems done, negative for what mentioned in the history of present illness Exam - Constitutional Vitals: Temp Pulse Resp BP Pulse Ox 98.6 F 89 18 118/62 93 05/11/17 09:37 05/11/17 09:37 05/11/17 09:37 05/11/17 09:37 05/11/17 09:37 General appearance: disheveled, no acute distress - Head Head exam: Present: atraumatic, normocephalic - ENT ENT exam: Present: mucous membranes dry Additional comments: No oral lesions - Neck Neck exam: Present: full ROM. Absent: meningismus - Respiratory Respiratory exam: Present: CTAB. Absent: rhonchi, wheezes - Cardiovascular Cardiovascular exam: Present: RRR, +S1, +S2 - GI/Abdominal GI/Abdominal exam: Present: normal bowel sounds, soft. Absent: tenderness - Extremities Exam Additional comments: Patient has on the left arm black necrotic tissue around the fistula area. There is some bullae and some erythema. There is no drainage there is no purulence there is no marked fluctuance. - Neurological Exam Neurological exam: Present: alert, oriented X3, no focal deficits - Psychiatric Psychiatric exam: Present: flat affect - Skin Skin exam: Present: normal color. Absent: rash Infectious Disease CN: Results - Labs CBC & Chem 7: 05/11/17 07:14 05/11/17 07:14 Consult Discharge Plan - Plan Referrals: Jace Will DO [Primary Care Provider] -
[2017-05-11 12:09] LABS: INR 3.4; Prothrombin Time 38.1 Seconds (9.4-12.1)
--- NOTE | 2017-05-11 13:18 | Discharge Summary ---
<Sae Herrera - Last Filed: 05/11/17 18:45> Date of Encounter: 05/11/17 Time of Encounter: 08:00 - Discharge Diagnosis (1) Atrial fibrillation Priority: Secondary Status: Chronic Qualifiers: Atrial fibrillation type: paroxysmal Qualified Code(s): I48.0 - Paroxysmal atrial fibrillation (2) Diabetes Priority: Secondary Status: Chronic Qualifiers: Diabetes mellitus type: type 2 Diabetes mellitus complication status: without complication Diabetes mellitus fpc insulin use: with fpc use Qualified Code(s): E11.9 - Type 2 diabetes mellitus without complications ; Z79.4 - nursing home (current) use of insulin; Z79.4 - nursing home (current) use of insulin; Z79.4 - rn long term care (current) use of insulin; Z79.4 - nursing home ( current) use of insulin (3) HTN (hypertension) Priority: Secondary Status: Chronic Qualifiers: Hypertension type: essential hypertension Qualified Code(s): I10 - Essential (primary) hypertension (4) CAD (coronary artery disease) Priority: Secondary Status: Chronic Qualifiers: Coronary Disease-Associated Artery/Lesion type: unspecified vessel or lesion type [place] vs. transplanted heart: [place] heart Associated angina: without angina Qualified Code(s): I25.10 - Atherosclerotic heart disease of [place] coronary artery without angina pectoris (5) CVA (cerebral vascular accident) Priority: Secondary Status: Acute Qualifiers: CVA mechanism: unspecified Qualified Code(s): I63.9 - Cerebral infarction, unspecified (6) ESRD (end stage renal disease) Priority: Secondary Status: Chronic (7) Complication of AV dialysis fistula Priority: Primary Status: Acute Qualifiers: Encounter type: initial encounter Qualified Code(s): T82.9XXA - Unspecified complication of cardiac and vascular prosthetic device, implant and graft, initial encounter (8) Cellulitis Priority: Secondary Status: Acute Qualifiers: Site of cellulitis: extremity Site of cellulitis of extremity: upper extremity Laterality: left Qualified Code(s): L03.114 - Cellulitis of left upper limb - Discharge Medications Home Medications: Aspirin 81 mg PO DAILY 09/07/15 [History] Atorvastatin [Lipitor] 40 mg PO HS 09/07/15 [History] Calcitriol [Rocaltrol] 0.25 mcg PO BID 09/07/15 [History] Calcium Carbonate/Vitamin D3 [Calcium 500-Vit D3 400 Tablet] 1 each PO DAILY 11/15 [History] Cyanocobalamin (Vitamin B-12) [Vitamin B-12] 500 mcg PO DAILY 09/07/15 [History] Furosemide [Lasix] 40 mg PO DAILY 09/07/15 [History] Gluc/Samy-MSM#1/C/Heber/Slava/Bor [Osteo Bi-Flex Caplet] 1 each PO DAILY 09/07/15 [ History] Propafenone [Rhythmol] 150 mg PO BID 09/07/15 [History] Warfarin [Coumadin] 2.5 mg PO SUTUWETHFRSA 09/07/15 [History] Calcium Acetate 667 mg PO TID 04/13/17 [History] Cilostazol [Pletal] 100 mg PO BID 04/13/17 [History] Gabapentin [Neurontin] 300 mg PO HS #30 capsule 04/28/17 [Rx] Omeprazole [PriLOSEC] 40 mg PO DAILY@0630 capsule. 04/28/17 [Rx] Renal Vitamin [Renal Caps Softgel] 1 mg PO DAILY capsule 04/28/17 [Rx] clonazePAM [Klonopin] 0.5 mg PO HS #5 tablet 04/28/17 [Rx] Polyethylene Glycol 3350 [MiraLAX] 17 gm PO DAILY 05/11/17 [History] Wheat Dextrin [Benefiber] 1 each PO DAILY 05/11/17 [History] Allergies/Adverse Reactions: 3 Allergy/AdvReac Type Severity Reaction Status Date / Time Sulfa (Sulfonamide Allergy Rash Verified 04/30/17 09:49 Antibiotics) Procedures/tests Complete & Pending: Procedures Performed prior 72 hours Category Date Time Status EV arterial imaging UE LT Routine Y 05/11/17 10:35 Ordered Date of admission: 05/11/17 02:12 Primary care physician: Jace Will DO Consults: 05/11/17 02:24 Consult to Nephrology [CONS] Routine Consulting Provider: Dionte Coffman Reason for Consult: esrd, on HD Call Completed: No Discharging clinician: Sae Herrera Anticipated date of discharge: 05/11/17 - Patient Status Disposition: Transfer Intermediate Care Fac Condition: Fair Overall status at discharge: patient is not back to baseline - Discharge Instructions Follow Up With: Jace Will DO [Primary Care Provider] - Interval History: Pt states his arm is hurting more today and it's getting very painful. Otherwise he is not complaining of any fevers, nausea, vomiting, chills, sob, cp , dysuria, or changes in bowel movements. He is having no other complaints other than his arm when I evaluated him. He had no overnight events. Hospital course: Mr. Nicole is a 76 year old male with pmh of ESRD on hemodialysis, ESBL UTI, a fib, on coumadin and rythmol, CAD status post stents, diabetes type 2 insulin- dependent, came tot ED complaining of severe LUE pain. the patient was RI'ed at the end of last year where he was treated for cellulitis in the left upper extremity after having an av fisula surgery performed by Dr. Ambrose. the area looks necrotic/eschar-like, dark, swollen. CT was performed showing left radial cellulitis in redd proxiaml arm. CXR was unremarkable. CRP is 246, CR 3.2, hemoglobin 9.3, INR 5.1, platelets 432. The ED physician spoke with director executive communications vascular surgery and they recommended admission adn would see pt tomorrow AM. Started pt on vancomycin, cefepime, meropenem as patients has hx of ESBL in urine. He was seen by our vascular surgeon, Dr. Baltazar who said patient needs higher level of care that can be offered here as this is now an ischemic limb that needs surgery and he recommended pt be trasnferred to [place]. Spoke with [facility] who agreed to accept the patient to their service. Pt is now being transferred to [place] and accepted to the [facility] Hospitalist with Dr. Salazar, the vascular surgeon consulting. [place] was full so the patient is awaiting a bed assignment. Pt is stable at time of transfer. - Time Spent with Patient Total time spent providing and/or coordinating discharge services: - Constitutional Vitals: Temp Pulse Resp BP Pulse Ox 97.6 F 83 16 86/68 94 05/11/17 11:20 05/11/17 11:20 05/11/17 11:20 05/11/17 11:20 05/11/17 11:20 General appearance: Present: A&O X 3, no acute distress, answers questions appropriately - Head Head exam: Present: atraumatic, normocephalic - Eye Eye exam: Present: PERRL, conjuntiva pink, sclera anicteric Pupils: Present: PERRL - Neck Neck exam general surgery: Present: supple, trachea midline. Absent: lymphadenopathy - Respiratory Respiratory exam: Present: CTAB. Absent: accessory muscle use, rales, rhonchi, wheezes - Cardiovascular Cardiovascular exam: Present: RRR, +S1, +S2. Absent: diastolic murmur, gallop, rubs, systolic murmur - GI/Abdominal GI/Abdominal exam: Present: normal bowel sounds, soft, no peritoneal signs. Absent: distended, tenderness - Extremities Exam Extremities exam: Present: warm. Absent: calf tenderness, cyanotic, pedal edema Additional comments: Left arm is black and cold near the A/C joint. He is able to move his fingers and does have capillary refill of that hand. The radial pulse is not palpable. - Neurological Exam Neurological exam: Present: CN II-XII intact, oriented X3, no focal deficits. Absent: pronater drift, facial droop, speech deficit - Skin Skin exam: Present: dry, intact <Ishola,Aguila T - Last Filed: 05/12/17 07:22> Date of Encounter: 05/12/17 Procedures/tests Complete & Pending: Procedures Performed prior 72 hours Category Date Time Status EV arterial imaging UE LT Routine Y 05/11/17 10:35 Ordered Date of admission: 05/11/17 02:12 Primary care physician: Jace Will DO Consults: 05/11/17 02:24 Consult to Nephrology [CONS] Routine Consulting Provider: Dionte Coffman Reason for Consult: esrd, on HD Call Completed: No Hospital course: Mr. Nicole is a 76 year old male - Time Spent with Patient Total time spent providing and/or coordinating discharge services: Greater than 30 minutes - Constitutional Vitals: Temp Pulse Resp BP Pulse Ox 97.8 F 94 16 116/64 92 05/11/17 15:01 05/11/17 15:01 05/11/17 15:01 05/11/17 15:01 05/11/17 15:01 - Attending Attestation I examined this patient and my medical decision-making was reviewed with the Resident Physician on 05/11/17. I agree with the documented findings, disposition and treatment plan as described except to the extent set forth below. Seen and examined at the bedside in the emergency room. 76-year-old male with end-stage renal disease on dialysis via a right chest wall permacath, he has also medical history of atrial fibrillation, hypertension , coronary artery disease, for complications of her left fistula. The patient was recently admitted and discharged in April for left upper extremity cellulitis. 2 represents this time with pain, swelling, back pain of the skin reveals left upper extremity. Patient at this time complains of pain in his left upper extremity, he also reports difficulty moving his left elbow and wrist. In addition, he also complains of chills and fevers. On exam significant findings in his left upper extremity. Left upper extremity has a large eschar around the radial surface, associated peeling of the skin, swelling, tender and erythematous. Range of motion is limited in the left elbow and left wrist. Capillary perfusion is brisk on the fingers. Radial pulses faint. Other systemic Physical exam unremarkable. Labs and imaging reviewed chronic anemia stable INR is supratherapeutic. Assessment: Left upper limb ischemia I spoke with Dr. Ambrose, this patients vascular surgeon and vascular surgeon director executive communications today. He reports that this patient needs multidisciplinary care including plastic surgery, orthopedic surgery, and vascular surgery. He has recommended that the patient be discharged to an outside facility for further care. In the meantime we will continue the antibiotics, will not start heparin drip as patients INR is currently 5.1. Nehrology evaluation is pending, patient is not due for HD and there is no emergent indication for HD at this time Plan of care was discussed with the patient and he verbalizes understanding. Infectious disease consult and input appreciated Rest of details as in the resident physicians documentation.
[2017-05-11] MEDS ORDERED: Piperacillin/Tazobactam 3.375 GM/200 ML BAG IVPB SCH (16:00)
--- NOTE | 2017-05-11 16:20 | Event Note ---
Date of Encounter: 05/11/17 Time of Encounter: 11:30 I saw the patient in the emergency room in bed #27. The patient had been admitted via the emergency room overnight. According to the patient had severe exacerbation of left upper extremity pain yesterday. I discovered later that the patient was seen by Dr. Coffman in the dialysis unit yesterday who then insisted that the patient go to the emergency room because of the left upper extremity findings. The patient's history is quite complicated with multiple ongoing problems including hemodialysis, diabetes, cardiac disease, peripheral vascular disease, cardiac arrhythmias and anticoagulation with Coumadin, and past history of stroke. At this time the patient was identified as also being supra anticoagulated with an INR of 5. The patient had been initiated on hemodialysis approximately 2 weeks ago. The patient was hospitalized because of left upper extremity cellulitis. I seen the patient on numerous occasions during that hospitalization. His physical exam is dramatically different today than from that hospitalization. On exam today the patient has a large thick eschar on the palmar surface of the left forearm based on the radial side but extending past the midline. This is a very thick dense area that was nonexistent when I seen the patient just approximate 10 days ago. The patient has pain on passive movement of his fingers and hands and wrist. He cannot extend his left elbow to 0 where he was able to do so when I had seen him before. He has exquisite tenderness to manipulation of the left arm and hand. I do not palpate an ulnar pulse. He has a known radial artery disease and no palpable pulses expected over this vessel. His left antecubital AV fistula is patent with a bruit present. In light of the dramatic nature of his left upper extremity deterioration with a combination of full-thickness tissue eschar and ischemia and neurologic issues with ongoing cardiac concerns and the need for dialysis I have recommended that the patient be transferred to a tertiary care center. He will need further evaluation from vascular surgery, plastic surgery, hand/orthopedic surgery, nephrology, internal medicine, and cardiology. Pending the results of their evaluation and treatment the patient may also need sophisticated wound services. The patient's arm changes are dramatic and may even require amputation if this process cannot be ameliorated. These services cannot be provided at the level needed for this patient at [place] and so therefore at transfer is recommended.
--- NOTE | 2017-05-11 20:08 | Electrocardiograph Report ---
[place] [id number] Test Date: 2017-05-10 Pat Name: Pawan Nicole Department: 102 Room: 2A14 Gender: M Band Tier: [place] : 1940 Requested By: Nathanael Willis Order Number: [id number] Reading MD: Lizett Gonzalez Measurements Intervals [place] Rate: 96 P: [place]: 0 QRS: 3 QRSD: 158 T: 0 QT: 376 QTc: 430 Interpretive Statements ATRIAL FIBRILLATION RIGHT BUNDLE BRANCH BLOCK [120+ ms QRS DURATION, UPRIGHT V1, 40+ ms S IN I/aVL/V4/V5/V6] ANTEROSEPTAL MYOCARDIAL INFARCTION [40+ ms Q WAVE IN V1-V4], OF INDETERMINATE AGE POSSIBLE OLD INFERIOR MA Electronically Signed On 05-11-2017 20:06:16 EST by Lizett Gonzalez
[2017-05-11] MEDS ORDERED: Gabapentin 300 MG CAPSULE PO SCH (21:00)
[2017-05-11] MEDS ORDERED: clonazePAM 0.5 MG TABLET PO SCH (21:00)
--- NOTE | 2017-05-11 21:30 | Event Note ---
Date of Encounter: 05/11/17 Time of Encounter: 12:45 Stopped in at the ER holding area to see patient who was directed to the ER for evaluation after seen by my associate, Dr Coffman at the HD unit for worsening arm pain on AVF arm with necrosis, eschar with erythema noted. Patient received full HD yesterday and lab results does not show any acute need at this time. Nurse reported transfer pending acceptance to a tertiary institution for multispecialty management. Also, spoke with vascular surgery, Dr Ambrose who also endorsed this which seems appropriate at this time. Pt seen and arm examined, plan also discussed as well. Now awaiting transfer.
[2017-05-11 23:47] VITALS: BP 134/78
[2017-05-11] MEDS ORDERED: Aminoglycoside Consult 1 EACH MC ONE (23:54)
== END 2017-05-11 23:55 | DRG 602 ==
LOC: EMEROO 19:31 → 2ANU 19:31 → SUATTDRO 05-11 02:12 → 2ANU 05-11 11:59
PROVIDERS: ADMIT Internal Medicine; ATTEND Internal Medicine

== ENCOUNTER 2017-05-26 19:08 | Inpatient (IN) ==
[~2017-05-26 19:08] MED LIST: *HR* Etomidate 20 MG/10 ML AMPUL IVP ONE; *HR* Rocuronium Bromide 100 MG/10 ML VIAL IVC ONE
[2017-05-26] MEDS ORDERED: *HR* Dextrose 50 % in Water (Syg) 50 ML SYRINGE IVP ONE ×2 (19:18→19:41)
[2017-05-26] MEDS ORDERED: *HR* Dextrose 50 % in Water (Syg) 50 ML SYRINGE ONE (19:18)
[2017-05-26] MEDS ORDERED: *HR* EPINEPHrine 1 MG/10 ML SYRINGE IVP ONE (19:18)
[2017-05-26] MEDS ORDERED: 0.9 % Sodium Chloride 250 ML ONE (19:21)
[2017-05-26] MEDS ORDERED: *HR* EPINEPHrine 1 MG/ML AMPUL ONE ×3 (19:21→19:33)
[2017-05-26] MEDS ORDERED: 0.9 % Sodium Chloride 1,000 ML IVC ONE (19:41)
[2017-05-26 19:42] LABS: ABG Base Excess -11 mEq/L (-2 to 3); ABG HCO3 14 mEq/L (21-27); ABG Oxygen Saturation 100 % (95-98); ABG PCO2 30 mmHg (35-45); ABG PH 7.29 pH Units (7.32-7.45); ABG PO2 220 mmHg (85-104); ABG TCO2 15 mEq/L (20-26)
[2017-05-26 20:27] LABS: Hematocrit 28.4 % (37.5-50.1); Hemoglobin 8.2 g/dL (12.9-16.9); Mean Corpuscular HGB Conc 28.9 g/dL (31.6-35.5); Mean Corpuscular Hemoglobin 29.1 pg (28.0-33.3); Mean Corpuscular Volume 100.7 fL (83.0-100.0); Mean Platelet Volume 10.4 fL (9.4-12.4); Nucleated Red Blood Cells 0.2 /100 WBC (0); Platelet Count 452 K/mcL (140-400); Red Blood Count 2.82 M/mcL (4.19-5.50); Red Cell Distribution Width 16.5 % (11.5-14.5)
[2017-05-26 20:34] LABS: Activated Partial Thrombo Time 39.3 Seconds (26.0-36.0)
[2017-05-26 20:35] LABS: INR 2.9; Prothrombin Time 31.7 Seconds (9.4-12.1)
--- NOTE | 2017-05-26 20:35 | Emergency Department Note ---
Disposition Clinical Impression: Bradycardia, Lactic acidosis, Elevated troponin, Transaminitis, Metabolic acidosis Hypotension Qualifiers: Hypotension type: unspecified hypotension type Qualified Code(s): I95.9 - Hypotension, unspecified Altered mental status Qualifiers: Altered mental status type: unspecified Qualified Code(s): R41.82 - Altered mental status, unspecified Disposition: Admitted As Inpatient Condition: Serious General Adult HPI - General Chief complaint: ED Altered Mental Status Stated complaint: AMS Time Seen by Provider: 05/26/17 19:27 Source: EMS Mode of arrival: EMS Limitations: altered mental status Nursing Notes Reviewed: Yes Vital Signs Reviewed: Yes - History of Present Illness HPI Narrative: 76 y/o male who was at dialysis at residential through they checked on him and he was unresponsive. He was brought by EMS. EMS was unable to get a pulse ox. He arrived unresponsive with agonal respiration. In reviewing the medical record approximately 2 weeks ago he had acute left upper extremity pain at the dialysis fistula site. He was found to have an acute ischemic limb from a ruptured left upper extremity AV fistula. After being seen by vascular surgery it was determined that he needed a higher level of care at a tertiary center. He was transferred to [facility]. He currently resides at a local nursing facility. PMH includes, Afib on coumadin, DM, HTN, ESRD on dialysis. Pain Scale: 0 Consistency: constant Improves with: nothing Worsens with: nothing Treatments Prior to Arrival: none - Related Data Home Medications Medication Instructions Recorded Confirmed Atorvastatin [Lipitor] 40 mg PO HS 09/07/15 05/26/17 Calcitriol [Rocaltrol] 0.25 mcg PO BID 09/07/15 05/26/17 Cyanocobalamin (Vitamin B-12) 500 mcg PO DAILY 09/07/15 05/26/17 [Vitamin B-12] Warfarin [Coumadin] 2.5 mg PO [id number] 09/07/15 05/26/17 Calcium Acetate 667 mg PO TID 04/13/17 05/26/17 Cilostazol [Pletal] 100 mg PO BID 04/13/17 05/26/17 Polyethylene Glycol 3350 [MiraLAX] 17 gm PO HS 05/11/17 05/26/17 Acetaminophen [Tylenol] 650 mg PO Q6H PRN 05/26/17 05/26/17 Aspirin Enteric Coated [Aspirin EC] 81 mg PO DAILY 05/26/17 05/26/17 Bisacodyl [Dulcolax] 10 mg RC DAILY PRN 05/26/17 05/26/17 Calcium Carbonate/Vitamin D3 1 each PO DAILY 05/26/17 05/26/17 [Calcium 500-Vit D3 200 Tablet] Insulin Glargine [Lantus] 8 unit SQ HS 05/26/17 05/26/17 Insulin LISPRO [HumaLOG] 2 - 10 unit SQ TID 05/26/17 05/26/17 Metoprolol [Lopressor] 25 mg PO BID 05/26/17 05/26/17 Omeprazole [PriLOSEC] 40 mg PO DAILY 05/26/17 05/26/17 Oxycodone HCl 5 mg PO Q6H PRN 05/26/17 05/26/17 Sevelamer [Renvela] 800 mg PO TIDWM 05/26/17 05/26/17 Previous Rx's Medication Instructions Recorded Gabapentin [Neurontin] 300 mg PO HS #30 capsule 04/28/17 clonazePAM [Klonopin] 0.5 mg PO HS #5 tablet 04/28/17 Allergies Allergy/AdvReac Type Severity Reaction Status Date / Time Sulfa (Sulfonamide Allergy Rash Verified 04/30/17 09:49 Antibiotics) Limitations: ROS unobtainable due to patients medical condition Past Medical History - Past Medical History Medical history: Reports: atrial fibrillation, COPD, coronary artery disease, diabetes, GERD, hyperlipidemia, hypertension, myocardial infarction, other Surgical history: Reports: bariatric surgery, cholecystectomy, pacemaker/AICD, other Psychiatric history: Reports: no psych history, anxiety - Social History Smoking Status: Never smoker Smokeless Tobacco Status: No Alcohol use: Reports: none Drug use: Reports: none Physical Exam - General Limitations: altered mental status General appearance: lethargic - Head Head exam: atraumatic - Eye Eye exam: Present: other (left pupil markedly dilated compared to the right. However, both are reactive.) - Neck Neck exam: Present: normal inspection - Chest Chest inspection: Present: normal inspection - Respiratory Respiratory exam: Present: other (Respiratory distress with agonal respirations) - Cardiovascular Cardiovascular exam: Present: bradycardia, irregular rhythm - Abdominal Exam Abdominal exam: Present: soft - Extremities Exam Extremities exam: Present: other (discolaration to the left upper extremity, capillary refill is present. Multiple open wounds without purulence. Cassie present from prior procedure.) - Neurological Exam Neurological exam: Present: other (Inital GCS of 10. (5 motor, 3 verbal, 2 eyes ). Moves all extremities to pain) - Skin Skin exam: Present: warm, dry Course Course Narrative: 76-year-old male who arrives with agonal respirations. Accu-Chek was obtained which showed a glucose of less than 50. While we are preparing for intubation and I was personally doing bag valve mask he received 2 amps of D50 which improved his mental status and his breathing. His blood pressure was very low on presentation with a systolic blood pressure of 50. He received a total of 300 g of epinephrine for blood pressure support in addition he was also bradycardic with a rate in the 40s. This did improve his blood pressure and his heart rate. He also started on IV fluids. By this time he received some liquid glucose and his mental status and respirations had improved. His GCS improved to a 10. At this point it was decided to delay intubation and initially place him on BiPAP. He was placed on an epinephrine drip which further improved his blood pressure along with IV fluids. A left-sided central line was placed by myself for vasopressor support and further IV access. His mental status continued to improve and he will open his eyes to command and move extremities to command and does reply of 1 word answers. Received 1 liter of saline at dialysis, plus 2 liters from us in the ED. Initially received calcium gluconate and dextrose during initial resuscitation. His left upper extremity was unwrapped which shows multiple large wounds with recent surgical debridement. No purulence is noted. There is capillary refill of the distal extremity however the entire extremity is discolored which appears to be chronic according to EMS. However, due to multiple open wounds and WBC count of 20, will start antibiotics due to metabolic acidosis. Started linezolid and zosyn. Troponin is elevated, however no signs of cardiogenic shock. No new edema in the periphery or in the lungs. EKG shows a paced rhythm. No Scarbossa criteria fulfillment. He is already anticoagulated on coumadin with an INR of 2.9. Likely shock liver present with AST/ALT elevation. Anion gap is 22. Lactate is pending. With IVF and epi drip and bipap his mental status has improved markedly. He opens his eyes spontaneously, answers basic questions, and moves all extremities. Repeat accucheck shows glucose of >100. I called [facility] as he was recently discharged from there. They will call back when an ICU bed is available, however they are unsure if it will be tonight. I will attempt to admit to our ICU pending transfer to [facility]. Spoke with Dr Graham who accepted the patient for admission to the ICU. Will consult cardiology due to troponin elevation and hypotension. Vital Signs Temperature 0 F L 05/26/17 19:11 Pulse Rate 78 05/26/17 19:11 Respiratory Rate 12 05/26/17 19:11 Blood Pressure 50/38 05/26/17 19:11 O2 Sat by Pulse Oximetry 0 05/26/17 19:11 Temperature 95.9 F L 05/27/17 04:56 Pulse Rate 91 05/27/17 06:00 Respiratory Rate 27 05/27/17 06:02 Blood Pressure 139/60 05/27/17 06:02 O2 Sat by Pulse Oximetry 95 05/27/17 04:00 Oxygen Delivery Oxygen Delivery Bipap Procedures - Central Line Placement Left IJ Central Line Inserted*: Yes Central Line Insertion: emergent Procedural Pause: verify patient name and date of , timeout performed per policy, assemble equipment and verify supplies, perform hand hygiene During the Procedure: clinician is wearing sterile gloves, cap, mask,& gown during insertion, sterile field and sterile technique are maintained, patient's face is covered with drape or mask and wearing a cap, everyone in room is wearing a mask Central Line Prep: Chlorhexidine scrub Prep the Procedure Site: apply chloraprep to the skin using a back and forth scrubbing motion, apply chloraprep for 30 seconds (upper body), 1-2 min ( femoral sites), allow prep to dry, drape the patient with a full body drape Local Anesthetic: lidocaine 1% Ultrasound Used for Placement: Yes Central Line Lumen Inserted: triple Post Procedure X-Ray: tip of catheter in good position, no pneumothorax seen Patient Tolerated Procedure: well, no complications Complications: none Medical Decision Making - Medical Records Medical records reviewed: Yes I reviewed the patient's medical records. - Lab Data Lab results reviewed: Yes I reviewed the patient's lab results. Result diagrams: 05/27/17 05:30 05/27/17 05:30 Lab Results 05/26/17 05/26/17 05/26/17 Range/Units 19:32 20:10 20:10 WBC 20.0 H (4.3-11.1) K/mcL RBC 2.82 L (4.19-5.50) M/mcL Hgb 8.2 L (12.9-16.9) g/dL Hct 28.4 L (37.5-50.1) % MCV 100.7 H (83.0-100.0) fL MCH 29.1 (28.0-33.3) pg MCHC 28.9 L (31.6-35.5) g/dL RDW 16.5 H (11.5-14.5) % Plt Count 452 H (140-400) K/mcL MPV 10.4 (9.4-12.4) fL Seg Neutrophils % 90.0 % Band Neutrophils % 2.0 (0-4) % Lymphocytes % Test Not Performed Monocytes % 4.0 % Myelocytes % 4.0 H (0) % Neutrophils # 18.4 H (1.6-8.9) K/mcL Lymphocytes # SLUICE TENDER Monocytes # 0.8 (0.0-1.3) K/mcL Nucleated RBCs/100 WBC 0.2 H (0) /100 WBC Polychromasia 1+ A (Not Present) Hypochromasia Present A (Not Present) PT 31.7 H D (9.4-12.1) Seconds INR 2.9 D APTT 39.3 H (26.0-36.0) Seconds Sample Site R Radial ABG pH 7.29 L (7.32-7.45) pH Units ABG pCO2 30 L (35-45) mmHg ABG pO2 220 H (85-104) mmHg ABG HCO3 14 L (21-27) mEq/L ABG Total CO2 15 L (20-26) mEq/L ABG O2 Saturation 100 H (95-98) % ABG Base Excess -11 L (-2 to 3) mEq/L Mo Test N/A O2 Delivery Device BiPAP Inspired O2 100.0 (1-15=lpm [id number]=%) Sodium (136-145) mEq/L Potassium (3.5-5.1) mEq/L Chloride (98-107) mEq/L Carbon Dioxide (23-29) mEq/L BUN (8-23) mg/dL Creatinine (0.70-1.30) mg/dL Est GFR ( Amer) (> 60) Est GFR (Non-Af Amer) (> 60) BUN/Creatinine Ratio (6-26) Glucose (70-105) mg/dL Calculated Osmolality (280-300) Lactic Acid (0.5-2.2) mmol/L Calcium (8.6-10.3) mg/dL Total Bilirubin (0.3-1.0) mg/dL Direct Bilirubin (0.0-0.2) mg/dL Indirect Bilirubin (0.0-1.2) mg/dL AST (13-39) Units/L ALT (7-52) Units/L Alkaline Phosphatase (34-104) Units/L Ammonia (16-53) mcmol/L Creatine Kinase (30-223) Units/L Troponin I (< 0.04) ng/mL Serum Total Protein (6.4-8.9) g/dL Albumin (3.5-5.7) g/dL Globulin (2.4-3.5) g/dL Albumin/Globulin Ratio (1.1-2.2) TSH (0.340-5.600) mcIU/mL Ethyl Alcohol (0-10) mg/dL 05/26/17 05/26/17 05/26/17 Range/Units 20:10 20:10 20:10 WBC (4.3-11.1) K/mcL RBC (4.19-5.50) M/mcL Hgb (12.9-16.9) g/dL Hct (37.5-50.1) % MCV (83.0-100.0) fL MCH (28.0-33.3) pg MCHC (31.6-35.5) g/dL RDW (11.5-14.5) % Plt Count (140-400) K/mcL MPV (9.4-12.4) fL Seg Neutrophils % % Band Neutrophils % (0-4) % Lymphocytes % Monocytes % % Myelocytes % (0) % Neutrophils # (1.6-8.9) K/mcL Lymphocytes # Monocytes # (0.0-1.3) K/mcL Nucleated RBCs/100 WBC (0) /100 WBC Polychromasia (Not Present) Hypochromasia (Not Present) PT (9.4-12.1) Seconds INR APTT (26.0-36.0) Seconds Sample Site ABG pH (7.32-7.45) pH Units ABG pCO2 (35-45) mmHg ABG pO2 (85-104) mmHg ABG HCO3 (21-27) mEq/L ABG Total CO2 (20-26) mEq/L ABG O2 Saturation (95-98) % ABG Base Excess (-2 to 3) mEq/L Mo Test O2 Delivery Device Inspired O2 (1-15=lpm [id number]=%) Sodium 134 L (136-145) mEq/L Potassium 4.1 (3.5-5.1) mEq/L Chloride 95 L (98-107) mEq/L Carbon Dioxide 17 L (23-29) mEq/L BUN 24 H (8-23) mg/dL Creatinine 3.70 H (0.70-1.30) mg/dL Est GFR ( Amer) 19 L (> 60) Est GFR (Non-Af Amer) 16 L (> 60) BUN/Creatinine Ratio 6 (6-26) Glucose 189 H (70-105) mg/dL Calculated Osmolality 287 (280-300) Lactic Acid (0.5-2.2) mmol/L Calcium 7.9 L (8.6-10.3) mg/dL Total Bilirubin 1.0 (0.3-1.0) mg/dL Direct Bilirubin 0.6 H (0.0-0.2) mg/dL Indirect Bilirubin 0.4 (0.0-1.2) mg/dL AST > 3000 H (13-39) Units/L ALT 226 H (7-52) Units/L Alkaline Phosphatase 268 H (34-104) Units/L Ammonia 65 H (16-53) mcmol/L Creatine Kinase 332 H (30-223) Units/L Troponin I 2.25 H* (< 0.04) ng/mL Serum Total Protein 5.9 L (6.4-8.9) g/dL Albumin 2.2 L (3.5-5.7) g/dL Globulin 3.7 H (2.4-3.5) g/dL Albumin/Globulin Ratio 0.6 L (1.1-2.2) TSH (0.340-5.600) mcIU/mL Ethyl Alcohol < 10 (0-10) mg/dL 05/26/17 05/26/17 Range/Units 20:10 21:55 WBC (4.3-11.1) K/mcL RBC (4.19-5.50) M/mcL Hgb (12.9-16.9) g/dL Hct (37.5-50.1) % MCV (83.0-100.0) fL MCH (28.0-33.3) pg MCHC (31.6-35.5) g/dL RDW (11.5-14.5) % Plt Count (140-400) K/mcL MPV (9.4-12.4) fL Seg Neutrophils % % Band Neutrophils % (0-4) % Lymphocytes % Monocytes % % Myelocytes % (0) % Neutrophils # (1.6-8.9) K/mcL Lymphocytes # Monocytes # (0.0-1.3) K/mcL Nucleated RBCs/100 WBC (0) /100 WBC Polychromasia (Not Present) Hypochromasia (Not Present) PT (9.4-12.1) Seconds INR APTT (26.0-36.0) Seconds Sample Site ABG pH (7.32-7.45) pH Units ABG pCO2 (35-45) mmHg ABG pO2 (85-104) mmHg ABG HCO3 (21-27) mEq/L ABG Total CO2 (20-26) mEq/L ABG O2 Saturation (95-98) % ABG Base Excess (-2 to 3) mEq/L Mo Test O2 Delivery Device Inspired O2 (1-15=lpm [id number]=%) Sodium (136-145) mEq/L Potassium (3.5-5.1) mEq/L Chloride (98-107) mEq/L Carbon Dioxide (23-29) mEq/L BUN (8-23) mg/dL Creatinine (0.70-1.30) mg/dL Est GFR ( Amer) (> 60) Est GFR (Non-Af Amer) (> 60) BUN/Creatinine Ratio (6-26) Glucose (70-105) mg/dL Calculated Osmolality (280-300) Lactic Acid > 10.0 H* (0.5-2.2) mmol/L Calcium (8.6-10.3) mg/dL Total Bilirubin (0.3-1.0) mg/dL Direct Bilirubin (0.0-0.2) mg/dL Indirect Bilirubin (0.0-1.2) mg/dL AST (13-39) Units/L ALT (7-52) Units/L Alkaline Phosphatase (34-104) Units/L Ammonia (16-53) mcmol/L Creatine Kinase (30-223) Units/L Troponin I (< 0.04) ng/mL Serum Total Protein (6.4-8.9) g/dL Albumin (3.5-5.7) g/dL Globulin (2.4-3.5) g/dL Albumin/Globulin Ratio (1.1-2.2) TSH 3.176 (0.340-5.600) mcIU/mL Ethyl Alcohol (0-10) mg/dL - Radiology Data Radiology results reviewed: Yes I reviewed the patient's radiology results. - EKG Data EKG #1 EKG attestation: Yes I reviewed and interpreted this EKG. Rate: normal Interpretation: other (Paced rhythm, no scarbossa criteria fulfillment) Attestation Statement - Attestation Attestation: I, Joe Villareal, examined this patient and my medical decision-making was reviewed with the EQUIPMENT DRIVER/PA/Advanced Practice Nurse/Resident Physician. I agree with the documented findings, disposition and treatment plan as described except to the extent set forth below. 76-year-old male brought in by EMS for further evaluation of altered mental status. Patient was found unresponsive during the middle of her dialysis treatment. Patient had a recent complicated history of failed left upper extremity AV fistula which caused necrosis of the left upper extremity. Patient was initially evaluated at [facility] then transferred to [facility] for further care and evaluation. During our evaluation emergency Department patient arrived with very slow respirations and hypoxia. Patient was also hypotensive. He had a fingerstick glucose which was extremely low. We provided O2 support, placed a line and gave an amp of D50 at which point the patient started to arouse. Patient was given additional glucose and he was then able to open his eyes to verbal command. He was moving spontaneously. Patient's O2 saturation improved significantly with BiPAP. The resident spoke with the transfer line to [facility] who stated they did not have an ICU bed and recommended admission to our ICU until running when he could be transferred. Patient admitted to the ICU at [facility].
[2017-05-26 20:41] LABS: Ethanol < 10 mg/dL (0-10)
[2017-05-26 20:46] LABS: Hypochromasia Present (Not Present); Monocytes # 0.8 K/mcL (0.0-1.3); Neutrophils # 18.4 K/mcL (1.6-8.9); Polychromasia 1+ (Not Present)
[2017-05-26] MEDS: D5% in 0.45% NACL 1,000 ML IVC SCH (21:09)
[2017-05-26 21:16] LABS: Alanine Aminotransferase 226 Units/L (7-52); Albumin 2.2 g/dL (3.5-5.7); Albumin/Globulin Ratio 0.6 (1.1-2.2); Alkaline Phosphatase 268 Units/L (34-104); Aspartate Amino Transferase > 3000 Units/L (13-39); BUN/Creatinine Ratio 6 (6-26); Bilirubin,Direct 0.6 mg/dL (0.0-0.2); Bilirubin,Indirect 0.4 mg/dL (0.0-1.2); Blood Urea Nitrogen 24 mg/dL (8-23); Calcium 7.9 mg/dL (8.6-10.3); Carbon Dioxide 17 mEq/L (23-29); Chloride 95 mEq/L (98-107); Creatine Kinase 332 Units/L (30-223); Globulin 3.7 g/dL (2.4-3.5); Glucose 189 mg/dL (70-105); Osmolality,Calculated 287 (280-300); Potassium 4.1 mEq/L (3.5-5.1); Sodium 134 mEq/L (136-145); Total Protein 5.9 g/dL (6.4-8.9); eGFR For African Americans 19 (> 60); eGFR For Non-African Americans 16 (> 60)
[2017-05-26] MEDS ORDERED: Piperacillin/Tazobactam 3.375 GM in Water for inj. (sterile) 20 ML IVP ONE (21:18)
--- NOTE | 2017-05-26 23:08 | Internal Med History&Physical ---
<Jessee Ceballos - Last Filed: 05/27/17 00:32> Date of Encounter: 05/27/17 Time of Encounter: 23:04 Assessment and Plan (1) Respiratory failure Current visit: Yes Status: Acute upon arrival to the ICU the patient was noted to be hypoxic and decreased mentation from where he was seen during evauation in the emergency department. Atthat tme it was elected for the patient to be intubated. Patient put on ARDS ventilator setting and on monitor with ABG performed. Qualifiers: Chronicity: unspecified Respiratory failure complication: unspecified whether with hypoxia or hypercapnia Qualified Code(s): J96.90 - Respiratory failure, unspecified, unspecified whether with hypoxia or hypercapnia (2) Hypotension Current visit: Yes Status: Acute patient noted to be hypotensiveupon arrival to the emergency department with systolic in the 50s. He was started on an epinephrine drip.the patient is currently 97/58. he will be switched to a norepinephrine drip.we will continue to monitor the patient's hypotension. This is likely mixed associated with possibble sepsis, in addition the patient also spirits what is likely some hypovolemic vs cardiogenic shock. Qualifiers: Hypotension type: unspecified hypotension type Qualified Code(s): I95.9 - Hypotension, unspecified (3) Lactic acidosis Current visit: Yes Status: Acute the patient's lactic acid was noted to be greater than 10. we will continue to repeat the patient's lactic acid every 4 hours to trend. this is likely associated with the patient's necrotic left upper extremity which has been ongoing ever since the patient received a left upper extremity AV fistula fordialysis. The patient had extensive debridement of the left upper extremity upon admission to [facility] and was recently discharged. There were normal numerous notes noted in discharge paperwork and paperwork throughout [facility] admission that demonstrated no pulses to the left upper extremity and likely loss of the left upper extremity inevitable.the patient currently has no palpable pulse and no pulse on Doppler. We will perform a CT scan of the patient's left upper extremity In addition we will consult vascular surgery. (4) Pleural effusion Current visit: Yes Status: Acute noted on CTA f the patient's chest. It is bilateral. (5) Pericardial effusion Current visit: Yes Status: Acute formal echocardiogram ordered. cardiology consult placed.there is likely some associated cardiogenic shock but we will continue to monitor and determine if there is any right ventricular dysfunction. (6) Elevated troponin Current visit: Yes Status: Acute we will continue to trend the patient's troponin. Cardiology has been consulted. No further recommendations at this time. (7) Left upper limb pain Current visit: No Status: Acute this appears to be baseline for the patient ever since the patient was discharged from [facility]. this was confirmed with [facility]. They noted thatt the patient has no pulse of his left upper extremity and his left fingertips appeared dusky in color and this is unchanged at this time. We are performing a left upper extremity CT scan. Vascular surgery will be consulted. (8) ESRD (end stage renal disease) Current visit: No Status: Chronic (9) Complication of AV dialysis fistula Current visit: No Status: Acute Qualifiers: Encounter type: sequela Qualified Code(s): T82.9XXS - Unspecified complication of cardiac and vascular prosthetic device, implant and graft, sequela Internal Medicine - H&P: HPI Chief complaint: Unresponsive, alteration in mentation Admitted From: Emergency Dept Plans for Post Hospital Care: Home History of present illness: Mr. Nicole is a 76 year old male with history of end-stage renal disease on dialysis, history of pacemaker, arrives to the emergency department from dialysis after the patient became unresponsive. The patient's systolic blood pressure was noted at 106 after receiving dialysis. The patient did receive 1 IV fluid bolus at dialysis facility. The patient demonstrated no tachycardia there. The patient was transported to [facility] emergency department where immediate resuscitation was begun. The patient's glucose was noted to be in the 30s. The patient was administered glucose as well as a central line placed immediately and started on an epinephrine drip for systolic blood pressure in the 50s. The patient's workup in the emergency department demonstrated a small pericardial effusion as well as bilateral pleural effusions. The patient was also found to have an elevated lactic acid, and elevated troponin, elevated liver enzymes. The patient is an elevated CPK as well. The patient was administered 3 L of IV fluid in our emergency department here at [facility] as well as started on Zyvox and Zosyn. The patient is also currently on an epinephrine drip after placement of the left IJ CVC. The patient has a dialysis catheter of the right IJ in place. The patient received a CTA of the chest which demonstrated no PE. The patient was recently admitted to the hospital on May 11 left upper extremity cellulitis. It was noted at that time that the patient's left upper extremity was likely gangrenous. The patient was subsequently transferred to [facility] and received surgical debridement. The patient has surgical wounds that are currently open and stapled of the left upper extremity. There is black Tejinder noted of the left upper extremity. The patient has had no purulent discharge that is evident on surgical sites without any warmth to touch. There is capillary refill bilateral upper extremities. The patient was placed on a D5 drip as well. Glucose has begun to normalize. The patient was expressing decreased consciousness until he received glucose. The patient is currently on BiPAP and doing well. He is answering questions and following commands. He is alert to person and place. He denies any other complaints at this time. The patient is currently anticoagulated on warfarin. The patient was noted from nursing facility was also noted to have decreased pulses and dusky colorafter speaking to them on the phone. They stated that the patient should be having a wound VAC of his leftupper extremity. in addition they noted that the patient did not have any pulses to his left upper extremity last night , roughly 24 hours ago. Past Med Surg Social Fam HX - Past Medical History Source: old records reviewed Medical history: atrial fibrillation, COPD, coronary artery disease, diabetes, GERD, hyperlipidemia, hypertension, myocardial infarction, other Psychiatric history: no psych history, anxiety - Past Surgical History Surgical History: bariatric surgery, cholecystectomy, pacemaker/AICD, other - Social History Smoking Status: Never smoker Smokeless Tobacco Status: No Alcohol use: none Drug use: none - Family History Mother Family Member Ethnicity: Non- Living Status: Hx Family Cardiac Disorders: Yes (AR, HTN) Hx Family Endocrine Disorder: Yes (DM) Brother Family Member Ethnicity: Non- Living Status: Sister Family Member Ethnicity: Non- Living Status: Still Living Hx Family Endocrine Disorder: Yes (DM) Father Family Member Ethnicity: Non- Living Status: Hx Family Cardiac Disorders: Yes (Stroke) Hx Family Respiratory Disorders: No Hx Family Cancer: No Hx Family GI Disorders: No Hx Family Endocrine Disorder: No Hx Family Neuromuscular Disorders: No Hx Family Neurologic Disorders: No Hx Family HEENT Disorders: No Hx Family Autoimmune Disorders: No Internal Medicine - H&P: Meds Atorvastatin [Lipitor] 40 mg PO HS 09/07/15 [History] Calcitriol [Rocaltrol] 0.25 mcg PO BID 09/07/15 [History] Cyanocobalamin (Vitamin B-12) [Vitamin B-12] 500 mcg PO DAILY 09/07/15 [History] Warfarin [Coumadin] 2.5 mg PO SUTUWETHFRSA 09/07/15 [History] Calcium Acetate 667 mg PO TID 04/13/17 [History] Cilostazol [Pletal] 100 mg PO BID 04/13/17 [History] Gabapentin [Neurontin] 300 mg PO HS #30 capsule 04/28/17 [Rx] clonazePAM [Klonopin] 0.5 mg PO HS #5 tablet 04/28/17 [Rx] Polyethylene Glycol 3350 [MiraLAX] 17 gm PO HS 05/11/17 [History] Acetaminophen [Tylenol] 650 mg PO Q6H PRN 05/26/17 [History] Aspirin Enteric Coated [Aspirin EC] 81 mg PO DAILY 05/26/17 [History] Bisacodyl [Dulcolax] 10 mg RC DAILY PRN 05/26/17 [History] Calcium Carbonate/Vitamin D3 [Calcium 500-Vit D3 200 Tablet] 1 each PO DAILY [History] Insulin Glargine [Lantus] 8 unit SQ HS 05/26/17 [History] Insulin LISPRO [HumaLOG] 2 - 10 unit SQ TID 05/26/17 [History] Metoprolol [Lopressor] 25 mg PO BID 05/26/17 [History] Omeprazole [PriLOSEC] 40 mg PO DAILY 05/26/17 [History] Oxycodone HCl 5 mg PO Q6H PRN 05/26/17 [History] Sevelamer [Renvela] 800 mg PO TIDWM 05/26/17 [History] 3 Allergy/AdvReac Type Severity Reaction Status Date / Time Sulfa (Sulfonamide Allergy Rash Verified 04/30/17 09:49 Antibiotics) All Systems PM: A 10-system review of systems was performed and is negative for pertinent findings except as documented above in the HPI. - Constitutional Constitutional: fatigue, malaise, weakness, no fever(s) - EENT Eyes: no change in vision, no discharge, no pain, no photophobia Ears: no ear discharge, no ear pain, no tinnitus Nose, mouth and throat: no dysphagia, no nasal discharge, no neck pain, no sore throat - Cardiovascular Cardiovascular ROS IM: dyspnea, edema, no chest pain, no diaphoresis, no lightheadedness, no palpitations, no syncope - Respiratory Respiratory: dyspnea, dyspnea on exertion, no cough - Gastrointestinal Gastrointestinal: no abdominal pain, no diarrhea, no hematemesis, no hematochezia, no melena, no nausea, no vomiting - Musculoskeletal Musculoskeletal ROS IM: myalgias, no numbness, no tingling - Integumentary Integumentary IM: no rash, no unusual bruising - Neurological Neurological ROS: confusion - Constitutional Vitals: Temp Pulse Resp BP Pulse Ox 0 F L 69 18 91/64 100 05/26/17 19:11 05/26/17 22:07 05/26/17 21:32 05/26/17 22:07 05/26/17 22:07 General appearance: Present: A&O X 2, pleasant, no acute distress, answers questions appropriately - Head Head exam: Present: atraumatic, normocephalic - Eye Eye exam: Present: conjuntiva pink, sclera anicteric Pupils: Present: PERRL Additional comments: Aniscoria noted of the left pupil - Neck Neck exam general surgery: Present: supple, trachea midline. Absent: lymphadenopathy - Respiratory Respiratory exam: Present: rales (Bilateral lower lobes without any overt wheezing or respiratory distress noted. ). Absent: accessory muscle use, respiratory distress, stridor, wheezes, tachypnea - Cardiovascular Cardiovascular exam: Present: irregular rhythm, +S1, +S2, tachycardia. Absent: diastolic murmur, gallop, rubs, systolic murmur - GI/Abdominal GI/Abdominal exam: Present: normal bowel sounds, soft, no peritoneal signs. Absent: distended, tenderness - Extremities Exam Extremities exam: Present: warm, radial pulses palpable and symmetrical. Absent : calf tenderness, cyanotic, pedal edema Additional comments: Patient has black eschar tissue of the left upper extremity with numerous surgical wounds. Left posterior forearm demonstrates a 10 x 30 cm area where skin is grafted with open surgical wounds. No active bleeding, no active purulent discharge noted. Patient has Right upper extremity pulses on palpation with capillary refill less than 2 seconds in RUE. LUE is dusky at fingertips with no palpable pulse to LUE. - Neurological Exam Neurological exam: Present: CN II-XII intact, no focal deficits. Absent: pronater drift, facial droop, speech deficit - Skin Skin exam: Present: dry Internal Med - H&P Results - Labs CBC & Chem 7: 05/26/17 20:10 05/26/17 20:10 - Attending Attestation I examined this patient and my medical decision-making was reviewed with the Resident Physician. I agree with the documented findings, disposition and treatment plan as described except to the extent set forth below. Procedures: Internal Med - Intubation Time out performed: No Sedative: Etomidate Paralytic: Rocuronium Laryngoscope: Tere ET tube size: 7.5 ET tube uncuffed: No Tube secured depth (cm): 24 Tube secured location: lips Tube placement confirmation: visualized tube passing through cords, equal breath sounds bilaterally, no breath sounds over epigastrium, confirmation by capnometry Patient tolerated procedure: well, no complications Intubation complications: none <Tam Graham - Last Filed: 05/27/17 00:58> Date of Encounter: 05/27/17 Time of Encounter: 23:00 Internal Medicine - H&P: HPI History of present illness: Mr. Nicole is a 76 year old male All Systems PM: A 10-system review of systems was performed and is negative for pertinent findings except as documented above in the HPI. - Constitutional Vitals: Temp Pulse Resp BP Pulse Ox 96.4 F L 85 14 97/60 80 05/26/17 23:49 05/27/17 00:12 05/27/17 00:12 05/27/17 00:12 05/27/17 00:12 Internal Med - H&P Results - Labs CBC & Chem 7: 05/26/17 20:10 05/26/17 20:10 - ABG Interpretation ABG results: 05/27/17 00:10 ABG pH 7.25 L ABG pCO2 24 L ABG pO2 167 H D ABG HCO3 11 L ABG Total CO2 11 L ABG O2 Saturation 99 H ABG Base Excess -15 L - Impressions ITS Impressions Chest X-Ray 05/26/17 23:53 IMPRESSION: 1. Tip of the endotracheal tube is approximately 1.5 cm above the jessica. Consider withdrawing that approximately 1-2 cm for more optimal placement. 2. Tips of the nasogastric tube and the left internal jugular central venous catheter are in the expected location. D/ / Ronnie Srinivasan MD / Ronnie Srinivasan MD Interpreting Provider: Ronnie Srinivasan MD - Attending Attestation I examined this patient and my medical decision-making was reviewed with the Resident Physician, Jessee Ceballos. I agree with the documented findings, disposition and treatment plan as described except to the extent set forth below. 76-year-old male patient with recent left inguinal fistula rupture and compartment syndrome involving the left approximately present in with hypotension, bradycardia, hypoglycemia and respiratory failure. Patient not able to provide much history. Heart sounds normal to examination patient does have decreased breath sounds at both bases. Left upper extremity has significant necrotic lesions and postsurgical changes with rhys. No clear signs of infection. Acute respiratory failure requiring intubation and mechanical ventilation: Patient was intubated in ICU. Vent management. Monitor ABG and saturation. Pulmonology/intensive care consult. Shock: Possible septic versus circulatory/cardiogenic. We will treat with antibiotics. Trend lactic acid. Pressor support. Recent left upper extremity compartment syndrome and AV fistula rupture: Consult vascular surgery. IV antibiotics. Local wound care. Critical care time: 35 minutes Prognosis: Guarded Condition: Critical
[2017-05-26] MEDS ORDERED: Dextrose Gel 15 GM/37.5 ML TUBE PO PRN ×2 (23:26)
[2017-05-26] MEDS ORDERED: *HR* Dextrose 50 % in Water (Syg) 50 ML SYRINGE IVP PRN (23:26)
[2017-05-26] MEDS ORDERED: D5% in Water 1,000 ML IVC PRN (23:26)
[2017-05-26] MEDS ORDERED: Potassium Chloride 40 MEQ/200 ML BAG IVPB PRN (23:27)
[2017-05-26] MEDS ORDERED: Dextrose 50 % in Water (Vial) 50 ML in D5% in 0.2% NACL 500 ML IVC SCH (23:30)
[2017-05-27 00:13] LABS: ABG Base Excess -15 mEq/L (-2 to 3); ABG HCO3 11 mEq/L (21-27); ABG Oxygen Saturation 99 % (95-98); ABG PCO2 24 mmHg (35-45); ABG PH 7.25 pH Units (7.32-7.45); ABG PO2 167 mmHg (85-104); ABG TCO2 11 mEq/L (20-26); Blood Gas Modality VC
[2017-05-27] MEDS ORDERED: Dexmedetomidine HCl 400 MCG/100 ML MLS IVC ONE (00:13)
[2017-05-27] MEDS: Dexmedetomidine HCl 400 MCG/100 ML MLS IVC SCH ×2 (00:20→19:58)
[2017-05-27] MEDS: D5% in 0.45% NACL 1,000 ML IVC SCH (00:20)
[2017-05-27] MEDS: Norepinephrine 4 MG in D5% in Water 250 ML IVC SCH ×3 (00:49→21:53)
[2017-05-27] MEDS: Insulin LISPRO 300 UNITS/3 ML VIAL SQ SCH ×4 (00:50→17:35)
[2017-05-27] MEDS: EPINEPHrine 1 MG in D5% in Water 250 ML IVC SCH ×2 (00:50→20:04)
[2017-05-27] MEDS: Heparin 25,000 UNIT/500 ML D5W 25,000 UNIT/500 ML BAG IVC SCH ×2 (01:39→23:09)
[2017-05-27 04:00] LABS: ABG Base Excess -14 mEq/L (-2 to 3); ABG HCO3 13 mEq/L (21-27); ABG Oxygen Saturation 98 % (95-98); ABG PCO2 35 mmHg (35-45); ABG PH 7.19 pH Units (7.32-7.45); ABG PO2 121 mmHg (85-104); ABG TCO2 14 mEq/L (20-26); Blood Gas Modality VC; Blood Gas PEEP 10 cm H2O; Blood Gas Respiration Rate 22; Blood Gas VT 420 cc
[2017-05-27] MEDS ORDERED: *HR* Heparin 5,000 UNIT/ML VIAL IVP PRN ×2 (04:44)
[2017-05-27] MEDS ORDERED: 0.9 % Sodium Chloride 1,000 ML IVC ONE ×2 (04:46→06:31)
[2017-05-27] MEDS ORDERED: Sodium Bicarbonate 150 MEQ in D5% in Water 1,000 ML IVC SCH (05:00)
[2017-05-27] MEDS: FentaNYL (PF) 1,000 MCG in 0.9 % Sodium Chloride 80 ML IVC SCH ×2 (05:04→20:02)
[2017-05-27 05:42] LABS: Basophils % 0.3 %; Hemoglobin 8.5 g/dL (12.9-16.9); Segmented Neutrophils % 85.4 %
[2017-05-27 05:43] LABS: Basophils # 0.1 K/mcL (0.0-0.2); Hematocrit 30.2 % (37.5-50.1); Immature Granulocytes % 3.6 % (0-4); Lymphocytes # 0.9 K/mcL (0.6-4.6); Lymphocytes % 5.1 %; Mean Corpuscular HGB Conc 28.1 g/dL (31.6-35.5); Mean Corpuscular Hemoglobin 28.8 pg (28.0-33.3); Mean Corpuscular Volume 102.4 fL (83.0-100.0); Mean Platelet Volume 10.3 fL (9.4-12.4); Monocytes % 5.6 %; Neutrophils # 15.5 K/mcL (1.6-8.9); Nucleated Red Blood Cells 0.2 /100 WBC (0); Platelet Count 496 K/mcL (140-400); Red Blood Count 2.95 M/mcL (4.19-5.50); Red Cell Distribution Width 16.6 % (11.5-14.5)
[2017-05-27 05:49] LABS: INR 3.1; Prothrombin Time 34.7 Seconds (9.4-12.1)
[2017-05-27 05:51] LABS: Activated Partial Thrombo Time 45.6 Seconds (26.0-36.0)
[2017-05-27] MEDS ORDERED: Piperacillin/Tazobactam 3.375 GM/200 ML BAG IVPB SCH (06:00)
[2017-05-27 06:04] LABS: Calcium 7.8 mg/dL (8.6-10.3)
[2017-05-27 06:39] LABS: Bilirubin,Urine Small (Negative); Clarity,Urine Turbid (Clear); Color,Urine Yellow (Yellow); Glucose,Urine (UA) Normal (Normal)
[2017-05-27 06:40] LABS: Blood,Urine Large (Negative); Ketones,Urine 15 mg/dL (Negative); Leukocyte Esterase,Urine Large (Negative); Nitrite,Urine Negative (Negative); Protein,Urine 100 mg/dL (Neg-Trace); RBC,Urine TNTC per hpf (0-3); Specific Gravity,Urine 1.022 (1.010-1.025); Squamous Epithelial Cell,Urine Few per lpf (None-Few); Urobilinogen,Urine Normal (Normal); WBC,Urine 0-3 per hpf (0-3)
[2017-05-27 06:41] LABS: Amorphous Sediment,Urine Moderate (Few); Bacteria,Urine None Seen per hpf (None-Few); Hyaline Casts,Urine None Seen per lpf (None-Few); Yeast,Urine Moderate per hpf (None Seen)
[2017-05-27] MEDS ORDERED: Vancomycin 1 EACH in D5% in Water 250 ML IVPB PRN (07:00)
--- NOTE | 2017-05-27 07:17 | Pulmonology Consult Note ---
<Rogers Anne - Last Filed: 05/27/17 11:11> Date of Encounter: 05/27/17 Time of Encounter: 07:16 Assessment and Plan (1) Acute respiratory failure with hypoxia Current Visit: Yes Status: Acute Patient was satting at 74% lateral to the ED requiring initial BiPAP and subsequent endotracheal intubation Chest x-ray and chest CT: Demonstrate bilateral pleural effusions without any consolidative process Ventilator settings VC+, Rate 24, TV 420, FiO2 90 and PEEP 8 Most recent ABG shows pH 7.19, PCO2 35, PO2 121 and HCO3 13 Likely secondary to suspected septic shock We will continue ventilator support per family's wishes CODE STATUS to DNR CCA, does not want any aggressive intervention at this time. Family wants to keep him alive with enough time to have children fly in from [place] to see him. (2) Septic shock Current Visit: Yes Status: Suspected Suspected septic shock due to ischemic limb Patient was found to be 50/38 the pulse of 78 on arrival Left IJ CVC was placed in the emergency room with Levophed started Patient has received a total of 5 L of fluid Lactic acid has been greater than 10 CTA of the abdomen and pelvis was unremarkable Continue IV antibiotics with vancomycin and Zosyn Discontinue maintenance fluids and bicarbonate infusion Pressure support; Levophed up to 10 (3) Lactic acidosis Current Visit: Yes Status: Acute LA greater than 102 CTA abdomen and pelvis injury no acute findings Likely due to ischemic left upper extremity with MODS - acute renal failure with acute liver failure 2/2 to shock (AST >3000, ALT 226, Ammonia 65) Nephro to manage bicarb drip No further aggressive intervention (4) MODS (multiple organ dysfunction syndrome) Current Visit: Yes Status: Acute See above (5) Ischemic steal syndrome Current Visit: Yes Status: Acute Patient was discharged from the [facility] on 05/11/17 after he was found to have suspected left upper extremity cellulitis versus gangrene and was ultimately transferred to [place] for further recommendations with vascular and plastic surgery. Of note, during his admission he was found to have ischemic steal syndrome secondary to AV fistula complication with less likely etiology due to infectious cause. Patient underwent AV fistula ligation as well as I&D/Integra placement and wound VAC on 05/23/17. At that time, plastic surgery was planning staged split-thickness skin graft in 3 weeks. Patient tolerated the procedure well and was discharged to [facility] in [place] on 05/25/17. On arrival to the ED overnight, his left upper extremity had no pulse in his fingertips appeared dusky in color. Left upper extremities CT scan pending Vascular surgery was consulted After significant discussion with and family, we will not proceed with any further aggressive intervention (6) Elevated troponin Current Visit: Yes Status: Acute Troponin trending up from 2.25-4.17 Cardiology consultation Heparin drip was started last night We will continue to trend (7) Pleural effusion Current Visit: Yes Status: Acute Bilateral pleural effusions were seen on the chest x-ray and CTA of chest (8) Complication of AV dialysis fistula Current Visit: No Status: Acute See above Qualifiers: Encounter type: sequela Qualified Code(s): T82.9XXS - Unspecified complication of cardiac and vascular prosthetic device, implant and graft, sequela (9) ESRD (end stage renal disease) on dialysis Current Visit: No Status: Chronic Follows Dr. Goncalves as an outpatient Hemodialysis was recently stopped early due to hypotension Creatinine trending up from 3.7-4.18 Nephrology was consulted for possible Shelbi therapy but will hold off at this time due to unlikely benefit for patient in his current condition and family's wishes for no further aggressive intervention. They will manage bicarb drip for patient today (10) Atrial fibrillation Current Visit: No Status: Chronic Previously on Coumadin therapy Patient was started on heparin drip for elevated troponins Qualifiers: Atrial fibrillation type: paroxysmal Qualified Code(s): I48.0 - Paroxysmal atrial fibrillation (11) CAD (coronary artery disease) Current Visit: No Status: Chronic Qualifiers: Coronary Disease-Associated Artery/Lesion type: unspecified vessel or lesion type [place] vs. transplanted heart: [place] heart Associated angina: without angina Qualified Code(s): I25.10 - Atherosclerotic heart disease of [place] coronary artery without angina pectoris (12) Diabetes Current Visit: No Status: Chronic Sliding scale for coverage Qualifiers: Diabetes mellitus type: type 2 Diabetes mellitus complication status: without complication Diabetes mellitus nursing home insulin use: with nursing home use Qualified Code(s): E11.9 - Type 2 diabetes mellitus without complications ; Z79.4 - manager intermediate (current) use of insulin; Z79.4 - manager intermediate (current) use of insulin; Z79.4 - manager intermediate (current) use of insulin; Z79.4 - long-term ( current) use of insulin (13) DVT prophylaxis Current Visit: No Status: Acute Currently on a heparin drip History of Present Illness History of present illness: Mr. Nicole is a very pleasant 76-year-old male with a past history of coronary artery disease with stents) pacemaker, ESRD on dialysis, chronic atrial fibrillation on Coumadin therapy, type 2 diabetes on insulin therapy, GERD, peripheral vascular disease and previous CVA with left-sided weakness presented to the [facility] emergency department last night after undergoing hemodialysis drop in his blood pressure. On arrival to the emergency department, patient's blood sugar was noted to be in the 30s, oxygen saturation 74, and blood pressure was 50/38. Patient was administered glucose and a left IJ CVC was placed; epinephrine drip was started. Additionally, he underwent endotracheal intubation due to hypoxia after BiPAP was attempted and ultimately status. Initial workup with chest x-ray and CT of the chest demonstrates small pericardial effusion as well as bilateral pleural effusions. No acute consolidative process. Patient was also found to have an elevated lactic acid of greater than 10, leukocytosis 20, CK trending 332-1245 and troponin trending up from 2.25-4.17. Heparin drip was started on arrival. Initial ABG demonstrates pH 7.29, PCO2 30, PO2 220, HCO3 14. Patient was started on 3 L bolus of normal saline in the emergency room as well as Zyvox and Zosyn. Admitting team consulted cardiology and vascular surgery for further recommendations. Patient was subsequently admitted to the intensive care unit, and thus, pulmonary/critical care team was consulted. On review, patient was recently admitted to [facility] on 05/10 for suspected left upper extremity cellulitis. He previously underwent left upper extremity AV fistula on 04/13/[address] Ambrose for his end-stage renal disease. Patient additionally has a permacath in his right IJ. At that time, there is a suspicion for gangrene and he was ultimately transferred to [place] for further recommendations by plastic and vascular surgery. Of note , patient was found to have ischemic steal syndrome secondary to AV fistula complication. Patient had AV fistula ligation and subsequent left forearm incision and debridement with Integra and wound VAC placed on 05/23/17. At that time, plastic surgery was planning for a staged future split-thickness skin graft in 3 weeks. Mr. Nicole was discharged in stable condition to [facility] in [place] on 05/25/17. Today on evaluation, patient appears to be in critical condition that is worsening. ARDS ventilator settings were started. Vancomycin was initiated and Zyvox discontinued. Creatinine trending up to 4.18 and nephrology was consulted for possible Shelbi therapy. Examination shows a pulseless left upper extremity with dusky fingertips. Black eschar noted in the left upper extremity. Wound VAC is in place and rhys present about incision without any purulent discharge. Levaphed is up to 10 this morning and has received a total of 5L fluid. Records were requested on admission from [place] and were reviewed this morning. Family at bedside and we will continue to monitor patient closely and offer any further recommendations as needed. Past Med Surg Social Fam HX - Past Medical History Medical history: atrial fibrillation, COPD, coronary artery disease, diabetes, GERD, hyperlipidemia, hypertension, myocardial infarction, other Psychiatric history: no psych history, anxiety - Past Surgical History Surgical History: bariatric surgery, cholecystectomy, pacemaker/AICD, other - Social History Smoking Status: Never smoker Smokeless Tobacco Status: No Alcohol use: none Drug use: none - Family History Mother Family Member Ethnicity: Non- Living Status: Hx Family Cardiac Disorders: Yes (DE, HTN) Hx Family Endocrine Disorder: Yes (DM) Brother Family Member Ethnicity: Non- Living Status: Sister Family Member Ethnicity: Non- Living Status: Still Living Hx Family Endocrine Disorder: Yes (DM) Father Family Member Ethnicity: Non- Living Status: Hx Family Cardiac Disorders: Yes (Stroke) Hx Family Respiratory Disorders: No Hx Family Cancer: No Hx Family GI Disorders: No Hx Family Endocrine Disorder: No Hx Family Neuromuscular Disorders: No Hx Family Neurologic Disorders: No Hx Family HEENT Disorders: No Hx Family Autoimmune Disorders: No Medications and Allergies Atorvastatin [Lipitor] 40 mg PO HS 09/07/15 [History] Calcitriol [Rocaltrol] 0.25 mcg PO BID 09/07/15 [History] Cyanocobalamin (Vitamin B-12) [Vitamin B-12] 500 mcg PO DAILY 09/07/15 [History] Warfarin [Coumadin] 2.5 mg PO [id number] 09/07/15 [History] Calcium Acetate 667 mg PO TID 04/13/17 [History] Cilostazol [Pletal] 100 mg PO BID 04/13/17 [History] Gabapentin [Neurontin] 300 mg PO HS #30 capsule 04/28/17 [Rx] clonazePAM [Klonopin] 0.5 mg PO HS #5 tablet 04/28/17 [Rx] Polyethylene Glycol 3350 [MiraLAX] 17 gm PO HS 05/11/17 [History] Acetaminophen [Tylenol] 650 mg PO Q6H PRN 05/26/17 [History] Aspirin Enteric Coated [Aspirin EC] 81 mg PO DAILY 05/26/17 [History] Bisacodyl [Dulcolax] 10 mg RC DAILY PRN 05/26/17 [History] Calcium Carbonate/Vitamin D3 [Calcium 500-Vit D3 200 Tablet] 1 each PO DAILY [History] Insulin Glargine [Lantus] 8 unit SQ HS 05/26/17 [History] Insulin LISPRO [HumaLOG] 2 - 10 unit SQ TID 05/26/17 [History] Metoprolol [Lopressor] 25 mg PO BID 05/26/17 [History] Omeprazole [PriLOSEC] 40 mg PO DAILY 05/26/17 [History] Oxycodone HCl 5 mg PO Q6H PRN 05/26/17 [History] Sevelamer [Renvela] 800 mg PO TIDWM 05/26/17 [History] 3 Allergy/AdvReac Type Severity Reaction Status Date / Time Sulfa (Sulfonamide Allergy Rash Verified 04/30/17 09:49 Antibiotics) ROS unobtainable: due to endotracheal tube All Systems: A 10-system review of systems was performed and is negative for pertinent findings except as documented above in the HPI. Physical Examination Vital Signs: Vital Signs, Last 4 Hours Temp Pulse Resp BP Pulse Ox 05/27/17 06:02 27 139/60 05/27/17 06:00 91 26 99/55 05/27/17 05:00 91 26 139/60 05/27/17 04:56 95.9 F L 05/27/17 04:00 89 24 89/59 95 Ventilator Settings Ventilator Settings: Ventilator Settings, Last 8 Hours Ventilator Mode VC+ Ventilator Mode VC+ Ventilator Mode VC+ Ventilator Mode VC+ Ventilator Mode VC+ Ventilator Mode VC+ Ventilator Mode VC+ Ventilator Mode VC+ Ventilator Tidal Volume 420 Setting Ventilator Tidal Volume 420 Setting Ventilator Tidal Volume 420 Setting Ventilator Tidal Volume 420 Setting Ventilator Tidal Volume 420 Setting Ventilator Tidal Volume 550 Setting Ventilator Tidal Volume 550 Setting Ventilator Tidal Volume 550 Setting Ventilator Respiratory Rate 22 Setting Ventilator Respiratory Rate 14 Setting Ventilator Respiratory Rate 22 Setting Ventilator Respiratory Rate 14 Setting Ventilator Respiratory Rate 14 Setting Ventilator Respiratory Rate 14 Setting Ventilator Respiratory Rate 14 Setting Ventilator Respiratory Rate 14 Setting Actual Respiratory Rate 27 Actual Respiratory Rate 24 Actual Respiratory Rate 24 Actual Respiratory Rate 23 Actual Respiratory Rate 14 Actual Respiratory Rate 14 Actual Respiratory Rate 14 Positive End Expiratory 10 Pressure Positive End Expiratory 10 Pressure Positive End Expiratory 10 Pressure Positive End Expiratory 10 Pressure Positive End Expiratory 10 Pressure Positive End Expiratory 10 Pressure Positive End Expiratory 10 Pressure Positive End Expiratory 10 Pressure Peak Inspiratory Airway 16 Pressure Peak Inspiratory Airway 20 Pressure Peak Inspiratory Airway 23 Pressure Peak Inspiratory Airway 20 Pressure Peak Inspiratory Airway 23 Pressure Peak Inspiratory Airway 23 Pressure Results - Laboratory Findings CBC and BMP: 05/27/17 05:30 05/27/17 05:30 ABG ABG pH 7.19 pH Units (7.32-7.45) L* 05/27/17 03:53 ABG pCO2 35 mmHg (35-45) 05/27/17 03:53 ABG pO2 121 mmHg (85-104) H D 05/27/17 03:53 ABG O2 Saturation 98 % (95-98) 05/27/17 03:53 PT/INR, D-dimer PT 34.7 Seconds (9.4-12.1) H 05/27/17 05:30 Abnormal lab findings: Abnormal lab results WBC 18.2 K/mcL (4.3-11.1) H 05/27/17 05:30 RBC 2.95 M/mcL (4.19-5.50) L 05/27/17 05:30 Hgb 8.5 g/dL (12.9-16.9) L 05/27/17 05:30 Hct 30.2 % (37.5-50.1) L 05/27/17 05:30 MCV 102.4 fL (83.0-100.0) H 05/27/17 05:30 MCHC 28.1 g/dL (31.6-35.5) L 05/27/17 05:30 RDW 16.6 % (11.5-14.5) H 05/27/17 05:30 Plt Count 496 K/mcL (140-400) H 05/27/17 05:30 Myelocytes % 4.0 % (0) H 05/26/17 20:10 Neutrophils # 18.4 K/mcL (1.6-8.9) H 05/26/17 20:10 Nucleated RBCs/100 WBC 0.2 /100 WBC (0) H 05/27/17 05:30 Polychromasia 1+ (Not Present) A 05/26/17 20:10 Hypochromasia Present (Not Present) A 05/26/17 20:10 PT 34.7 Seconds (9.4-12.1) H 05/27/17 05:30 APTT 45.6 Seconds (26.0-36.0) H 05/27/17 05:30 ABG pH 7.19 pH Units (7.32-7.45) L* 05/27/17 03:53 ABG pO2 121 mmHg (85-104) H D 05/27/17 03:53 ABG HCO3 13 mEq/L (21-27) L 05/27/17 03:53 ABG Total CO2 14 mEq/L (20-26) L 05/27/17 03:53 ABG Base Excess -14 mEq/L (-2 to 3) L 05/27/17 03:53 Sodium 130 mEq/L (136-145) L 05/27/17 05:30 Chloride 92 mEq/L (98-107) L 05/27/17 05:30 Carbon Dioxide 16 mEq/L (23-29) L 05/27/17 05:30 BUN 28 mg/dL (8-23) H 05/27/17 05:30 Creatinine 4.18 mg/dL (0.70-1.30) H 05/27/17 05:30 Est GFR ( Amer) 17 (> 60) L 05/27/17 05:30 Est GFR (Non-Af Amer) 14 (> 60) L 05/27/17 05:30 Glucose 397 mg/dL (70-105) H 05/27/17 05:30 POC Glucose 230 (58-89) H 05/26/17 23:30 Lactic Acid > 10.0 mmol/L (0.5-2.2) H* 05/27/17 05:30 Calcium 7.8 mg/dL (8.6-10.3) L 05/27/17 05:30 Direct Bilirubin 0.6 mg/dL (0.0-0.2) H 05/26/17 20:10 AST > 3000 Units/L (13-39) H 05/26/17 20:10 ALT 226 Units/L (7-52) H 05/26/17 20:10 Alkaline Phosphatase 268 Units/L (34-104) H 05/26/17 20:10 Ammonia 65 mcmol/L (16-53) H 05/26/17 20:10 Creatine Kinase 1245 Units/L (30-223) H 05/27/17 05:30 Troponin I 4.17 ng/mL (< 0.04) H* 05/27/17 05:30 Serum Total Protein 5.9 g/dL (6.4-8.9) L 05/26/17 20:10 Albumin 2.2 g/dL (3.5-5.7) L 05/26/17 20:10 Globulin 3.7 g/dL (2.4-3.5) H 05/26/17 20:10 Albumin/Globulin Ratio 0.6 (1.1-2.2) L 05/26/17 20:10 Urine Clarity Turbid (Clear) A 05/27/17 00:51 Urine Protein 100 mg/dL (Neg-Trace) H 05/27/17 00:51 Urine Ketones 15 mg/dL (Negative) H 05/27/17 00:51 Urine Blood Large (Negative) H 05/27/17 00:51 Urine Bilirubin Small (Negative) H 05/27/17 00:51 Ur Leukocyte Esterase Large (Negative) H 05/27/17 00:51 Urine Microscopic RBC TNTC per hpf (0-3) H 05/27/17 00:51 Amorphous Sediment Moderate (Few) H 05/27/17 00:51 Urine Yeast Moderate per hpf (None Seen) H 05/27/17 00:51 Ur Culture Indicated? YES (NO) A 05/27/17 00:51 - Clinical Findings Intake & Output: Intake & Output 05/26/17 05/26/17 05/27/17 15:59 23:59 07:59 Intake Total 1680 / 1680 Output Total 300 / 300 Balance 1380 / 1380 Weight 104 kg Consult Discharge Plan - Plan Referrals: Jace Will, [Primary Care Provider] - <Rush Easton W - Last Filed: 05/27/17 11:37> Date of Encounter: 05/27/17 All Systems: A 10-system review of systems was performed and is negative for pertinent findings except as documented above in the HPI. Physical Examination Vital Signs: Vital Signs, Last 4 Hours Temp Pulse Resp BP Pulse Ox 05/27/17 08:22 64 05/27/17 08:00 97.8 F 91 27 89/47 95 05/27/17 06:02 27 139/60 05/27/17 06:00 91 26 99/55 Ventilator Settings Ventilator Settings: Ventilator Settings, Last 8 Hours Ventilator Mode VC+ Ventilator Mode VC+ Ventilator Mode VC+ Ventilator Mode VC+ Ventilator Mode VC+ Ventilator Mode VC+ Ventilator Tidal Volume 420 Setting Ventilator Tidal Volume 420 Setting Ventilator Tidal Volume 420 Setting Ventilator Tidal Volume 420 Setting Ventilator Tidal Volume 420 Setting Ventilator Tidal Volume 420 Setting Ventilator Respiratory Rate 22 Setting Ventilator Respiratory Rate 22 Setting Ventilator Respiratory Rate 14 Setting Ventilator Respiratory Rate 22 Setting Ventilator Respiratory Rate 14 Setting Ventilator Respiratory Rate 14 Setting Actual Respiratory Rate 27 Actual Respiratory Rate 27 Actual Respiratory Rate 24 Actual Respiratory Rate 24 Actual Respiratory Rate 23 Positive End Expiratory 10 Pressure Positive End Expiratory 10 Pressure Positive End Expiratory 10 Pressure Positive End Expiratory 10 Pressure Positive End Expiratory 10 Pressure Positive End Expiratory 10 Pressure Peak Inspiratory Airway 16 Pressure Peak Inspiratory Airway 16 Pressure Peak Inspiratory Airway 20 Pressure Peak Inspiratory Airway 23 Pressure Peak Inspiratory Airway 20 Pressure Results - Laboratory Findings CBC and BMP: 05/27/17 05:30 05/27/17 05:30 ABG ABG pH 7.19 pH Units (7.32-7.45) L* 05/27/17 03:53 ABG pCO2 35 mmHg (35-45) 05/27/17 03:53 ABG pO2 121 mmHg (85-104) H D 05/27/17 03:53 ABG O2 Saturation 98 % (95-98) 05/27/17 03:53 PT/INR, D-dimer PT 34.7 Seconds (9.4-12.1) H 05/27/17 05:30 Abnormal lab findings: Abnormal lab results WBC 18.2 K/mcL (4.3-11.1) H 05/27/17 05:30 RBC 2.95 M/mcL (4.19-5.50) L 05/27/17 05:30 Hgb 8.5 g/dL (12.9-16.9) L 05/27/17 05:30 Hct 30.2 % (37.5-50.1) L 05/27/17 05:30 MCV 102.4 fL (83.0-100.0) H 05/27/17 05:30 MCHC 28.1 g/dL (31.6-35.5) L 05/27/17 05:30 RDW 16.6 % (11.5-14.5) H 05/27/17 05:30 Plt Count 496 K/mcL (140-400) H 05/27/17 05:30 Myelocytes % 4.0 % (0) H 05/26/17 20:10 Neutrophils # 15.5 K/mcL (1.6-8.9) H 05/27/17 05:30 Nucleated RBCs/100 WBC 0.2 /100 WBC (0) H 05/27/17 05:30 Polychromasia 1+ (Not Present) A 05/26/17 20:10 Hypochromasia Present (Not Present) A 05/26/17 20:10 PT 34.7 Seconds (9.4-12.1) H 05/27/17 05:30 APTT 45.6 Seconds (26.0-36.0) H 05/27/17 05:30 ABG pH 7.19 pH Units (7.32-7.45) L* 05/27/17 03:53 ABG pO2 121 mmHg (85-104) H D 05/27/17 03:53 ABG HCO3 13 mEq/L (21-27) L 05/27/17 03:53 ABG Total CO2 14 mEq/L (20-26) L 05/27/17 03:53 ABG Base Excess -14 mEq/L (-2 to 3) L 05/27/17 03:53 Sodium 130 mEq/L (136-145) L 05/27/17 05:30 Chloride 92 mEq/L (98-107) L 05/27/17 05:30 Carbon Dioxide 16 mEq/L (23-29) L 05/27/17 05:30 BUN 28 mg/dL (8-23) H 05/27/17 05:30 Creatinine 4.18 mg/dL (0.70-1.30) H 05/27/17 05:30 Est GFR ( Amer) 17 (> 60) L 05/27/17 05:30 Est GFR (Non-Af Amer) 14 (> 60) L 05/27/17 05:30 Glucose 397 mg/dL (70-105) H 05/27/17 05:30 POC Glucose 230 (58-89) H 05/26/17 23:30 Lactic Acid > 10.0 mmol/L (0.5-2.2) H* 05/27/17 05:30 Calcium 7.8 mg/dL (8.6-10.3) L 05/27/17 05:30 Direct Bilirubin 0.6 mg/dL (0.0-0.2) H 05/26/17 20:10 AST > 3000 Units/L (13-39) H 05/26/17 20:10 ALT 226 Units/L (7-52) H 05/26/17 20:10 Alkaline Phosphatase 268 Units/L (34-104) H 05/26/17 20:10 Ammonia 65 mcmol/L (16-53) H 05/26/17 20:10 Creatine Kinase 1245 Units/L (30-223) H 05/27/17 05:30 Troponin I 4.17 ng/mL (< 0.04) H* 05/27/17 05:30 Serum Total Protein 5.9 g/dL (6.4-8.9) L 05/26/17 20:10 Albumin 2.2 g/dL (3.5-5.7) L 05/26/17 20:10 Globulin 3.7 g/dL (2.4-3.5) H 05/26/17 20:10 Albumin/Globulin Ratio 0.6 (1.1-2.2) L 05/26/17 20:10 Urine Clarity Turbid (Clear) A 05/27/17 00:51 Urine Protein 100 mg/dL (Neg-Trace) H 05/27/17 00:51 Urine Ketones 15 mg/dL (Negative) H 05/27/17 00:51 Urine Blood Large (Negative) H 05/27/17 00:51 Urine Bilirubin Small (Negative) H 05/27/17 00:51 Ur Leukocyte Esterase Large (Negative) H 05/27/17 00:51 Urine Microscopic RBC TNTC per hpf (0-3) H 05/27/17 00:51 Amorphous Sediment Moderate (Few) H 05/27/17 00:51 Urine Yeast Moderate per hpf (None Seen) H 05/27/17 00:51 Ur Culture Indicated? YES (NO) A 05/27/17 00:51 - Clinical Findings Intake & Output: Intake & Output 05/26/17 05/27/17 05/27/17 23:59 07:59 15:59 Intake Total 1805 / 1805 1920 / 1920 Output Total 300 / 300 Balance 1505 / 1505 192 / 1920 Weight 104 kg - Attending Attestation I examined this patient and my medical decision-making was reviewed with the Resident Physician. I agree with the documented findings, disposition and treatment plan as described except to the extent set forth below. We independently had [id number] contact with the patient I spent 65min of Critical Care time with this patient. It involved decision making of high complexity to assess, manipulate, and support vital organ system failure and/or to prevent further life threatening deterioration of the patient' s condition. The time involved in the performance of separately reportable procedures was not counted toward critical care time. Patient seen and examined at bedside Labs, radiology, chart personally reviewed. Management was reviewed during multidisciplinary critical care rounds. ELECTRICAL SIGN WIRER HELPER: Encephalopathic on vent. Head CT wnl. Analgesis provided with fentanyl Pulm: Acute hypoxic respiratory failure on vent. Low tidal volume ventilation strategy because of high risk of development of ARDS. Acceptable gas exchange. Wean Fio2 to gaol Pao2 around 60. Cards: Vasodiliatory shock with lacate >upper limits of lab assay. MOSF. Cont Vasopressors. Suspected Troponin elevation s/t Demand ischemia. ECHO pending Cardiology Consulted overnight. FEN-GI:NPO for now. PPi given Ishcemic Hepatitis Renal: ESRD with multile electrolyte derangements Nephrology follwoing. Monitor hyperkalemia. Mild Rhado which we are followign ID: Septic Shock s/t to limb necrosis. Heme/Onc: Cont Heparin for limb ischemia via gtt per vasc surgery recs. . hold heparin INR therapeutic currently high risk for hemorrhage we will monitor this carefully. Endo: Glucose Monitored Hypoglycemia on admission now hyperglycemic. start Insulin Integ/MSK: Skin Care per routine ICU Nursing Protocol to prevent ulcers. Deana necrosis but patient not surgical candidate. D/w Vascular Surgeon at bedside. Lines: All lines examined without evidence of infection : Dispo: Remain in ICU for critical illness. CODE: DNAR I had a lengthy conversation with the patient's next of kin/power of employment law attorney his and his son and later via phone his daughter. I explained overall prognosis is extremely poor likely would need surgery to remove ischemic limb but survivability of operation is low as well given presentation with shock and multiorgan system failure. is very clear that patient would not want to continue to receive critical treatment when speaking with the daughter on the phone via speaker in the presence of the ICU nurse and daughter wanted to continue treatment for 24 hours to see how clinical course would go family deciding if they want to take that option or withdraw care at this time per plan to no escalate care while daughter in route to see father prior to withdrawing. Will cont to discuss with family. The patient is unable or incompetent to participate in giving a history and/or making treatment decisions. The discussion was necessary for determining treatment decision. This discussion took place in the [ICU]. The total meeting time was [25minutes]
[2017-05-27] MEDS ORDERED: Vancomycin 1,500 MG in D5% in Water 250 ML IVPB ONE (09:00)
[2017-05-27 09:41] LABS: Platelet Estimate Increased (Normal)
--- NOTE | 2017-05-27 09:41 | Nephrology Consult Note ---
Date of Encounter: 05/27/17 Time of Encounter: 09:10 Assessment and Plan (1) ESRD (end stage renal disease) on dialysis Current Visit: No Status: Chronic Long discussion with the and son including pt's goals of care and desire for his daughters to see him. Hyponatremia, hypocalcemia, AGMA with lactic acidosis, AMS and rising CK ( potentially Rhabd). Hypotensive on pressors. Described to the pt's various renal options. Dr. Ambrose was also present and helped escalating the level of care and starting Shelbi for clearance, electrolyte mgt, volume status mgt and acid-base mgt So will hold off on starting the much more involved and much more intensive modality of [employer] (CVVHDF), and provide a gentle rate of a bicarb gtt. Monitor PNa and serum Ca. Thank you for consulting the [facility] service. My colleague Dr. Cancino will be on-call tomorrow at 8am. (2) Acute respiratory failure with hypoxia Current Visit: Yes Status: Acute (3) Altered mental status Current Visit: Yes Status: Acute Qualifiers: Altered mental status type: unspecified Qualified Code(s): R41.82 - Altered mental status, unspecified (4) Elevated troponin Current Visit: Yes Status: Acute (5) Hypotension Current Visit: Yes Status: Acute Qualifiers: Hypotension type: unspecified hypotension type Qualified Code(s): I95.9 - Hypotension, unspecified (6) Ischemic steal syndrome Current Visit: Yes Status: Acute (7) Lactic acidosis Current Visit: Yes Status: Acute (8) Rhabdomyolysis Current Visit: Yes Status: Acute Qualifiers: Encounter type: subsequent encounter Qualified Code(s): T79.6XXD - Traumatic ischemia of muscle, subsequent encounter (9) Hyponatremia Current Visit: Yes Status: Acute History of Present Illness - Reason for Consult Consult date: 05/27/17 end stage renal disease, metabolic acidosis Requesting physician: Rush Easton - Chief Complaint ESRD, Hypotension, AMS, LUE wound - History of Present Illness Pawan Nicole is a very pleasant 76 y/o WM well known to me who presented to the ER after worsening (hypotension, AMS, pupillary changes) while on his first outpatient dialysis since discharge from [facility]. He was admitted to the ICU and intubated with AMS and concern for severe sepsis with a notable lactic acidosis. Most medical records are still pending from [place], but it appears the pt underwent an attempt to salvage the LUE with Plastic Surgery but his arm appears to have continued to worsen. While rounding this AM , I saw the pt in the ICU with his , son and Dr. Ambrose. We had a long family meeting regarding goals of care and plans to not escalate care while awaiting the arrival of his daughters from [place]. Further HPI and ROS are limited d/t intubation and AMS. Past Med Surg Social Fam HX - Past Medical History Medical history: atrial fibrillation, COPD, coronary artery disease, diabetes, GERD, hyperlipidemia, hypertension, myocardial infarction, other Psychiatric history: no psych history, anxiety - Past Surgical History Surgical History: bariatric surgery, cholecystectomy, pacemaker/AICD, other - Social History Smoking Status: Never smoker Smokeless Tobacco Status: No Alcohol use: none Drug use: none - Family History Mother Family Member Ethnicity: Non- Living Status: Hx Family Cardiac Disorders: Yes (CT, HTN) Hx Family Endocrine Disorder: Yes (DM) Brother Family Member Ethnicity: Non- Living Status: Sister Family Member Ethnicity: Non- Living Status: Still Living Hx Family Endocrine Disorder: Yes (DM) Father Family Member Ethnicity: Non- Living Status: Hx Family Cardiac Disorders: Yes (Stroke) Hx Family Respiratory Disorders: No Hx Family Cancer: No Hx Family GI Disorders: No Hx Family Endocrine Disorder: No Hx Family Neuromuscular Disorders: No Hx Family Neurologic Disorders: No Hx Family HEENT Disorders: No Hx Family Autoimmune Disorders: No Medications and Allergies Atorvastatin [Lipitor] 40 mg PO HS 09/07/15 [History] Calcitriol [Rocaltrol] 0.25 mcg PO BID 09/07/15 [History] Cyanocobalamin (Vitamin B-12) [Vitamin B-12] 500 mcg PO DAILY 09/07/15 [History] Warfarin [Coumadin] 2.5 mg PO SUTUWETHFRSA 09/07/15 [History] Calcium Acetate 667 mg PO TID 04/13/17 [History] Cilostazol [Pletal] 100 mg PO BID 04/13/17 [History] Gabapentin [Neurontin] 300 mg PO HS #30 capsule 04/28/17 [Rx] clonazePAM [Klonopin] 0.5 mg PO HS #5 tablet 04/28/17 [Rx] Polyethylene Glycol 3350 [MiraLAX] 17 gm PO HS 05/11/17 [History] Acetaminophen [Tylenol] 650 mg PO Q6H PRN 05/26/17 [History] Aspirin Enteric Coated [Aspirin EC] 81 mg PO DAILY 05/26/17 [History] Bisacodyl [Dulcolax] 10 mg RC DAILY PRN 05/26/17 [History] Calcium Carbonate/Vitamin D3 [Calcium 500-Vit D3 200 Tablet] 1 each PO DAILY [History] Insulin Glargine [Lantus] 8 unit SQ HS 05/26/17 [History] Insulin LISPRO [HumaLOG] 2 - 10 unit SQ TID 05/26/17 [History] Metoprolol [Lopressor] 25 mg PO BID 05/26/17 [History] Omeprazole [PriLOSEC] 40 mg PO DAILY 05/26/17 [History] Oxycodone HCl 5 mg PO Q6H PRN 05/26/17 [History] Sevelamer [Renvela] 800 mg PO TIDWM 05/26/17 [History] 3 Allergy/AdvReac Type Severity Reaction Status Date / Time Sulfa (Sulfonamide Allergy Rash Verified 04/30/17 09:49 Antibiotics) Review of Systems ROS unobtainable: due to endotracheal tube, due to mental status Exam - Vital Signs Vital signs: Initial Vital Signs Temp Pulse Resp BP Pulse Ox 0 F L 78 12 50/38 0 05/26/17 19:11 05/26/17 19:11 05/26/17 19:11 05/26/17 19:11 05/26/17 19:11 Vital Signs - Last 8 Hours Temp Pulse Resp BP Pulse Ox 05/27/17 08:22 64 05/27/17 08:15 26 94 05/27/17 08:00 97.8 F 91 27 89/47 95 05/27/17 07:28 21 05/27/17 06:02 27 139/60 05/27/17 06:00 91 26 99/55 05/27/17 05:00 91 26 139/60 05/27/17 04:56 95.9 F L 05/27/17 04:00 89 24 89/59 95 05/27/17 03:00 93 22 100/54 98 05/27/17 02:17 23 106/63 99 05/27/17 02:00 129 22 119/67 Intake and Output 05/26/17 05/27/17 05/27/17 23:59 07:59 15:59 Intake Total 1805 / 1805 1920 / 1920 Output Total 300 / 300 Balance 1505 / 1505 1920 / 1920 Intake: IV Fluids 1805 / 1805 1920 / 1920 0.9 % Sodium Chloride 1,000 ML 400 / 400 @ 3750 mls/hr IVC .Q16M [facility] Rx# :[id number] D5% And 0.45% Nacl 1000 Ml Bag 1581 / 1581 1,000 ML @ 125 mls/hr IVC .Q8H [facility] Rx#:[id number] PRECEDEX Premix 400 mcg In 100 55 / 55 ml @ 0.2 MCG/KG/HR 5.2 mls/hr IVC .[id number] [facility] Rx#:[id number] FentaNYL (PF) 1,000 MCG In 0.9 14 / 14 % Sodium Chloride 80 ML @ 25 MCG/HR 2.5 mls/hr IVC CONT [facility] Rx#:[id number] Levophed 4 MG In Dextrose 5% 30 / 30 250 ML @ 8 MCG/MIN 30.48 mls/hr IVC CONT [facility] Rx#:[id number] Sodium Bicarbonate 150 MEQ In 125 / 125 Dextrose 5% 1,000 ML @ 125 mls/ hr IVC .Q9H12M [facility] Rx#: [id number] Zosyn 3.375 GM In Water for inj 20 / 20 . (sterile) 20 ML @ 400 mls/hr IVP ONCE [facility] Rx#:[id number] Zyvox Premix 600mg/300mL 600 mg 300 / 300 In 300 ml @ 150 mls/hr IVPB Q12HR [facility] Rx#:[id number] Zosyn Premix 3.375 GM/200 ML 3. 200 / 200 375 gm In 200 ml @ 50 mls/hr IVPB Q8H [facility] Rx#:[id number] Output: Catheter 300 / 300 Urethral (Patricia) 300 / 300 Other: Stool Size Copious Stool Consistency soft Stool Color Brown # Bowel Movements 1 Weight 104 kg Blood Glucose* 230 Patient Weight 05/27/17 23:59 Weight 104 kg - General Appearance General appearance: severe distress, chronically ill, sedated on ventilator, intubated, comatose EENT: mucous membranes moist Neck: supple Respiratory: clear Cardiology: edema, normal S1, normal S2 - Dialysis Access Dialysis Vascular Access: Venous Catheter (Right Permacath with dressing C/D/I) Gastrointestinal: normoactive bowel sounds, no tenderness, no guarding Integumentary: erythema (LUE with open skin along the forearm and several healing incision sites), ecchymotic Neurologic: obtunded Musculoskeletal: no clubbing Results - Lab Results 05/28/17 03:16 05/28/17 03:16 Most recent lab results ABG pH 7.19 pH Units (7.32-7.45) L* 05/27/17 03:53 ABG pCO2 35 mmHg (35-45) 05/27/17 03:53 ABG pO2 121 mmHg (85-104) H D 05/27/17 03:53 ABG HCO3 13 mEq/L (21-27) L 05/27/17 03:53 ABG O2 Saturation 98 % (95-98) 05/27/17 03:53 Calcium 7.8 mg/dL (8.6-10.3) L 05/27/17 05:30 Magnesium 2.0 mg/dL (1.6-2.6) 05/27/17 05:30 I reviewed the med lists, vitals, imaging, labs, progress notes but awaiting further records from [place]. Consult Discharge Plan - Plan Referrals: Jace Will DO [Primary Care Provider] -
[2017-05-27 09:42] LABS: Anisocytosis 1+ (Not Present); Polychromasia 1+ (Not Present); Toxic Granulation Present (Not Present)
[2017-05-27] MEDS ORDERED: Lacri-Lube 3.5 GM TUBE BOTH EYES PRN (10:09)
[2017-05-27] MEDS ORDERED: Perflutren Lipid Microsphere 1.3 ML in 0.9 % Sodium Chloride 8.7 ML IVP ONE (10:45)
[2017-05-27] MEDS: Sodium Bicarbonate 150 MEQ in D5% in Water 1,000 ML IVC SCH (10:57)
[2017-05-27 10:58] LABS: VBG Ionized Calcium 0.95 mmol/L (1.15-1.35)
[2017-05-27] MEDS: Pantoprazole 40 MG VIAL IVP SCH (11:34)
[2017-05-27] MEDS: Lacri-Lube 3.5 GM TUBE BOTH EYES SCH ×3 (11:36→20:00)
--- NOTE | 2017-05-27 13:45 | Vascular/Endovasc Consult Note ---
Date of Encounter: 05/27/17 Time of Encounter: 08:45 Assessment and Plan (1) Ischemia of left upper extremity Current Visit: Yes Status: Acute non salvagable left upper extremity discussed with and step son no amputation surgery desired aware that patient will not survive (2) Metabolic acidosis Current Visit: Yes Status: Acute multifactorial causes (3) Multi-organ system dysfunction Current Visit: Yes Status: Acute multifactorial causes - History of Present Illness Consult date: 05/27/17 Consult reason: Hypotension and left upper extremity ischemia Chief complaint: Patient is intubated History of present illness: Mr. Nicole is a 76 year old male Was admitted via the emergency room last night from dialysis. The patient was found to be hypotensive and hypoglycemic as well as having mental status changes. He was sent from the dialysis center to the emergency room and was then admitted to the intensive care unit. The patient was intubated and initially placed on epinephrine. This was converted to levophed. The patient has a history of renal failure. On April 13, 2017 he had undergone creation of a left antecubital AV fistula. Subsequent to that the patient had a number of problems associated with the left upper extremity. This included cellulitis requiring admission in later April. He then presented to the emergency room in early May with marked changes of pain and discoloration and necrosis of the forearm area and he was transferred to [facility]. He was discharged from [facility] just this past weekend and return to the extended care facility here in [place]. At [place] he had undergone debridement of the left forearm and ligation of the left antecubital AV fistula. The patient has had marked mental status changes according to the patient's over a number of days. She states his overall condition has significantly deteriorated and he has had very little verbal interaction or involvement with the staff for other family members. Past Med Surg Social Fam HX - Past Medical History Medical history: atrial fibrillation, COPD, coronary artery disease, diabetes, GERD, hyperlipidemia, hypertension, myocardial infarction, other Psychiatric history: no psych history, anxiety - Past Surgical History Surgical History: bariatric surgery, cholecystectomy, pacemaker/AICD, other - Social History Smoking Status: Never smoker Smokeless Tobacco Status: No Alcohol use: none Drug use: none - Family History Mother Family Member Ethnicity: Non- Living Status: Hx Family Cardiac Disorders: Yes (MA, HTN) Hx Family Endocrine Disorder: Yes (DM) Brother Family Member Ethnicity: Non- Living Status: Sister Family Member Ethnicity: Non- Living Status: Still Living Hx Family Endocrine Disorder: Yes (DM) Father Family Member Ethnicity: Non- Living Status: Hx Family Cardiac Disorders: Yes (Stroke) Hx Family Respiratory Disorders: No Hx Family Cancer: No Hx Family GI Disorders: No Hx Family Endocrine Disorder: No Hx Family Neuromuscular Disorders: No Hx Family Neurologic Disorders: No Hx Family HEENT Disorders: No Hx Family Autoimmune Disorders: No Medications and Allergies Atorvastatin [Lipitor] 40 mg PO HS 09/07/15 [History] Calcitriol [Rocaltrol] 0.25 mcg PO BID 09/07/15 [History] Cyanocobalamin (Vitamin B-12) [Vitamin B-12] 500 mcg PO DAILY 09/07/15 [History] Warfarin [Coumadin] 2.5 mg PO SUTUWETHFRSA 09/07/15 [History] Calcium Acetate 667 mg PO TID 04/13/17 [History] Cilostazol [Pletal] 100 mg PO BID 04/13/17 [History] Gabapentin [Neurontin] 300 mg PO HS #30 capsule 04/28/17 [Rx] clonazePAM [Klonopin] 0.5 mg PO HS #5 tablet 04/28/17 [Rx] Polyethylene Glycol 3350 [MiraLAX] 17 gm PO HS 05/11/17 [History] Acetaminophen [Tylenol] 650 mg PO Q6H PRN 05/26/17 [History] Aspirin Enteric Coated [Aspirin EC] 81 mg PO DAILY 05/26/17 [History] Bisacodyl [Dulcolax] 10 mg RC DAILY PRN 05/26/17 [History] Calcium Carbonate/Vitamin D3 [Calcium 500-Vit D3 200 Tablet] 1 each PO DAILY [History] Insulin Glargine [Lantus] 8 unit SQ HS 05/26/17 [History] Insulin LISPRO [HumaLOG] 2 - 10 unit SQ TID 05/26/17 [History] Metoprolol [Lopressor] 25 mg PO BID 05/26/17 [History] Omeprazole [PriLOSEC] 40 mg PO DAILY 05/26/17 [History] Oxycodone HCl 5 mg PO Q6H PRN 05/26/17 [History] Sevelamer [Renvela] 800 mg PO TIDWM 05/26/17 [History] 3 Allergy/AdvReac Type Severity Reaction Status Date / Time Sulfa (Sulfonamide Allergy Rash Verified 04/30/17 09:49 Antibiotics) All Systems Review: A 10-system review of systems was performed and is negative for pertinent findings except as documented above in the HPI. Exam Vital Signs, Last 4 Hours Pulse Resp BP Pulse Ox 05/27/17 13:00 77 27 90/52 100 05/27/17 12:26 77 05/27/17 12:00 27 124/74 100 05/27/17 11:43 27 100 05/27/17 11:00 76 26 76/42 94 05/27/17 10:00 75 26 105/48 94 General: Present: Other (Critically ill elderly white male in bed #1 in the intensive care unit. He is intubated and mechanically ventilated. He is not responsive.) HEENT: Present: Normocephaly, Trachea midline Neck: Absent: JVD, Lymphadenopathy, Midline deformity, Tracheal deviation Cardiac: Present: Reg Rate and Rhythm Lungs: Present: Decreased breath sounds Neuro: Present: Other (Neurologic status is unable to be assessed due to his obtunded state. He has no spontaneous movement.) Abdomen: Present: Soft, Non-tender Vascular: Present: Pulse, absent (No palpable left wrist pulses. He has no palpable right wrist pulses.), Pulse, normal (The patient has palpable left axillary and brachial artery pulses. There are no palpable pulses distally.), Color/Temperature (The left upper extremity shows marked cyanotic changes. He has a number of blisters extending into the midportion of the upper arm. The hand and forearm were are cool to the touch. He is status post previous surgical interventions. He has a dressing on the left forearm. He has surgical site on the left antecubital area which most likely represents the site where the AV fistula was ligated. These wounds are all ischemic or have necrotic edges. He has decreased passive range of motion of the left wrist.) Consult Discharge Plan - Plan Referrals: Jace Will DO [Primary Care Provider] -
--- NOTE | 2017-05-27 13:58 | Cardiology Consult Note ---
<Yin Solis - Last Filed: 05/27/17 14:38> Date of Encounter: 05/27/17 Time of Encounter: 10:00 Assessment and Plan (1) Elevated troponin Status: Acute Cardiology consulted for elevated troponin. -Patient unstable clinically. Mottling noted on physical exam. Patient on heparin per vascular surgery. Will continue to optimize medical therapy. -Patient's family declining aggressive interventions. Not a candidate for invasive strategies. -Palliative on board. -Patien'ts pacemaker interrogated. The device is capturing appropriately (2) Hypotension Status: Acute Patient in septic shock with MODS -on pressor support -continue managment per primary team Qualifiers: Hypotension type: unspecified hypotension type Qualified Code(s): I95.9 - Hypotension, unspecified (3) MODS (multiple organ dysfunction syndrome) Status: Acute Patient with evidence of hypoperfusion in multiple organ systems. -Continue with already initiated interventions. -Family states they are likely to withdrawal care tomorrow. (4) Pericardial effusion Status: Acute Evidence of pericardial effusion on imaging. -Not hemodynamically significant. (5) Septic shock Status: Suspected Discussion w patient/family: The assessment and plan as outlined above was discussed with the patient and/or family members who expressed understanding and agreement. All questions were answered. Thank you for involving us in the care of your patient. Please call with any questions. History of Present Illness Consult date: 05/27/17 Requesting physician: Jessee Ceballos Consult reason: elevated troponin, pacer not capturing, pericardial effusion Chief complaint: Unresponsive History of present illness: Mr. Nicole is a 76 year old male with PMHx of ESRD on dialysis, history of pacemaker, chronic atrial fibrillation, COPD, CAD with stents, GERD, DM, HLD, and HTN who presented to the [facility] ED on 05/26/2016 after being found unresponsive during dialysis. On arrival to the emergency department, patient's oxygen saturation was 74, blood pressure 50/38, glucose 30. Resuscitation was initiated with central line placement and initiation of epinephrine. Patient was intubated secondary to hypercapnic hypoxia and respiratory distress. Initial workup including chest x-ray and CT of the chest demonstrated a small pericardial effusion as well as bilateral pleural effusions. Patient has had lactic acid of greater than 102. Patient demonstrating multi-organ dysfunction syndrome with transaminitis and likely shock liver, as well as kidney injury. Creatinine kinase 1245 trending upwards to 1352. ABG reveals anionic gap metabolic acidosis. Patient currently on ARDS ventilator settings. Troponins were initially elevated at 2.25 and have trended upwards to 4.17 today. Of note patient was found to have a necrotic left upper limb. Patient was recently hospitalized here at [facility] on 05/10/2017 for LUE cellultis. Patient is s/p LUE AV fistula on 04/13/2017 for ESRD. During this hospitalization, there was suspicion for gangrene and patient was transferred to [place] for further treatment. Additionally, patient was found to have ischemic steal syndrome secondary to AV fistula complication. Patient underwent AV fistula ligation and subsequent left forearm I&D with [employer] and wound VAC placement on 05/23/2017. Patient has been living in [facility] in [place] since that time with plans for future staged skin grafting in 3 weeks. Upon assessment this morning, patient appears to be in very critical condition. Upon discussion with primary team, patient's family not pursuing aggressive interventions at this time. Talks of withdrawing care tomorrow have been initiated. Past Med Surg Social Fam HX - Past Medical History Source: old records reviewed, nursing notes reviewed Medical history: atrial fibrillation, COPD, coronary artery disease, diabetes, GERD, hyperlipidemia, hypertension, myocardial infarction, other Psychiatric history: no psych history, anxiety - Past Surgical History Surgical History: bariatric surgery, cholecystectomy, pacemaker/AICD, other - Social History Smoking Status: Never smoker Smokeless Tobacco Status: No Alcohol use: none Drug use: none - Family History Mother Family Member Ethnicity: Non- Living Status: Hx Family Cardiac Disorders: Yes (DE, HTN) Hx Family Endocrine Disorder: Yes (DM) Brother Family Member Ethnicity: Non- Living Status: Sister Family Member Ethnicity: Non- Living Status: Still Living Hx Family Endocrine Disorder: Yes (DM) Father Family Member Ethnicity: Non- Living Status: Hx Family Cardiac Disorders: Yes (Stroke) Hx Family Respiratory Disorders: No Hx Family Cancer: No Hx Family GI Disorders: No Hx Family Endocrine Disorder: No Hx Family Neuromuscular Disorders: No Hx Family Neurologic Disorders: No Hx Family HEENT Disorders: No Hx Family Autoimmune Disorders: No Medications and Allergies Atorvastatin [Lipitor] 40 mg PO HS 09/07/15 [History] Calcitriol [Rocaltrol] 0.25 mcg PO BID 09/07/15 [History] Cyanocobalamin (Vitamin B-12) [Vitamin B-12] 500 mcg PO DAILY 09/07/15 [History] Warfarin [Coumadin] 2.5 mg PO SUTUWETHFRSA 09/07/15 [History] Calcium Acetate 667 mg PO TID 04/13/17 [History] Cilostazol [Pletal] 100 mg PO BID 04/13/17 [History] Gabapentin [Neurontin] 300 mg PO HS #30 capsule 04/28/17 [Rx] clonazePAM [Klonopin] 0.5 mg PO HS #5 tablet 04/28/17 [Rx] Polyethylene Glycol 3350 [MiraLAX] 17 gm PO HS 05/11/17 [History] Acetaminophen [Tylenol] 650 mg PO Q6H PRN 05/26/17 [History] Aspirin Enteric Coated [Aspirin EC] 81 mg PO DAILY 05/26/17 [History] Bisacodyl [Dulcolax] 10 mg RC DAILY PRN 05/26/17 [History] Calcium Carbonate/Vitamin D3 [Calcium 500-Vit D3 200 Tablet] 1 each PO DAILY [History] Insulin Glargine [Lantus] 8 unit SQ HS 05/26/17 [History] Insulin LISPRO [HumaLOG] 2 - 10 unit SQ TID 05/26/17 [History] Metoprolol [Lopressor] 25 mg PO BID 05/26/17 [History] Omeprazole [PriLOSEC] 40 mg PO DAILY 05/26/17 [History] Oxycodone HCl 5 mg PO Q6H PRN 05/26/17 [History] Sevelamer [Renvela] 800 mg PO TIDWM 05/26/17 [History] 3 Allergy/AdvReac Type Severity Reaction Status Date / Time Sulfa (Sulfonamide Allergy Rash Verified 04/30/17 09:49 Antibiotics) ROS unobtainable: due to endotracheal tube, due to mental status All Systems Review: A 10-system review of systems was performed and is negative for pertinent findings except as documented above in the HPI. Physical Examination Vital Signs, Last 4 Hours Pulse Resp BP Pulse Ox 05/27/17 13:00 77 27 90/52 100 01/25/18 12:26 77 05/27/17 12:00 27 124/74 100 05/27/17 11:43 27 100 05/27/17 11:00 76 26 76/42 94 05/27/17 10:00 75 26 105/48 94 General: Other (Sedated and Intubated) HEENT: Other (Pupils equal, non-reactive to light) Cardiac: Other (Distant heart sounds) Lungs: Other Neuro: Other (Unresponsive) Abdomen: Soft Skin: Other (Patients RUE dusky with large eschar and areas of blackened necrosis. Pulses palpated on RUE, and bilateral LE/s.) Extremities: Other (Patient with dusky, ashen appearance to LUE. Mottling noted from chest down.) Results 05/27/17 05:30 05/27/17 05:30 Lab Results 05/27/17 05/27/17 05/27/17 05:30 05:30 05:30 WBC 18.2 H Hgb 8.5 L Hct 30.2 L Plt Count 496 H INR APTT Sodium 130 L Potassium 5.0 Chloride 92 L Carbon Dioxide 16 L BUN 28 H Creatinine 4.18 H Glucose 397 H Calcium 7.8 L Magnesium 2.0 Troponin I 4.17 H* 05/27/17 05/27/17 05/27/17 05:30 10:42 10:42 WBC Hgb Hct Plt Count INR 3.1 APTT 45.6 H 45.6 H Sodium Potassium Chloride Carbon Dioxide BUN Creatinine Glucose Calcium Magnesium 2.0 Troponin I Consult Discharge Plan - Plan Referrals: Jace Will DO [Primary Care Provider] - <Juan Carlos Turpin - Last Filed: 05/29/17 20:29> Date of Encounter: 05/27/17 Time of Encounter: 18:30 - Attending Attestation I examined this patient and my medical decision-making was reviewed with the Resident Physician. I agree with the documented findings, disposition and treatment plan as described except to the extent set forth below. CC: Cardiac arrest Pt found unresponsive at dialysis, hypotensive with bp 50/38, underwent fluid resusitation, intubation, now on presser support. He has known ESRD, was at dialysis when became unresponsive. Unable to obtain history. Pt found to have ischemic left upper extremity. PE: reviewed, as above. IMP: 1. Acute respiratory failure, now ventilator dependent, 2. CAD: severe CAD, however does not appear acute coronary event. 3. Elevated troponins: due to hypotension, poor perfusion, poor renal clearance. 4. AICD for sick sinus syndrome with chronic a fib, severe LV systolic impairment, question function, pacemaker is functioning normally, has not required defib, heart rate above base paced rate. Prognosis is dismal, patients family has decided not to persue further aggressive intervention, pallative care consulted. Available if can help, can talk to family about cardiac issues if would help. Assessment and Plan Discussion w patient/family: The assessment and plan as outlined above was discussed with the patient and/or family members who expressed understanding and agreement. All questions were answered. Thank you for involving us in the care of your patient. Please call with any questions. History of Present Illness History of present illness: Mr. Nicole is a 76 year old male All Systems Review: A 10-system review of systems was performed and is negative for pertinent findings except as documented above in the HPI. Results 05/28/17 03:16 05/28/17 03:16
[2017-05-27 16:34] LABS: VBG Ionized Calcium 0.98 mmol/L (1.15-1.35); VBG PH 7.25 pH Units (7.32-7.42)
[2017-05-27] MEDS: Piperacillin/Tazobactam 3.375 GM/200 ML BAG IVPB SCH (17:31)
[2017-05-27 17:56] LABS: VBG Ionized Calcium 0.95 mmol/L (1.15-1.35); VBG PH 7.28 pH Units (7.32-7.42)
[2017-05-27 19:52] LABS: Eosinophils % 0.2 %; Mean Platelet Volume 10.2 fL (9.4-12.4)
[2017-05-27 19:54] LABS: Basophils # 0.1 K/mcL (0.0-0.2); Basophils % 0.3 %; Hematocrit 30.8 % (37.5-50.1); Hemoglobin 9.1 g/dL (12.9-16.9); Lymphocytes # 1.2 K/mcL (0.6-4.6); Lymphocytes % 7.4 %; Mean Corpuscular HGB Conc 29.5 g/dL (31.6-35.5); Mean Corpuscular Hemoglobin 29.3 pg (28.0-33.3); Monocytes # 0.9 K/mcL (0.0-1.3); Monocytes % 5.5 %; Nucleated Red Blood Cells 0.5 /100 WBC (0); Platelet Count 475 K/mcL (140-400); Red Blood Count 3.11 M/mcL (4.19-5.50); Red Cell Distribution Width 16.5 % (11.5-14.5); Segmented Neutrophils % 84.6 %
[2017-05-27] MEDS: Chlorhexidine Rinse 15 ML MOUTHWASH MM SCH (20:00)
[2017-05-27 20:47] LABS: Anisocytosis 1+ (Not Present); Hypochromasia Present (Not Present)
[2017-05-27 20:57] LABS: Alanine Aminotransferase 329 Units/L (7-52); Albumin 2.3 g/dL (3.5-5.7); Albumin/Globulin Ratio 0.6 (1.1-2.2); Alkaline Phosphatase 334 Units/L (34-104); Aspartate Amino Transferase > 3000 Units/L (13-39); BUN/Creatinine Ratio 7 (6-26); Bilirubin,Total 0.8 mg/dL (0.3-1.0); Blood Urea Nitrogen 34 mg/dL (8-23); Calcium 7.5 mg/dL (8.6-10.3); Carbon Dioxide 22 mEq/L (23-29); Chloride 93 mEq/L (98-107); Globulin 3.7 g/dL (2.4-3.5); Glucose 218 mg/dL (70-105); Magnesium 1.9 mg/dL (1.6-2.6); Osmolality,Calculated 284 (280-300); Potassium 3.8 mEq/L (3.5-5.1); Sodium 130 mEq/L (136-145); eGFR For African Americans 15 (> 60); eGFR For Non-African Americans 13 (> 60)
[2017-05-28] MEDS: Lacri-Lube 3.5 GM TUBE BOTH EYES SCH ×4 (00:21→13:06)
[2017-05-28] MEDS: Insulin LISPRO 300 UNITS/3 ML VIAL SQ SCH ×2 (00:21→05:05)
[2017-05-28 03:42] LABS: VBG Ionized Calcium 0.91 mmol/L (1.15-1.35); VBG PH 7.31 pH Units (7.32-7.42)
[2017-05-28 03:45] LABS: Basophils # 0.1 K/mcL (0.0-0.2); Basophils % 0.3 %; Eosinophils # 0.1 K/mcL (0.0-0.6); Eosinophils % 0.5 %; Hematocrit 29.3 % (37.5-50.1); Hemoglobin 8.6 g/dL (12.9-16.9); Immature Granulocytes % 2.2 % (0-4); Lymphocytes % 6.4 %; Mean Corpuscular HGB Conc 29.4 g/dL (31.6-35.5); Mean Corpuscular Hemoglobin 28.8 pg (28.0-33.3); Mean Platelet Volume 10.3 fL (9.4-12.4); Monocytes # 0.8 K/mcL (0.0-1.3); Monocytes % 5.3 %; Neutrophils # 13.5 K/mcL (1.6-8.9); Nucleated Red Blood Cells 0.8 /100 WBC (0); Platelet Count 458 K/mcL (140-400); Red Blood Count 2.99 M/mcL (4.19-5.50); Red Cell Distribution Width 16.2 % (11.5-14.5); Segmented Neutrophils % 85.3 %
[2017-05-28 04:12] LABS: Calcium 7.3 mg/dL (8.6-10.3); Potassium 3.9 mEq/L (3.5-5.1)
[2017-05-28 04:13] LABS: Hepatitis B Surface Antibody 5.09 mIU/mL; Hepatitis B Surface Antigen Nonreactive (Nonreactive)
[2017-05-28] MEDS: Piperacillin/Tazobactam 3.375 GM/200 ML BAG IVPB SCH (05:03)
[2017-05-28] MEDS: Sodium Bicarbonate 150 MEQ in D5% in Water 1,000 ML IVC SCH (05:03)
[2017-05-28] MEDS ORDERED: Aminoglycoside Consult 1 EACH MC ONE (05:19)
--- NOTE | 2017-05-28 07:21 | Pulmonology Progress Note ---
<Rogers Anne - Last Filed: 05/28/17 11:56> Date of Encounter: 05/28/17 Time of Encounter: 07:20 Assessment and Plan (1) Acute respiratory failure with hypoxia Current Visit: Yes Status: Acute Patient was satting at 74% on arrival to the ED requiring initial BiPAP and subsequent endotracheal intubation Chest x-ray and chest CT: Demonstrate bilateral pleural effusions without any consolidative process Ventilator settings VC+, Rate 24, TV 420, FiO2 90 and PEEP 8 Most recent ABG shows pH 7.19, PCO2 35, PO2 121 and HCO3 13 with following VBG pH 7.31 this morning Likely secondary to suspected septic shock After significant discussion with and daughters we will change his CODE STATUS to DNR CC Will initiate comfort care measures and discontinue all other interventions Palliative care team is following and will transition to inpatient hospice after the first 24 hours in ICU (2) Septic shock Current Visit: Yes Status: Suspected Likely septic shock due to ischemic limb resulting extreme vasodilatory response Patient was found to be 50/38 the pulse of 78 on arrival yesterday Left IJ CVC was placed in the emergency room with Levophed started Lactic acid has been greater than 10 but trending down to 5.5 CTA of the abdomen and pelvis was unremarkable IV antibiotics with vancomycin and Zosyn Bicarbonate infusion at 60 mL per hour Pressure support; Levophed at 6 Discontinuing all above intervention and will proceed with care measures per family's wishes (3) Lactic acidosis Current Visit: Yes Status: Acute LA greater than 102 followed by decreased to 5.5 yesterday afternoon CTA abdomen and pelvis injury no acute findings Likely due to ischemic left upper extremity with MODS - acute renal failure with acute liver failure 2/2 to septic shock No further aggressive intervention (4) MODS (multiple organ dysfunction syndrome) Current Visit: Yes Status: Acute See above (5) Ischemic steal syndrome Current Visit: Yes Status: Acute Patient was discharged from the [facility] on 05/11/17 after he was found to have suspected left upper extremity cellulitis versus gangrene and was ultimately transferred to [place] for further recommendations with vascular and plastic surgery. Of note, during his admission he was found to have ischemic steal syndrome secondary to AV fistula complication with less likely etiology due to infectious cause. Patient underwent AV fistula ligation as well as I&D/Integra placement and wound VAC on 05/23/17. At that time, plastic surgery was planning staged split-thickness skin graft in 3 weeks. Patient tolerated the procedure well and was discharged to [facility] in [place] on 05/25/17. Left upper extremity has no palpable pulses with significant cyanotic changes and necrosis Vascular surgery was consulted and have discussed case with family members; no further surgery was desired and they are aware of his prognosis. Transition to comfort care measures today per family's wishes (6) Elevated troponin Current Visit: Yes Status: Acute Troponin trending up from 2.25-4.17 and cardiology was consulted Family is declining any further aggressive interventions is not a candidate for invasive strategies Pacemaker was interrogated yesterday and is capturing appropriately. (7) Pleural effusion Current Visit: Yes Status: Acute Bilateral pleural effusions were seen on the chest x-ray and CTA of the chest (8) Complication of AV dialysis fistula Current Visit: No Status: Acute See above Qualifiers: Encounter type: sequela Qualified Code(s): T82.9XXS - Unspecified complication of cardiac and vascular prosthetic device, implant and graft, sequela (9) ESRD (end stage renal disease) on dialysis Current Visit: No Status: Chronic Follows Dr. Goncalves as an outpatient Hemodialysis was recently stopped early due to hypotension Creatinine trending up from 3.7-4.18 -> 4.79 Nephrology was consulted for possible Shelbi therapy but will hold off at this time due to unlikely benefit for patient in his current condition and family's wishes for no further aggressive intervention. (10) Atrial fibrillation Current Visit: No Status: Chronic Previously on warfarin therapy is now on a heparin drip Discontinue today and proceed with comfort care measures Qualifiers: Atrial fibrillation type: paroxysmal Qualified Code(s): I48.0 - Paroxysmal atrial fibrillation (11) CAD (coronary artery disease) Current Visit: No Status: Chronic Qualifiers: Coronary Disease-Associated Artery/Lesion type: unspecified vessel or lesion type [place] vs. transplanted heart: [place] heart Associated angina: without angina Qualified Code(s): I25.10 - Atherosclerotic heart disease of [place] coronary artery without angina pectoris (12) Diabetes Current Visit: No Status: Chronic See above Qualifiers: Diabetes mellitus type: type 2 Diabetes mellitus complication status: without complication Diabetes mellitus [facility] insulin use: with terminal operator use Qualified Code(s): E11.9 - Type 2 diabetes mellitus without complications ; Z79.4 - terminal operator (current) use of insulin; Z79.4 - terminal operator (current) use of insulin; Z79.4 - intermediate (current) use of insulin; Z79.4 - intermediate ( current) use of insulin (13) DVT prophylaxis Current Visit: No Status: Acute See above Subjective Interval history: Patient is admitted for acute respiratory failure with hypoxia septic shock, lactic acidosis and ischemia of the left upper extremity Patient is resting comfortably on the ventilator this morning in no acute distress; comfortable. Plan for discussion with palliative team and entire family for transition to comfort care measures No overnight events Objective PUL Vital signs: Last Vital Signs Temp 96.9 F L 05/28/17 03:07 Pulse 70 05/28/17 05:46 Resp 24 05/28/17 05:46 BP 113/53 05/28/17 05:46 Pulse Ox 97 05/28/17 05:46 General appearance: no acute distress (Ventilator support) Eyes: nonicteric, other (Not reactive to light but does open his eyes to stimulation) ENT: other (ET tube in place) Neck: no JVD Effort: other (Ventilator support) Auscultation: bilateral: rales Cardiovascular: regular rate and rhythm Gastrointestinal: normoactive bowel sounds Extremities: other (No palpable left wrist pulses with marked cyanotic changes. Left forearm status post I&D with Integra. Wounds had necrotic edges with an open wound at his left dorsal antebrachium.) unable to assess due to mental status Ventilator Settings Ventilator Settings: Ventilator Settings, Last 8 Hours Ventilator Mode A/C Ventilator Mode VC+ Ventilator Mode A/C Ventilator Mode A/C Ventilator Mode A/C Ventilator Mode A/C Ventilator Mode A/C Ventilator Mode VC+ Ventilator Mode A/C Ventilator Mode VC+ Ventilator Mode A/C Ventilator Tidal Volume 420 Setting Ventilator Tidal Volume 420 Setting Ventilator Tidal Volume 420 Setting Ventilator Tidal Volume 420 Setting Ventilator Tidal Volume 420 Setting Ventilator Tidal Volume 420 Setting Ventilator Tidal Volume 420 Setting Ventilator Tidal Volume 420 Setting Ventilator Tidal Volume 420 Setting Ventilator Tidal Volume 420 Setting Ventilator Tidal Volume 420 Setting Ventilator Respiratory Rate 24 Setting Ventilator Respiratory Rate 24 Setting Ventilator Respiratory Rate 24 Setting Ventilator Respiratory Rate 24 Setting Ventilator Respiratory Rate 24 Setting Ventilator Respiratory Rate 24 Setting Ventilator Respiratory Rate 24 Setting Ventilator Respiratory Rate 24 Setting Ventilator Respiratory Rate 24 Setting Ventilator Respiratory Rate 24 Setting Ventilator Respiratory Rate 24 Setting Actual Respiratory Rate 24 Actual Respiratory Rate 24 Actual Respiratory Rate 24 Actual Respiratory Rate 24 Actual Respiratory Rate 24 Actual Respiratory Rate 24 Actual Respiratory Rate 24 Actual Respiratory Rate 24 Actual Respiratory Rate 24 Actual Respiratory Rate 24 Actual Respiratory Rate 24 Positive End Expiratory 5 Pressure Positive End Expiratory 5 Pressure Positive End Expiratory 5 Pressure Positive End Expiratory 5 Pressure Positive End Expiratory 5 Pressure Positive End Expiratory 5 Pressure Positive End Expiratory 5 Pressure Positive End Expiratory 5 Pressure Positive End Expiratory 5 Pressure Positive End Expiratory 5 Pressure Positive End Expiratory 5 Pressure Peak Inspiratory Airway 16 Pressure Peak Inspiratory Airway 16 Pressure Peak Inspiratory Airway 17 Pressure Peak Inspiratory Airway 16 Pressure Peak Inspiratory Airway 18 Pressure Peak Inspiratory Airway 17 Pressure Peak Inspiratory Airway 17 Pressure Peak Inspiratory Airway 17 Pressure Peak Inspiratory Airway 17 Pressure Peak Inspiratory Airway 18 Pressure Peak Inspiratory Airway 19 Pressure Results - Laboratory Findings CBC and BMP: 05/28/17 03:16 05/28/17 03:16 ABG ABG pH 7.19 pH Units (7.32-7.45) L* 05/27/17 03:53 ABG pCO2 35 mmHg (35-45) 05/27/17 03:53 ABG pO2 121 mmHg (85-104) H D 05/27/17 03:53 ABG O2 Saturation 98 % (95-98) 05/27/17 03:53 PT/INR, D-dimer PT 34.7 Seconds (9.4-12.1) H 05/27/17 05:30 Abnormal lab findings: Abnormal lab results WBC 15.9 K/mcL (4.3-11.1) H 05/28/17 03:16 RBC 2.99 M/mcL (4.19-5.50) L 05/28/17 03:16 Hgb 8.6 g/dL (12.9-16.9) L 05/28/17 03:16 Hct 29.3 % (37.5-50.1) L 05/28/17 03:16 MCHC 29.4 g/dL (31.6-35.5) L 05/28/17 03:16 RDW 16.2 % (11.5-14.5) H 05/28/17 03:16 Plt Count 458 K/mcL (140-400) H 05/28/17 03:16 Myelocytes % 4.0 % (0) H 05/26/17 20:10 Neutrophils # 13.5 K/mcL (1.6-8.9) H 05/28/17 03:16 Nucleated RBCs/100 WBC 0.8 /100 WBC (0) H 05/28/17 03:16 Toxic Granulation Present (Not Present) A 05/27/17 05:30 Platelet Estimate Slight increase (Normal) H 05/27/17 19:28 Polychromasia 1+ (Not Present) A 05/27/17 05:30 Hypochromasia Present (Not Present) A 05/27/17 19:28 Anisocytosis 1+ (Not Present) A 05/27/17 19:28 PT 34.7 Seconds (9.4-12.1) H 05/27/17 05:30 APTT 69.4 Seconds (26.0-36.0) H 05/28/17 06:10 ABG pH 7.19 pH Units (7.32-7.45) L* 05/27/17 03:53 ABG pO2 121 mmHg (85-104) H D 05/27/17 03:53 ABG HCO3 13 mEq/L (21-27) L 05/27/17 03:53 ABG Total CO2 14 mEq/L (20-26) L 05/27/17 03:53 ABG Base Excess -14 mEq/L (-2 to 3) L 05/27/17 03:53 VBG pH 7.31 pH Units (7.32-7.42) L 05/28/17 03:38 Sodium 131 mEq/L (136-145) L 05/28/17 03:16 Chloride 93 mEq/L (98-107) L 05/28/17 03:16 BUN 36 mg/dL (8-23) H 05/28/17 03:16 Creatinine 4.79 mg/dL (0.70-1.30) H 05/28/17 03:16 Est GFR ( Amer) 14 (> 60) L 05/28/17 03:16 Est GFR (Non-Af Amer) 12 (> 60) L 05/28/17 03:16 Glucose 169 mg/dL (70-105) H 05/28/17 03:16 POC Glucose 184 (58-89) H 05/27/17 23:26 Lactic Acid 5.2 mmol/L (0.5-2.2) H* 05/27/17 19:28 Calcium 7.3 mg/dL (8.6-10.3) L 05/28/17 03:16 Venous Ioniz Calcium 0.91 mmol/L (1.15-1.35) L 05/28/17 03:38 Direct Bilirubin 0.6 mg/dL (0.0-0.2) H 05/26/17 20:10 AST > 3000 Units/L (13-39) H 05/27/17 19:28 ALT 329 Units/L (7-52) H 05/27/17 19:28 Alkaline Phosphatase 334 Units/L (34-104) H 05/27/17 19:28 Ammonia 65 mcmol/L (16-53) H 05/26/17 20:10 Creatine Kinase 1352 Units/L (30-223) H 05/27/17 10:42 Troponin I 4.17 ng/mL (< 0.04) H* 05/27/17 05:30 Serum Total Protein 6.0 g/dL (6.4-8.9) L 05/27/17 19:28 Albumin 2.3 g/dL (3.5-5.7) L 05/27/17 19:28 Globulin 3.7 g/dL (2.4-3.5) H 05/27/17 19:28 Albumin/Globulin Ratio 0.6 (1.1-2.2) L 05/27/17 19:28 Urine Clarity Turbid (Clear) A 05/27/17 00:51 Urine Protein 100 mg/dL (Neg-Trace) H 05/27/17 00:51 Urine Ketones 15 mg/dL (Negative) H 05/27/17 00:51 Urine Blood Large (Negative) H 05/27/17 00:51 Urine Bilirubin Small (Negative) H 05/27/17 00:51 Ur Leukocyte Esterase Large (Negative) H 05/27/17 00:51 Urine Microscopic RBC TNTC per hpf (0-3) H 05/27/17 00:51 Amorphous Sediment Moderate (Few) H 05/27/17 00:51 Urine Yeast Moderate per hpf (None Seen) H 05/27/17 00:51 Ur Culture Indicated? YES (NO) A 05/27/17 00:51 - Clinical Findings Intake & Output: Intake & Output 05/27/17 05/27/17 05/28/17 15:59 23:59 07:59 Intake Total 2559 / 2559 1140 / 1140 1489 / 1489 Output Total 0 / 0 0 / 0 Balance 2559 / 2559 1140 / 1140 1489 / 1489 Weight 109.7 kg Consult Discharge Plan - Plan Referrals: Jace Will, DO [Primary Care Provider] - <Rush Easton W - Last Filed: 05/28/17 12:09> Date of Encounter: 05/28/17 Objective PUL Vital signs: Last Vital Signs Temp 98.9 F 05/28/17 07:00 Pulse 76 05/28/17 08:04 Resp 24 05/28/17 08:44 BP 91/52 05/28/17 08:00 Pulse Ox 94 05/28/17 08:44 Ventilator Settings Ventilator Settings: Ventilator Settings, Last 8 Hours Ventilator Mode A/C Ventilator Mode A/C Ventilator Mode A/C Ventilator Mode VC+ Ventilator Mode A/C Ventilator Mode A/C Ventilator Mode A/C Ventilator Mode A/C Ventilator Mode A/C Ventilator Mode VC+ Ventilator Tidal Volume 420 Setting Ventilator Tidal Volume 420 Setting Ventilator Tidal Volume 420 Setting Ventilator Tidal Volume 420 Setting Ventilator Tidal Volume 420 Setting Ventilator Tidal Volume 420 Setting Ventilator Tidal Volume 420 Setting Ventilator Tidal Volume 420 Setting Ventilator Tidal Volume 420 Setting Ventilator Tidal Volume 420 Setting Ventilator Respiratory Rate 24 Setting Ventilator Respiratory Rate 24 Setting Ventilator Respiratory Rate 24 Setting Ventilator Respiratory Rate 24 Setting Ventilator Respiratory Rate 24 Setting Ventilator Respiratory Rate 24 Setting Ventilator Respiratory Rate 24 Setting Ventilator Respiratory Rate 24 Setting Ventilator Respiratory Rate 24 Setting Ventilator Respiratory Rate 24 Setting Actual Respiratory Rate 24 Actual Respiratory Rate 24 Actual Respiratory Rate 24 Actual Respiratory Rate 24 Actual Respiratory Rate 24 Actual Respiratory Rate 24 Actual Respiratory Rate 24 Actual Respiratory Rate 24 Actual Respiratory Rate 24 Actual Respiratory Rate 24 Positive End Expiratory 5 Pressure Positive End Expiratory 5 Pressure Positive End Expiratory 5 Pressure Positive End Expiratory 5 Pressure Positive End Expiratory 5 Pressure Positive End Expiratory 5 Pressure Positive End Expiratory 5 Pressure Positive End Expiratory 5 Pressure Positive End Expiratory 5 Pressure Positive End Expiratory 5 Pressure Peak Inspiratory Airway 17 Pressure Peak Inspiratory Airway 16 Pressure Peak Inspiratory Airway 16 Pressure Peak Inspiratory Airway 16 Pressure Peak Inspiratory Airway 17 Pressure Peak Inspiratory Airway 16 Pressure Peak Inspiratory Airway 18 Pressure Peak Inspiratory Airway 17 Pressure Peak Inspiratory Airway 17 Pressure Peak Inspiratory Airway 17 Pressure Results - Laboratory Findings CBC and BMP: 05/28/17 03:16 05/28/17 03:16 ABG ABG pH 7.19 pH Units (7.32-7.45) L* 05/27/17 03:53 ABG pCO2 35 mmHg (35-45) 05/27/17 03:53 ABG pO2 121 mmHg (85-104) H D 05/27/17 03:53 ABG O2 Saturation 98 % (95-98) 05/27/17 03:53 PT/INR, D-dimer PT 34.7 Seconds (9.4-12.1) H 05/27/17 05:30 Abnormal lab findings: Abnormal lab results WBC 15.9 K/mcL (4.3-11.1) H 05/28/17 03:16 RBC 2.99 M/mcL (4.19-5.50) L 05/28/17 03:16 Hgb 8.6 g/dL (12.9-16.9) L 05/28/17 03:16 Hct 29.3 % (37.5-50.1) L 05/28/17 03:16 MCHC 29.4 g/dL (31.6-35.5) L 05/28/17 03:16 RDW 16.2 % (11.5-14.5) H 05/28/17 03:16 Plt Count 458 K/mcL (140-400) H 05/28/17 03:16 Myelocytes % 4.0 % (0) H 05/26/17 20:10 Neutrophils # 13.5 K/mcL (1.6-8.9) H 05/28/17 03:16 Nucleated RBCs/100 WBC 0.8 /100 WBC (0) H 05/28/17 03:16 Toxic Granulation Present (Not Present) A 05/27/17 05:30 Platelet Estimate Slight increase (Normal) H 05/27/17 19:28 Polychromasia 1+ (Not Present) A 05/27/17 05:30 Hypochromasia Present (Not Present) A 05/27/17 19:28 Anisocytosis 1+ (Not Present) A 05/27/17 19:28 PT 34.7 Seconds (9.4-12.1) H 05/27/17 05:30 APTT 69.4 Seconds (26.0-36.0) H 05/28/17 06:10 ABG pH 7.19 pH Units (7.32-7.45) L* 05/27/17 03:53 ABG pO2 121 mmHg (85-104) H D 05/27/17 03:53 ABG HCO3 13 mEq/L (21-27) L 05/27/17 03:53 ABG Total CO2 14 mEq/L (20-26) L 05/27/17 03:53 ABG Base Excess -14 mEq/L (-2 to 3) L 05/27/17 03:53 VBG pH 7.31 pH Units (7.32-7.42) L 05/28/17 03:38 Sodium 131 mEq/L (136-145) L 05/28/17 03:16 Chloride 93 mEq/L (98-107) L 05/28/17 03:16 BUN 36 mg/dL (8-23) H 05/28/17 03:16 Creatinine 4.79 mg/dL (0.70-1.30) H 05/28/17 03:16 Est GFR ( Amer) 14 (> 60) L 05/28/17 03:16 Est GFR (Non-Af Amer) 12 (> 60) L 05/28/17 03:16 Glucose 169 mg/dL (70-105) H 05/28/17 03:16 POC Glucose 184 (58-89) H 05/27/17 23:26 Lactic Acid 5.2 mmol/L (0.5-2.2) H* 05/27/17 19:28 Calcium 7.3 mg/dL (8.6-10.3) L 05/28/17 03:16 Venous Ioniz Calcium 0.91 mmol/L (1.15-1.35) L 05/28/17 03:38 Direct Bilirubin 0.6 mg/dL (0.0-0.2) H 05/26/17 20:10 AST > 3000 Units/L (13-39) H 05/27/17 19:28 ALT 329 Units/L (7-52) H 05/27/17 19:28 Alkaline Phosphatase 334 Units/L (34-104) H 05/27/17 19:28 Ammonia 65 mcmol/L (16-53) H 05/26/17 20:10 Creatine Kinase 1352 Units/L (30-223) H 05/27/17 10:42 Troponin I 4.17 ng/mL (< 0.04) H* 05/27/17 05:30 Serum Total Protein 6.0 g/dL (6.4-8.9) L 05/27/17 19:28 Albumin 2.3 g/dL (3.5-5.7) L 05/27/17 19:28 Globulin 3.7 g/dL (2.4-3.5) H 05/27/17 19:28 Albumin/Globulin Ratio 0.6 (1.1-2.2) L 05/27/17 19:28 Urine Clarity Turbid (Clear) A 05/27/17 00:51 Urine Protein 100 mg/dL (Neg-Trace) H 05/27/17 00:51 Urine Ketones 15 mg/dL (Negative) H 05/27/17 00:51 Urine Blood Large (Negative) H 05/27/17 00:51 Urine Bilirubin Small (Negative) H 05/27/17 00:51 Ur Leukocyte Esterase Large (Negative) H 05/27/17 00:51 Urine Microscopic RBC TNTC per hpf (0-3) H 05/27/17 00:51 Amorphous Sediment Moderate (Few) H 05/27/17 00:51 Urine Yeast Moderate per hpf (None Seen) H 05/27/17 00:51 Ur Culture Indicated? YES (NO) A 05/27/17 00:51 - Clinical Findings Intake & Output: Intake & Output 05/27/17 05/28/17 05/28/17 23:59 07:59 15:59 Intake Total 1140 / 1140 1489 / 1489 Output Total 0 / 0 0 / 0 Balance 1140 / 1140 1489 / 1489 Weight 109.7 kg - Attending Attestation I examined this patient and my medical decision-making was reviewed with the Resident Physician. I agree with the documented findings, disposition and treatment plan as described except to the extent set forth below. We independently had [id number] contact with the patient I spent 35mintues of critical care time with this patient Patient seen and examined at bedside Labs, radiology, chart personally reviewed. Management was reviewed during multidisciplinary critical care rounds. COMPLIANCE PROJECT MANAGER: Remains encephalopathic but able to open eyes today hold sedation continue analgesia Pulm: Acute hypoxic respiratory failure on vent settings are stable oxygenation is acceptable not a candidate for spontaneous breathing trial Cards: Vasodilatory shock with multiorgan system failure on vasopressor. Severe lactic acidosis FEN-GI: Nothing by mouth for now GI prophylaxis given; he has evidence of ischemic hepatitis Renal: His sardine with multiple electrolyte derangements nephrology following ID: Sepsis with shock likely secondary to necrotic limb not a surgical candidate Heme/Onc: Continuous and heparin infusion for ischemic limb hemoglobin stable Endo: Glucose Monitored Integ/MSK: Skin Care per routine ICU Nursing Protocol to prevent ulcers. Lines: All lines examined without evidence of infection : Dispo: Remain in ICU for ongoing critical care management CODE: DNRCC I met with the patient's and 2 adult children in the ICU family meeting room. This is in the presence of the ICU nurse the palliative care team and the resident physician. They have elected to transition to comfort measures which is appropriate in their father's case all questions answered and family members expressed understanding and agreement with plan of care The patient is unable or incompetent to participate in giving a history and/or making treatment decisions. The discussion was necessary for determining treatment decision. This discussion took place in the [ICU]. The total meeting time was [20minutes]
[2017-05-28] MEDS: Chlorhexidine Rinse 15 ML MOUTHWASH MM SCH (09:45)
[2017-05-28] MEDS: Pantoprazole 40 MG VIAL IVP SCH (09:45)
--- NOTE | 2017-05-28 13:02 | Palliative - Consult Note ---
Date of Encounter: 05/28/17 Time of Encounter: 12:30 - Assessment and Plan (1) Generalized pain Current Visit: Yes Status: Acute Assessment and plan: Continue Fentanyl drip and titrate for Hamm scale of 4 after extubation. Currently at 50mcg/hr. (2) Dyspnea Current Visit: Yes Status: Acute Assessment and plan: Utilize opioids/supportive oxygen. Monitor Qualifiers: Dyspnea type: unspecified Qualified Code(s): R06.00 - Dyspnea, unspecified (3) Counseling regarding advanced care planning and goals of care Current Visit: Yes Status: Acute Assessment and plan: Discussion of goals of care occurred at [address] Easton, Dr. Anne , electrophysiology scientistluis enrique Kamara, pt primary nurse Elizabeth and myself met with pt and 2 daughters, Charline and Karrie. Dr. Easton discussed updates in clinical status and poor prognosis. and daughter believe that patient would not desire prolonged life support and further aggressive measures if it were to mean a decreased quality of life. expressed that initially, pt did not want to consider dialysis, but did consent. They plan on contact a few grandchildren by phone in [place] to say goodbye to him, and then will plan on transition to DNR-CC and compassionate extubation later today when family ready. (4) ESRD (end stage renal disease) Current Visit: No Status: Chronic (5) MODS (multiple organ dysfunction syndrome) Current Visit: Yes Status: Acute (6) Ischemia of left upper extremity Current Visit: Yes Status: Acute Palliative-CN HPI - Data of Consult Requesting Physician: Aguila Tolentino MD Primary Care Provider: Jace Will DO Family Provider: Jace Will DO - Consult Narrative History of present illness: Mr. Nicole is a 76 year old male who presented to the ER from dialysis, where he had hypotension. Upon arrival to ER, he also had hypoglycemia and hypoxemia. He failed bipap and was intubated and sent to ICU. Finding on chest x-ray and CT of the chest demonstrates small pericardial effusion as well as bilateral pleural effusions. No acute consolidative process. Patient was also found to have an elevated lactic acid of greater than 10, leukocytosis 20, CK trending [id number] and troponin trending up from 2.25-4.17. Heparin drip was started on arrival. Began on IV antibiotics for sepsis. Admitting team consulted cardiology, nephrology, and vascular surgery for further recommendations. He is not a surgical candidate for any intervention, and would not likely survive surgery. He has a past history of coronary artery disease with stents) pacemaker, ESRD on dialysis, chronic atrial fibrillation on Coumadin therapy, type 2 diabetes on insulin therapy, GERD, peripheral vascular disease and previous CVA with left-sided weakness. He was here at [place] earlier this month for left arm cellulitis, and transferred to [place] as was suspicious for gangrene and would require vascular/plastic surgery. Diagnosed with Ischemic steal syndrome and had incision and debridement. According to , he was to follow up in a few weeks with plastics for possible skin grafting. Patient remains on ventilator this am - on Fentanyl drip for comfort. Will open eyes occasionally with assessment but does not follow any commands. Patient next of kin is , Nan - has 2 daughter, Charline and Karrie that arrived from [place] late yesterday. Palliative care was consulted to assist with goals of care discussion and possible compassionate extubation and symptom management. CC: Aguila Tolentino MD Past Med Surg Social Fam HX - Past Medical History Medical history: atrial fibrillation, COPD, coronary artery disease, diabetes, GERD, hyperlipidemia, hypertension, myocardial infarction, other Psychiatric history: no psych history, anxiety - Past Surgical History Surgical History: bariatric surgery, cholecystectomy, pacemaker/AICD, other - Social History Smoking Status: Never smoker Smokeless Tobacco Status: No Alcohol use: none Drug use: none - Family History Mother Family Member Ethnicity: Non- Living Status: Hx Family Cardiac Disorders: Yes ([place], HTN) Hx Family Endocrine Disorder: Yes (DM) Brother Family Member Ethnicity: Non- Living Status: Sister Family Member Ethnicity: Non- Living Status: Still Living Hx Family Endocrine Disorder: Yes (DM) Father Family Member Ethnicity: Non- Living Status: Hx Family Cardiac Disorders: Yes (Stroke) Hx Family Respiratory Disorders: No Hx Family Cancer: No Hx Family GI Disorders: No Hx Family Endocrine Disorder: No Hx Family Neuromuscular Disorders: No Hx Family Neurologic Disorders: No Hx Family HEENT Disorders: No Hx Family Autoimmune Disorders: No Medications and Allergies Atorvastatin [Lipitor] 40 mg PO HS 09/07/15 [History] Calcitriol [Rocaltrol] 0.25 mcg PO BID 09/07/15 [History] Cyanocobalamin (Vitamin B-12) [Vitamin B-12] 500 mcg PO DAILY 09/07/15 [History] Warfarin [Coumadin] 2.5 mg PO SUTUWETHFRSA 09/07/15 [History] Calcium Acetate 667 mg PO TID 04/13/17 [History] Cilostazol [Pletal] 100 mg PO BID 04/13/17 [History] Gabapentin [Neurontin] 300 mg PO HS #30 capsule 04/28/17 [Rx] clonazePAM [Klonopin] 0.5 mg PO HS #5 tablet 04/28/17 [Rx] Polyethylene Glycol 3350 [MiraLAX] 17 gm PO HS 05/11/17 [History] Acetaminophen [Tylenol] 650 mg PO Q6H PRN 05/26/17 [History] Aspirin Enteric Coated [Aspirin EC] 81 mg PO DAILY 05/26/17 [History] Bisacodyl [Dulcolax] 10 mg RC DAILY PRN 05/26/17 [History] Calcium Carbonate/Vitamin D3 [Calcium 500-Vit D3 200 Tablet] 1 each PO DAILY [History] Insulin Glargine [Lantus] 8 unit SQ HS 05/26/17 [History] Insulin LISPRO [HumaLOG] 2 - 10 unit SQ TID 05/26/17 [History] Metoprolol [Lopressor] 25 mg PO BID 05/26/17 [History] Omeprazole [PriLOSEC] 40 mg PO DAILY 05/26/17 [History] Oxycodone HCl 5 mg PO Q6H PRN 05/26/17 [History] Sevelamer [Renvela] 800 mg PO TIDWM 05/26/17 [History] 3 Allergy/AdvReac Type Severity Reaction Status Date / Time Sulfa (Sulfonamide Allergy Rash Verified 04/30/17 09:49 Antibiotics) ROS unobtainable: due to endotracheal tube, due to mental status Palliative Care-Exam - Constitutional Vitals: Temp Pulse Resp BP Pulse Ox 98.5 F 75 24 90/55 96 05/28/17 11:57 05/28/17 12:56 05/28/17 12:56 05/28/17 12:56 01/26/18 12:56 General appearance: Present: no acute distress - Head Head Exam: Present: normal inspection, normocephalic - Eye Eye exam: Present: normal appearance, PERRL - Respiratory Respiratory exam: Present: CTAB - Cardiovascular Cardiovascular exam: Present: +S1, +S2 - GI/Abdominal Exam GI/Abdominal exam: Present: distended, soft - Catheter Type: Urethral (Patricia) - Extremities Exam Additional comments: generalized edema to upper and lower extremities. Left arm appears necrotic - some drainage. Old rhys intact - Neurological Exam Additional comments: Eyes open with assessment. Does not follow commands - Skin Skin exam: Present: dry, pallor, warm Internal Medicine - CN: Reslt - Labs CBC & Chem 7: 05/28/17 03:16 05/28/17 03:16 Labs: Short CBC 05/27/17 05/28/17 Range/Units 19:28 03:16 WBC 16.5 H 15.9 H (4.3-11.1) K/mcL Hgb 9.1 L 8.6 L (12.9-16.9) g/dL Hct 30.8 L 29.3 L (37.5-50.1) % Plt Count 475 H 458 H (140-400) K/mcL Neutrophils # 14.0 H 13.5 H (1.6-8.9) K/mcL BMP 05/27/17 05/28/17 19:28 03:16 Sodium 130 L 131 L Potassium 3.8 3.9 Chloride 93 L 93 L Carbon Dioxide 22 L 24 BUN 34 H 36 H Creatinine 4.54 H 4.79 H Glucose 218 H 169 H Calcium 7.5 L 7.3 L Liver Function 05/27/17 Range/Units 19:28 Total Bilirubin 0.8 (0.3-1.0) mg/dL AST > 3000 H (13-39) Units/L ALT 329 H (7-52) Units/L Alkaline Phosphatase 334 H (34-104) Units/L Albumin 2.3 L (3.5-5.7) g/dL - ABG Interpretation ABG results: ABG ABG pH 7.19 pH Units (7.32-7.45) L* 05/27/17 03:53 ABG pCO2 35 mmHg (35-45) 05/27/17 03:53 ABG pO2 121 mmHg (85-104) H D 05/27/17 03:53 ABG O2 Saturation 98 % (95-98) 05/27/17 03:53 PT/INR, D-dimer PT 34.7 Seconds (9.4-12.1) H 05/27/17 05:30 - Impressions Impressions Echocardiogram 05/27/17 06:56 Impressions: Technically challenging study with suboptimal windows. Difficult to estimate LV systolic function even with use of Definity. Grossly, there is possibly mild to moderate reduction in function. Regional wall motion could not be evaluated on this study. Diastolic dysfunction with probable elevated filling pressures. RV is not well evaluated - grossly it appears dilated and severely hypokinetic. Mild-moderate tricuspid regurgitation. A device lead was visualized in the right atrium and right ventricle. Pericardial effusion is not visualized on this study. Left Ventricular Wall Motion: Rest Echo Findings The apex, apical lateral, mid anterior lateral and basal anterior lateral labert were hypokinetic. The apical septal, mid inferior septal and basal inferior septal albert were dyskinetic. The apical inferior, mid inferior, basal inferior, apical anterior, mid anterior, basal anterior, mid anterior septal, mid inferior lateral, basal anterior septal and basal inferior lateral albert were not visualized. Findings: Study Quality * Technically sub-optimal due to clinical status - patient intubated. ECG Findings * Paced rhythm. Left Ventricle * LV size and wall thickness were not well obtained. * Atypical septal motion. * Diastolic dysfunction with probable elevated filling pressures. * Unable to evaluate segmental wall motion due to technical quality. * LV systolic function grossly appears mild to moderately reduced but is not fully appreciated in multiple views even with use of Definity. Right Ventricle * RV is not well evaluated - grossly it appears dilated and severely hypokinetic. Left Atrium * Left atrium is not well visualized. Right Atrium * Right atrium is not well visualized. Aortic Valve * Aortic valve not well visualized. * No aortic stenosis. * No aortic regurgitation. Mitral Valve * Mitral valve not well visualized - probably thickened and calcified leaflets. * No mitral stenosis by Doppler. * No mitral regurgitation. Tricuspid Valve * Tricuspid valve not well visualized. * Mild-moderate tricuspid regurgitation. Pulmonic Valve * Pulmonic valve is not well visualized - Doppler not well obtained. Pulmonary Artery * Pulmonary artery not well visualized. Aorta * Not well visualized. Device lead * A device lead was visualized in the right atrium and right ventricle. Interatrial Septum * No evidence of PFO by color Doppler. Pericardium * There is no pericardial effusion present. IVC * The IVC is dilated - patient on mechanical ventilation. Upper Extremity CT 05/27/17 23:29 IMPRESSION: Diffuse soft tissue swelling with no definite evidence for abscess on a noncontrast exam. D/ / 05/27/2017 09:19:29 Espinoza Figueroa MD / tejal Interpreting Provider: Espinoza Figueroa MD Consult Discharge Plan - Plan Referrals: Jace Will DO [Primary Care Provider] - Palliative Quality Palliative Quality: Screen for Code Status: Yes, Screen for Goals of Care: Yes, Screen for Pain: Yes, If Pain Regimen Started, Initiate Bowel Regimen: NA, Screen for Nausea/Vomitting: Yes Code Status: 05/27/17 08:28 CODE [Resuscitation Status: Active] [RES] Routine Comment: Resuscitation Status: DNR-Comfort Care-Arrest 05/28/17 11:49 CODE [Resuscitation Status: Active] [RES] Routine Comment: Resuscitation Status: DNR-Comfort Care
--- NOTE | 2017-05-28 13:22 | Nephrology Progress Note ---
Date of Encounter: 05/28/17 Time of Encounter: 12:00 - Assessment and Plan (1) ESRD (end stage renal disease) Status: Chronic Lytes fairly stable with potassium WNL and sodium slightly low. Discussed at length with daughter and who made it very clear that patient would not want to continue in his current state and would prefer terminal wean off vent later today They do not want [place] as an option at this time given persistent hypotension. Will continue to withhold all dialytic support at this time and follow peripherally (2) Acute respiratory failure with hypoxia Status: Acute (3) Ischemia of left upper extremity Status: Acute (4) Septic shock Status: Suspected Subjective Interval history: Interim events noted. Pt seen and examined with nurse at bedside along with and one of his daughters intubated on pressor support as well as fentanyl gtt Objective - Vital Signs Vital signs: Vital Signs Temp Pulse Resp BP Pulse Ox 05/28/17 13:03 75 05/28/17 12:56 75 24 90/55 96 05/28/17 11:57 98.5 F 05/28/17 11:02 24 96 05/28/17 10:30 24 96 05/28/17 09:00 74 24 97/51 94 05/28/17 08:44 24 94 05/28/17 08:04 76 05/28/17 08:00 70 24 91/52 97 05/28/17 07:00 98.9 F 05/28/17 05:46 70 24 113/53 97 05/28/17 05:35 24 112/58 97 05/28/17 04:42 65 24 108/64 97 05/28/17 03:51 24 101/61 99 05/28/17 03:46 68 24 101/61 99 05/28/17 03:07 96.9 F L 65 24 114/58 100 05/28/17 02:00 96.9 F L 71 24 89/55 100 05/28/17 01:29 24 95/47 100 05/28/17 00:57 60 24 93/61 100 05/28/17 00:01 24 118/76 100 05/28/17 00:00 60 24 86/53 99 05/27/17 22:48 59 24 108/62 98 05/27/17 21:48 66 24 122/62 100 05/27/17 21:30 24 120/59 97 05/27/17 20:41 68 24 110/54 100 05/27/17 20:35 96.5 F L 05/27/17 19:41 24 130/59 97 05/27/17 19:38 71 24 130/59 97 18 18:29 25 97 05/27/17 18:00 65 20 88/44 100 05/27/17 17:00 66 20 114/61 100 05/27/17 16:01 24 100 05/27/17 16:00 66 20 115/61 100 05/27/17 15:10 70 05/27/17 15:00 97.8 F 71 25 105/56 99 05/27/17 14:00 77 25 95/45 99 05/27/17 13:50 25 99 Intake and Output 05/27/17 05/28/17 05/28/17 23:59 07:59 15:59 Intake Total 1140 / 1140 1489 / 1489 200 / 200 Output Total 0 / 0 0 / 0 Balance 1140 / 1140 1489 / 1489 200 / 200 Intake: IV Fluids 1140 / 1140 1489 / 1489 200 / 200 FentaNYL (PF) 1,000 MCG In 0.9 86 / 86 % Sodium Chloride 80 ML @ 25 MCG/HR 2.5 mls/hr IVC CONT [facility] Rx#:[id number] Heparin 25,000 UNIT/500 ML D5W 240 / 240 25,000 unit In 500 ml @ 9.7 UNIT/KG/HR 20.176 mls/hr IVC . Q24H [facility] Rx#:[id number] Levophed 4 MG In Dextrose 5% 254 / 254 229 / 229 250 ML @ 8 MCG/MIN 30.48 mls/hr IVC CONT [facility] Rx#:[id number] Sodium Bicarbonate 150 MEQ In 1150 / 1150 Dextrose 5% 1,000 ML @ 60 mls/ hr IVC .[id number] [facility] Rx#: [id number] Calcium Gluconate 1,000 MG In 0 110 / 110 110 / 110 .9 % Sodium Chloride 100 ML @ 203.494 mls/hr IVPB Q6HR PRN Rx #:[id number] Zosyn Premix 3.375 GM/200 ML 3. 200 / 200 200 / 200 375 gm In 200 ml @ 50 mls/hr IVPB Q12H [facility] Rx#:[id number] Vancocin 1,500 MG In Dextrose 5 250 / 250 % 250 ML @ 166.667 mls/hr IVPB ONCE ONE Rx#:[id number] Oral 0 / 0 0 / 0 Output: Catheter 0 / 0 0 / 0 Urethral (Patricia) 0 / 0 Other: Stool Size Moderate Small Stool Consistency soft soft Stool Color Brown Brown # Bowel Movements 1 1 Weight 109.7 kg Blood Glucose* 184 193 - General Appearance General appearance: Present: sedated on ventilator, intubated EENT: Present: ATNC, mucous membranes moist Neck: Present: no JVD, supple Respiratory: Present: course breath sounds Cardiology: Present: normal S1, normal S2 Dialysis Vascular Access: Venous Catheter (permcath) Gastrointestinal: Present: no tenderness, no guarding Integumentary: Present: cool/clammy (LUE with dressing and areas of necrosis) Additional Comments: sedated/intubated Musculoskeletal: Present: deformities (as noted above) Additional Comments: intubated/sedated - Lab 05/28/17 03:16 05/28/17 03:16 Most recent lab results ABG pH 7.19 pH Units (7.32-7.45) L* 05/27/17 03:53 ABG pCO2 35 mmHg (35-45) 05/27/17 03:53 ABG pO2 121 mmHg (85-104) H D 05/27/17 03:53 ABG HCO3 13 mEq/L (21-27) L 05/27/17 03:53 ABG O2 Saturation 98 % (95-98) 05/27/17 03:53 Calcium 7.3 mg/dL (8.6-10.3) L 05/28/17 03:16 Magnesium 1.9 mg/dL (1.6-2.6) 05/27/17 19:28 Consult Discharge Plan - Plan Referrals: Jace Will DO [Primary Care Provider] -
[2017-05-28] MEDS ORDERED: *HR* LORazepam 2 MG/ML VIAL IVP PRN ×2 (13:32→16:47)
[2017-05-28] MEDS ORDERED: FentaNYL (PF) 1,000 MCG in 0.9 % Sodium Chloride 80 ML IVC SCH ×2 (13:33→16:47)
[2017-05-28] MEDS ORDERED: Atropine Sulfate 1% 40 DROP/2 ML BOTTLE SL PRN ×2 (13:34→16:47)
[2017-05-28] MEDS ORDERED: Scopolamine Patch 1.5 MG PATCH.TD72 TD PRN ×2 (13:35→16:47)
--- NOTE | 2017-05-28 15:49 | Event Note ---
Date of Encounter: 05/28/17 Time of Encounter: 15:45 Patient has been extubated - stable and appears comfortable with Fentanyl drip at 100mcg/hr. If palliative bed is available, he can transition to 2A under hospitalist care. If he survives weekend, will evaluate for general inpt hospice transition on Wednesday. Continue to follow closely
[2017-05-28] MEDS ORDERED: *HR* FentaNYL (PF) 100 MCG/2 ML VIAL IVP PRN (16:48)
[2017-05-28 20:44] VITALS: BP 68/39
[2017-05-29] MEDS ORDERED: *HR* EPINEPHrine 1 MG/10 ML SYRINGE IVP ONE (05:19)
--- NOTE | 2017-05-29 05:55 | Death Note ---
Discharge Sum: Summary - Date and Time Date of admission: 05/26/17 22:41 Date of : 05/29/17 Time of : 05:20 - Summary Details: Mr. Nicole was a 76-year-old gentleman with history of end-stage renal disease on dialysis, LUE cellulitis and necrotic tissue, and pacemaker who presented to the hospital after losing consciousness while receiving hemodialysis. At that time the patient was found to have acute respiratory failure with hypoxia and a severe lactic acidosis likely secondary to refractory status and severe necrotic infection of the left upper extremity secondary to AV graft fistula complication. It was determined that the patient likely had gangrenous necrosis of the soft-tissue which had progressed from significant cellulitis that was treated on previous admission. The patient at that time was found to be hypoglycemic and hypotensive, and received a central venous catheter and placement in the ICU with broad-spectrum antibiotics. Although he was initially placed on BiPAP, the patient subsequently required endotracheal intubation and mechanical ventilation. Patient initially began to develop bilateral pleural effusions. He remained in septic shock with pressors on board to maintain hemodynamic status. Nephrology, cardiology, and vascular surgery were consulted on the patient. There was extensive discussion with family at this time regarding surgical options to remove necrotic tissue from the arm and attempt to restabilize the patient, however family indicated that they no longer wished to pursue aggressive measures. Palliative care was consulted, and the patient was changed to DNR-cca-DNI status. Ultimately, the patient underwent terminal extubation in the afternoon of 05/28/17, and was transferred to the palliative care unit. Comfort measures were taken, and patient never regained consciousness. At 0520 the patient with family at bedside. - Additional Data Confirmation of as documented by pronouncing clinician: no pulse, no respirations, no heart sounds, pupils fixed and dilated Family: at bedside Additional persons at bedside: other (Nurse) Attending/PCP notified?: Yes Attending physician: Aguila Tolentino MD Was code activated?: No Autopsy requested?: No gas examiner notified?: No Hospice patient?: Yes Discharge Sum: Diag - PCOD Probable Cause of : Acute respiratory failure Discharge Sum: Prov - Provider Primary care physician: Jace Will DO Admitting clinician: Tam Graham Attending physician on admission: Tam Graham Consults: 05/26/17 23:32 Consult to Cardiology [CONS] Routine Comment: Consulting Provider: Cardiology Genia Reason for Consult: Elevated trop, pacer not capturing, pericardial effusion, Call Completed: Yes 05/28/17 06:31 Consult to Palliative Care [CONS] Routine Comment: Consulting Provider: Palliative Care Genia Reason for Consult: End of life decisions Call Completed: No Pronouncing clinician: Lino Cuello ([id number])
--- NOTE | 2017-05-29 06:17 | Death Note ---
Pronouncement Note - Additional Data Attending physician: Aguila Tolentino MD
--- NOTE | 2017-05-29 10:21 | Electrocardiograph Report ---
[address] [address] Test Date: 2017-05-26 Pat Name: Pawan Nicole Department: 104 Room: [facility] Gender: M Brim Setter: CHAITANYA : 1940 Requested By: Joe Villareal Order Number: [id number] Reading MD: Lizett Gonzalez Measurements Intervals [place] Rate: 85 P: 66 UT: 118 QRS: 30 QRSD: 65 T: 27 QT: 348 QTc: 390 Interpretive Statements ELECTRONIC ATRIAL AND VENTRICULAR PACING Electronically Signed On 05-29-2017 10:20:25 EST by Lizett Gonzalez
== END 2017-05-29 05:20 | disposition expired | DRG 314 ==
LOC: EMEROO 19:08 → ICNU 22:41 → 2ANU 05-28 19:33
PROVIDERS: ADMIT Internal Medicine; ATTEND Internal Medicine